=== PATIENT | male | born 1935 | race American Indian/Alaskan Native ===

== ENCOUNTER 2017-02-09 18:37 | Inpatient (IN) | payer MEDICARE ==
[2017-02-09 18:38] VITALS: BMI 24.3
[2017-02-09 19:30] LABS: RBC URINE 758 /hpf (0-3); URINE BACTERIA RARE (<OCC); URINE BILIRUBIN NEGATIVE (NEGATIVE); URINE BLOOD 3+ (NEGATIVE); URINE COLOR Red (YELLOW); URINE GLUCOSE (UA) NORMAL (Normal); URINE KETONE NEGATIVE (NEGATIVE); URINE LEUKOCYTE ESTERASE 2+ Leu/uL (Negative); URINE PROTEIN 2+ mg/dL (NEGATIVE); URINE UROBILINOGEN NORMAL mg/dL (0.2-1.0); WBC URINE 37 /hpf (0-5)
--- NOTE | 2017-02-09 20:05 | C.PDOC ---
History Of Present Illness Patient presents to the ER with a complaint of suprapubic cramping and blood tinged urine. Patient reports he had an indwelling hall placed 2 days ago. Denies fever, chills, nausea, or vomiting. Time Seen by Provider: 02/09/17 19:31 Chief Complaint (Nursing): Male Genitourinary History Per: Patient History/Exam Limitations: no limitations Onset/Duration Of Symptoms: Days Current Symptoms Are (Timing): Still Present Severity: Mild Pain Scale Rating Of: 4 Quality Of Discomfort: Cramping Associated Symptoms: Urinary Symptoms (Blood tinged urine). denies: Fever, Chills, Nausea, Vomiting Alleviating Factors: None Recent travel outside of the [place]: No Past Medical History Reviewed: Historical Data, Nursing Documentation, Vital Signs Vital Signs: Last Vital Signs Temp 97.5 F L 02/09/17 18:43 Pulse 85 02/09/17 18:43 Resp 16 02/09/17 18:43 BP 192/112 H 02/09/17 18:43 Pulse Ox 98 02/09/17 20:11 - Medical History PMH: Fractures (LEFT HEEL), Gall Bladder Disease, HTN, Pneumonia (CHILDHOOD) Surgical History: Cholecystectomy Family History: States: Unknown Family Hx - Social History Hx Alcohol Use: No Hx Substance Use: No Review Of Systems Constitutional: Negative for: Fever, Chills Gastrointestinal: Positive for: Abdominal Pain. Negative for: Nausea, Vomiting Genitourinary: Positive for: Other (Blood tinged urine) Physical Exam - Physical Exam Appears: Non-toxic, No Acute Distress Skin: Warm, Dry Head: Normacephalic Oral Mucosa: Moist Chest: Symmetrical, No Tenderness Cardiovascular: Rhythm Regular Respiratory: No Rales, No Rhonchi, No Wheezing Gastrointestinal/Abdominal: Soft, Tenderness (Suprapubic) Rectal: Other (Indwelling hall with leg bag that shows blood tinged urine with small blood clots) Neurological/Psych: Oriented x3 ED Course And Treatment O2 Sat by Pulse Oximetry: 98 (Room air) Pulse Ox Interpretation: Normal Progress Note: Urinalysis ordered. Catheter flushed with 50cc saline, appears patent. Disposition Discussed With : Chetan Ferguson Comment: accepted the pt on his service and took over the care at 9:00PM Counseled Patient/Family Regarding: Studies Performed - Disposition Disposition: HOSPITALIZED Disposition Time: 21:06 Condition: FAIR Forms: [facility] (Nepali) - POA Present On Arrival: None - Clinical Impression Clinical Impression: Hematuria, Hall catheter problem - Scribe Statement The provider has reviewed the documentation as recorded by the Scribe Anshul Plunkett All medical record entries made by the Scribe were at my direction and personally dictated by me. I have reviewed the chart and agree that the record accurately reflects my personal performance of the history, physical exam, medical decision making, and the department course for this patient. I have also personally directed, reviewed, and agree with the discharge instructions and disposition. Decision To Admit - Pt Status Changed To: Hospital Disposition Of: Observation - . Bed Request Type: Regular Admitting Physician: Chetan Ferguson Patient Diagnosis: Hematuria, Hall catheter problem
[2017-02-09 21:23] LABS: EOS # 0.1 K/uL (0.0-0.7); MONO # 0.6 K/uL (0.0-0.8); RED CELL DISTRIBUTION WIDTH 13.6 % (11.5-14.5)
[2017-02-09 21:31] LABS: BASO % 0.5 % (0.0-2.0); CHLORIDE 98 mmol/L (98-107); EOS % 2.2 % (0.0-4.0); HEMATOCRIT 43.5 % (35.0-51.0); LYMPH # 1.7 K/uL (1.0-4.3); LYMPH % 25.7 % (20.0-40.0); MEAN CELL VOLUME 84.2 fL (80.0-94.0); MEAN CORPUSCULAR HEMOGLOBIN 28.8 pg (27.0-31.0); MEAN CORPUSCULAR HGB CONC 34.2 g/dL (33.0-37.0); MEAN PLATELET VOLUME 8.2 fL (7.2-11.7); MONO % 8.8 % (0.0-10.0); NRBC % 0.1 % (0.0-2.0); POTASSIUM 4.4 mmol/L (3.6-5.2); SODIUM 135 mmol/L (132-148)
[2017-02-09 21:32] LABS: WHITE BLOOD COUNT 6.5 K/uL (4.8-10.8)
[2017-02-09 21:34] LABS: BLOOD UREA NITROGEN 12 mg/dL (9-20); CARBON DIOXIDE 29 mmol/L (22-30); GFR AFRICAN-AMERICAN > 60; GLUCOSE,RANDOM 124 mg/dL (75-110)
[2017-02-10] MEDS ORDERED: Loperamide Hydrochloride 1 mg/5 ml Cup PO ONE (00:46)
[2017-02-10] MEDS ORDERED: Pneumococcal 23-Valent Vaccine IM ONE (02:12)
[2017-02-10] MEDS: Metoprolol Succinate 25 mg XL Tab PO SCH (09:50)
[2017-02-10] MEDS: Pantoprazole 20 mg EC Tab PO SCH (09:50)
--- NOTE | 2017-02-10 12:57 | PCM.URO ---
Urology Progress Note - Subjective Abdominal Pain: Yes Hematuria: Yes - Objective Lab Studies: Reviewed (retention) Lab Results Last 24 Hours: Laboratory Results - last 24 hr 02/09/17 02/09/17 02/09/17 19:22 21:20 21:20 WBC 6.5 D RBC 5.17 Hgb 14.9 Hct 43.5 MCV 84.2 MCH 28.8 MCHC 34.2 RDW 13.6 Plt Count 237 MPV 8.2 Neut % (Auto) 62.8 Lymph % (Auto) 25.7 [place] % (Auto) 8.8 Eos % (Auto) 2.2 Baso % (Auto) 0.5 Neut # 4.1 Lymph # 1.7 [place] # 0.6 Eos # 0.1 Baso # 0.0 Sodium 135 Potassium 4.4 Chloride 98 Carbon Dioxide 29 Anion Gap 13 BUN 12 Creatinine 1.1 Est GFR ( Amer) > 60 Est GFR (Non-Af Amer) > 60 Random Glucose 124 H Calcium 9.0 Urine Color Red Urine Clarity Hazy Urine pH 6.0 Ur Specific [place] 1.014 Urine Protein 2+ H Urine Glucose (UA) Normal Urine Ketones Negative Urine Blood 3+ H Urine Nitrate Negative Urine Bilirubin Negative Urine Urobilinogen Normal Ur Leukocyte Esterase 2+ H Urine WBC (Auto) 37 H Urine RBC (Auto) 758 H Urine Bacteria Rare Intake & Output: Intake & Output 02/09/17 02/10/17 02/10/17 18:59 06:59 18:59 Output Total 500 Balance -500 Weight 170 lb Output: Urine 500 Urethral (Ole[place]) 500 Other: Voiding Method Indwelling Catheter Vital Signs: Vital Signs - 24 hr 02/09/17 02/09/17 02/09/17 18:43 21:11 22:28 Temperature 97.5 F L Pulse Rate 85 84 Respiratory 16 16 Rate Blood Pressure 192/112 H 141/80 O2 Sat by Pulse 98 98 99 Oximetry 02/10/17 02/10/17 00:00 01:28 Temperature 98.1 F Pulse Rate 74 Respiratory 20 18 Rate Blood Pressure 142/77 O2 Sat by Pulse 97 Oximetry
[2017-02-10] MEDS ORDERED: Magnesium Hydroxide Susp 30 ml UD PO ONE (13:30)
[2017-02-11 04:06] VITALS: RESP 20
[2017-02-11] MEDS ORDERED: Pneumococcal 23-Valent Vaccine IM ONE (10:00)
[2017-02-11] MEDS ORDERED: Influenza Vaccine 60 mcg/0.5 mL SYR (4YR UP) IM ONE (10:00)
[2017-02-11] MEDS: Metoprolol Succinate 25 mg XL Tab PO SCH (10:19)
[2017-02-11] MEDS: Pantoprazole 20 mg EC Tab PO SCH (10:23)
[2017-02-11] MEDS ORDERED: Magnesium Hydroxide Susp 30 ml UD PO ONE (10:47)
[2017-02-11] MEDS ORDERED: Oxycodone/Acetaminophen 5/325 mg Tab PO ONE (10:49)
--- NOTE | 2017-02-11 14:39 | PCM.URO ---
Urology Progress Note - Objective Lab Studies: Reviewed (trial of void) Intake & Output: Intake & Output 02/10/17 02/11/17 02/11/17 18:59 06:59 18:59 Intake Total 500 Output Total 1100 1200 3350 Balance -1100 -700 -3350 Intake: Oral 500 Output: Urine 1100 1200 3350 Urethral (Olea) 1100 1200 2975 Urine, Voided 375 Vital Signs: Vital Signs - 24 hr 02/11/17 02/11/17 00:00 07:25 Temperature 98.3 F 97.6 F Pulse Rate 67 65 Respiratory 20 20 Rate Blood Pressure 151/81 H 138/76 O2 Sat by Pulse 95 96 Oximetry
[2017-02-12] MEDS: Metoprolol Succinate 25 mg XL Tab PO SCH (09:35)
[2017-02-12] MEDS: Pantoprazole 20 mg EC Tab PO SCH (09:35)
[2017-02-13] MEDS: Metoprolol Succinate 25 mg XL Tab PO SCH (09:25)
[2017-02-13] MEDS: Pantoprazole 20 mg EC Tab PO SCH (09:30)
--- NOTE | 2017-02-13 21:06 | PCM.URO ---
Urology Progress Note - General General: absent: Tolerating Diet - Subjective Abdominal Pain: Yes (and pain of genitalia/urethra) Vomiting: No Voiding Well: No Dysuria: Yes Hematuria: No Good Stream: No (fair stream) Chest Pain: No Fever & Chills: No - Objective Intake & Output: Intake & Output 02/13/17 02/13/17 02/14/17 06:59 18:59 06:59 Intake Total 940 480 Output Total 1750 400 Balance -810 80 Intake: Intake, IV Amount 100 Right Hand 100 Oral 840 480 Output: Urine 1750 400 Urine, Voided 1750 400 Other: # Voids Urine, Voided 2 3 # Bowel Movements 1 1 Vital Signs: Vital Signs - 24 hr 02/13/17 02/13/17 02/13/17 00:00 07:50 15:00 Temperature 98 F 98.7 F 97.3 F L Pulse Rate 70 78 69 Respiratory 20 20 20 Rate Blood Pressure 143/76 128/75 141/96 H O2 Sat by Pulse 100 95 96 Oximetry - Physical Exam Abdominal Exam: Soft. absent: Non-Tender, Non-Distended (suprapubic tenderness) Back: No CVA Tenderness Genitalia: Without Inflammation Urine Color: Yellow - Plan Ambulation - Out of Bed: Yes Intake & Output: Yes Additional Information: Imp: dysuria. BPH - Date & Time of Note Date: 02/13/17 Time: 10:45
[2017-02-14] MEDS ORDERED: Iohexol 240 (50 ml) PO ONE (10:30)
[2017-02-14] MEDS: Metoprolol Succinate 25 mg XL Tab PO SCH (10:53)
[2017-02-14] MEDS: Pantoprazole 20 mg EC Tab PO SCH (10:54)
[2017-02-14 11:42] LABS: BASO % 0.6 % (0.0-2.0); EOS # 0.3 K/uL (0.0-0.7); EOS % 6.9 % (0.0-4.0); LYMPH # 1.1 K/uL (1.0-4.3); LYMPH % 28.2 % (20.0-40.0); MEAN CELL VOLUME 84.3 fL (80.0-94.0); MEAN CORPUSCULAR HEMOGLOBIN 28.3 pg (27.0-31.0); MEAN CORPUSCULAR HGB CONC 33.6 g/dL (33.0-37.0); MONO # 0.4 K/uL (0.0-0.8); MONO % 9.2 % (0.0-10.0); NRBC % 0.7 % (0.0-2.0); RED CELL DISTRIBUTION WIDTH 13.6 % (11.5-14.5); WHITE BLOOD COUNT 4.1 K/uL (4.8-10.8)
[2017-02-14 11:55] LABS: BLOOD UREA NITROGEN 15 mg/dL (9-20); CALCIUM 8.3 mg/dl (8.6-10.4); CARBON DIOXIDE 27 mmol/L (22-30); CHLORIDE 97 mmol/L (98-107); GFR AFRICAN-AMERICAN > 60; GLUCOSE,RANDOM 105 mg/dL (75-110); POTASSIUM 3.7 mmol/L (3.6-5.2); SODIUM 132 mmol/L (132-148)
--- NOTE | 2017-02-14 13:55 | CT ---
PROCEDURE: CT Abdomen and Pelvis with contrast HISTORY: lower abd/penis pain COMPARISON: None. TECHNIQUE: Helical CT of the abdomen and pelvis was performed following oral contrast administration. Contrast dose: None - intravenous contrast withheld due to history of iodinated contrast allergy. Radiation dose: Total exam DLP = 819.53 mGy-cm. This CT exam was performed using one or more of the following dose reduction techniques: Automated exposure control, adjustment of the mA and/or kV according to patient size, and/or use of iterative reconstruction technique. FINDINGS: LOWER THORAX: Trace oral contrast identified within the esophagus small hiatal hernia is identified. Limited linear atelectasis or fibrosis in the bilateral bases. LIVER: A 6 mm lucency seen at the right lobe liver inferiorly, too small to characterize. Remainder the unenhanced liver is unremarkable. GALLBLADDER AND BILE DUCTS: Prior cholecystectomy. Likely related prominence of the common bile duct is appreciated up to approximately 8 mm at the proximal to mid segment. No radiodense choledocholithiasis. PANCREAS: Unremarkable. No gross lesion or ductal dilatation. SPLEEN: Unremarkable. ADRENALS: Unremarkable. No mass. KIDNEYS AND URETERS: A punctate intrarenal calculus identified in the upper pole left kidney with a similar focus at the upper pole right kidney versus vascular calcification. No obstructive uropathy bilaterally. Nonspecific limited streaky perinephric changes are identified bilaterally. VASCULATURE: Unremarkable. No aortic aneurysm. BOWEL: Stomach is distended with retained food and oral contrast material with opacified small bowel loops appear diffusely unremarkable. Right colonic diverticulosis is appreciated, particularly at the proximal ascending colon and the cecum without diverticulitis pattern evident. Moderate fecal loading is seen throughout the colon. APPENDIX: Normal appendix. PERITONEUM: Unremarkable. No free fluid. No free air. LYMPH NODES: Unremarkable. No enlarged lymph nodes. BLADDER: Unremarkable. REPRODUCTIVE: Enlarged prostate gland is identified. BONES: No acute fracture. OTHER FINDINGS: None. IMPRESSION: 1. A distended but smooth and thin walled urinary bladder is identified in the pelvis. Punctate intrarenal calculi identified at the upper pole left kidney with a similar focus at the upper pole right kidney versus vascular calcification. No obstructive uropathy bilaterally. No pericystic reaction or fluid collection identified. 2. Right colonic diverticular changes without diverticulitis. Mildly prominent fecal loading seen throughout the more majority colon. 3. A tiny lucency seen at the right lobe liver too small to characterize. Lack of intravenous contrast limits evaluation. 4. Enlarged prostate gland.
--- NOTE | 2017-02-14 18:17 | CP.PCM.CON ---
<AndrewNehemiasKellee - Last Filed: 02/14/17 18:28> History of Present Illness - History of Present Illness History of Present Illness: Patient is an 81 year old male with PMH of leaky valve, HTN, HLD, and s/p ureteral stent placement presents with chest pain while urinating this morning. Patient reports no prior episode of chest pain or does it radiate. The chest pain lasted for less than a minute and gradually disappeared. Patient denies having the chest pain again since the first epsisode this morning. Patient states no remitting or exacerbation factors. Patient reports pain severity as 2- 3/10. Patient complains of suprapubic pain and dysuria since stent placement. Patient admits to hematuria and chills as well. Patient denies headache, fatigue , dizziness, SOB, palpitations, fever, N&V, diarrhea, constipation, LE pain, and LE edema. PMH: "leaky valve", HTN, HLD, and s/p ureteral stent placement Social Hx: Denies tobacco, alcohol, or illicit drug use. Allergies: shellfish Medications: * Flomax 0.4 mg x2 HS * Omeprazole 20 mg PO QD * Atorvastatin 20 mg PO QD * Toprol XL 25 mg PO QD * Cipro 500 mg Q12h * Norvasc 2.5 mg PO QD Surgical Hx: cholecystectomy Review of Systems - Review of Systems All systems: reviewed and no additional remarkable complaints except (as per HPI ) Past Patient History - Past Medical History & Family History Past Medical History?: Yes - Past Social History Smoking Status: Never Smoked - CARDIAC Hx Cardiac Disorders: Yes Hx Hypertension: Yes - PULMONARY Hx Respiratory Disorders: Yes Hx Pneumonia: Yes (CHILDHOOD) - NEUROLOGICAL Hx Neurological Disorder: Yes Hx Dizziness: Yes - HEENT Hx HEENT Problems: No - RENAL Hx Chronic Kidney Disease: No - ENDOCRINE/METABOLIC Hx Endocrine Disorders: No - HEMATOLOGICAL/ONCOLOGICAL Hx Blood Disorders: Yes Hx Shingles: Yes - INTEGUMENTARY Hx Dermatological Problems: No - MUSCULOSKELETAL/RHEUMATOLOGICAL Hx Falls: No - GASTROINTESTINAL Hx Gastrointestinal Disorders: No Hx Gall Bladder Disease: Yes - GENITOURINARY/GYNECOLOGICAL Hx Genitourinary Disorders: Yes Hx Prostate Problems: Yes - PSYCHIATRIC Hx Substance Use: No - SURGICAL HISTORY Hx Surgeries: No Hx Cholecystectomy: Yes - ANESTHESIA Hx Anesthesia: Yes Hx Anesthesia Reactions: No Hx Malignant Hyperthermia: No Has any member of the family had a problem w/ anesthesia?: No Meds Allergies/Adverse Reactions: Allergies Allergy/AdvReac Type Severity Reaction Status Date / Time shellfish derived AdvReac Severe NAUSEA Verified 02/09/17 18:40 - Medications Medications: Current Medications Amlodipine Besylate (Norvasc) 2.5 mg PO DAILY [facility] Last Admin: 02/14/17 10:54 Dose: 2.5 mg Ciprofloxacin (Cipro) 500 mg PO Q12 [facility] Last Admin: 02/14/17 10:53 Dose: 500 mg Doxycycline Hyclate (Doryx) 100 mg PO Q12H [facility] Last Admin: 02/14/17 17:42 Dose: 100 mg Gentamicin Sulfate 80 mg/ (Sodium Chloride) 102 mls @ 100 mls/hr IVPB Q24H [facility] Last Admin: 02/14/17 17:42 Dose: 100 mls/hr Ketorolac Tromethamine (Toradol) 15 mg IVP Q6 PRN PRN Reason: Pain, moderate (4-7) Metoprolol Succinate (Toprol Xl) 25 mg PO DAILY [facility] Last Admin: 02/14/17 10:53 Dose: 25 mg Oxybutynin Chloride (Ditropan Tab) 5 mg PO TID [facility] Last Admin: 02/14/17 17:42 Dose: 5 mg Pantoprazole Sodium (Protonix Ec Tab) 20 mg PO DAILY [facility] Last Admin: 02/14/17 10:54 Dose: 20 mg Phenazopyridine HCl (Pyridium) 200 mg PO TIDPC [facility] Last Admin: 02/14/17 17:42 Dose: 200 mg Rosuvastatin Calcium (Crestor) 10 mg PO HS [facility] Last Admin: 02/13/17 22:02 Dose: 10 mg Physical Exam - Constitutional Appears: Non-toxic, No Acute Distress, Younger Than Stated Age - Head Exam Head Exam: ATRAUMATIC, NORMAL INSPECTION, NORMOCEPHALIC - Eye Exam Eye Exam: EOMI, Normal appearance - ENT Exam ENT Exam: Mucous Membranes Moist - Respiratory Exam Respiratory Exam: Clear to Auscultation Bilateral, NORMAL BREATHING PATTERN. absent: Accessory Muscle Use, Rales, Rhonchi, Wheezes, Respiratory Distress - Cardiovascular Exam Cardiovascular Exam: RRR, +S1, +S2. absent: Bradycardia, Tachycardia, Diastolic murmur, Gallop, Rubs, Systolic Murmur - GI/Abdominal Exam GI & Abdominal Exam: Distended, Normal Bowel Sounds, Soft. absent: Guarding, Tenderness - Extremities Exam Extremities exam: Positive for: normal inspection. Negative for: calf tenderness, pedal edema - Neurological Exam Neurological exam: Alert, Oriented x3 - Psychiatric Exam Psychiatric exam: Normal Affect, Normal Mood - Skin Skin Exam: Dry, Intact, Normal Color, Warm Results - Vital Signs Recent Vital Signs: Last Vital Signs Temp 97.5 F L 02/14/17 15:00 Pulse 62 02/14/17 15:00 Resp 20 02/14/17 15:00 BP 138/77 02/14/17 15:00 Pulse Ox 96 02/14/17 15:00 - Labs Result Diagrams: 02/14/17 11:27 02/14/17 11:27 Labs: Laboratory Results - last 24 hr 02/14/17 02/14/17 11:27 11:27 WBC 4.1 L RBC 5.10 Hgb 14.4 Hct 43.0 MCV 84.3 MCH 28.3 MCHC 33.6 RDW 13.6 Plt Count 268 MPV 8.0 Neut % (Auto) 55.1 Lymph % (Auto) 28.2 [place] % (Auto) 9.2 Eos % (Auto) 6.9 H Baso % (Auto) 0.6 Neut # 2.2 Lymph # 1.1 [place] # 0.4 Eos # 0.3 Baso # 0.0 Sodium 132 Potassium 3.7 Chloride 97 L Carbon Dioxide 27 Anion Gap 11 BUN 15 Creatinine 1.1 Est GFR ( Amer) > 60 Est GFR (Non-Af Amer) > 60 Random Glucose 105 Calcium 8.3 L Assessment & Plan (1) Chest pain Assessment and Plan: * Dr. Dowd (cardio) consulted - recs appreciated * Dr. Duff/Dr. 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 Ferguson (urology) following * Continue home meds and others recs per Dr. Ferguson Status: Chronic (3) HTN (hypertension) Assessment and Plan: * continue home meds as stated above * Monitor Status: Acute (4) HLD (hyperlipidemia) Assessment and Plan: * Continue home meds as stated above * F/U lipid panel Status: Acute (5) Valvular disease Assessment and Plan: * F/U with PMD (Dr. Hughes) to clarify this medical history Status: Acute (6) Prophylactic measure Assessment and Plan: * contraindication to DVT prophylaxis: recent bleeding * continue GI prohylaxis Status: Acute <Amy Rodriguez V - Last Filed: 02/14/17 22:22> Meds - Medications Medications: Current Medications Amlodipine Besylate (Norvasc) 2.5 mg PO DAILY [facility] Last Admin: 02/14/17 10:54 Dose: 2.5 mg Ciprofloxacin (Cipro) 500 mg PO Q12 [facility] Last Admin: 02/14/17 21:59 Dose: 500 mg Doxycycline Hyclate (Doryx) 100 mg PO Q12H [facility] Last Admin: 02/14/17 17:42 Dose: 100 mg Gentamicin Sulfate 80 mg/ (Sodium Chloride) 102 mls @ 100 mls/hr IVPB Q24H [facility] Last Admin: 02/14/17 17:42 Dose: 100 mls/hr Ketorolac Tromethamine (Toradol) 15 mg IVP Q6 PRN PRN Reason: Pain, moderate (4-7) Last Admin: 02/14/17 18:16 Dose: 15 mg Metoprolol Succinate (Toprol Xl) 25 mg PO DAILY [facility] Last Admin: 02/14/17 10:53 Dose: 25 mg Oxybutynin Chloride (Ditropan Tab) 5 mg PO TID [facility] Last Admin: 02/14/17 17:42 Dose: 5 mg Pantoprazole Sodium (Protonix Ec Tab) 20 mg PO DAILY [facility] Last Admin: 02/14/17 10:54 Dose: 20 mg Phenazopyridine HCl (Pyridium) 200 mg PO TIDPC [facility] Last Admin: 02/14/17 17:42 Dose: 200 mg Ranolazine (Ranexa) 500 mg PO BID [facility] Rosuvastatin Calcium (Crestor) 10 mg PO HS [facility] Last Admin: 02/14/17 22:00 Dose: 10 mg Results - Vital Signs Recent Vital Signs: Last Vital Signs Temp 97.5 F L 02/14/17 15:00 Pulse 62 02/14/17 15:00 Resp 20 02/14/17 15:00 BP 138/77 02/14/17 15:00 Pulse Ox 96 02/14/17 15:00 - Labs Result Diagrams: 02/14/17 11:27 02/14/17 11:27 Labs: Laboratory Results - last 24 hr 02/14/17 02/14/17 02/14/17 11:27 11:27 19:56 WBC 4.1 L RBC 5.10 Hgb 14.4 Hct 43.0 MCV 84.3 MCH 28.3 MCHC 33.6 RDW 13.6 Plt Count 268 MPV 8.0 Neut % (Auto) 55.1 Lymph % (Auto) 28.2 [place] % (Auto) 9.2 Eos % (Auto) 6.9 H Baso % (Auto) 0.6 Neut # 2.2 Lymph # 1.1 [place] # 0.4 Eos # 0.3 Baso # 0.0 Sodium 132 Potassium 3.7 Chloride 97 L Carbon Dioxide 27 Anion Gap 11 BUN 15 Creatinine 1.1 Est GFR ( Amer) > 60 Est GFR (Non-Af Amer) > 60 Random Glucose 105 Calcium 8.3 L Total Creatine Kinase 117 CK-MB (Mass) 0.91 Troponin I, Quant < 0.0120 Attending/Attestation - Attestation I have personally seen and examined this patient.: Yes I have fully participated in the care of the patient.: Yes I have reviewed all pertinent clinical information: Yes Notes (Text): Patient seen, examined, and case discussed with day-time resident. Patient seen with patient's brother present at bedside this evening. Patient permits speaking about his medical information in front of his brother. Patient with known hx of hypertension, and leaky valve comes under the urology service following urologic procedure about one week ago. Hospitalist service consulted for medical management. patient had report chest pain, while using the bathroom in attempt to urinate this morning. While patient was getting up, patient had nonradiating chest pain which resolved. Patient denies further episodes of chest pain. Patient reports abdominal pain as well. Reviewed CT scan with the patient-->right colonic diverticular changes without diverticulitis. Mild prominent fecal loading seen throughout the majority of colon. Distended but smooth and thin walled urinary bladder is identified in the pevlis. Punctuate intrarenal calculi identified at the upper pole left kdieny w similar focus at upper pole right kidney versus vascular calcidcation. No obstructive uropathy bilaterally. No percystic reaction or fluid collection identified. Enlarged prostate. Patient is distended on exam, likely due to bladder-->had spoken with urologist earliery, planning on putting in [place] later today. Ordered for EKG and SANDRA, Troponin is negative. Unable to compare with prior EKG. Chest xray ordered--pending official report. Ordered for probnp, a1c, and lipid panel in the AM and ordered for echocardiogram. patient reports he is seen by Dr. Orourke/Dr. Pena cardiology group as outpatient. I believe Dr. Hughes, who is PMD, recommended to be seen by Dr. Dowd, horologist apprentice per conversation with urology. Patient showed his current medications that he takes outpatient. Patient is not on any blood thinner from his medication; will attempt to call PMD and/or pharmacy in the morning to clarify history. Assessment/Plan (1) Chest pain Assessment and Plan: * Dr. Dowd (cardio) consulted - recs appreciated * Dr. Duff/Dr. 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 Ferguson (urology) following * Continue home meds and others recs per Dr. Ferguson * Management per urology Status: Chronic (3) HTN (hypertension) Assessment and Plan: * Toprol XL 25 mg PO QDaily * Norvasc 2.5 mg PO QDaily Status: Chronic (4) HLD (hyperlipidemia) Assessment and Plan: * Continue home meds as stated above * F/U lipid panel in AM * Atorvastatin 20 mg PO Qdaily-->Switched to Crestor due to hospital availability Status: Acute (5) Valvular disease Assessment and Plan: * F/U with PMD (Dr. Hughes) to clarify this medical history * Pending echocardiogram Status: Acute (6) Prophylactic measure Assessment and Plan: * contraindication to DVT prophylaxis: recent bleeding * continue GI prohylaxis Status: Acute
[2017-02-14] MEDS: Ranolazine 500 mg Extended Release Tablets PO SCH (19:45)
[2017-02-15 06:59] LABS: ALKALINE PHOSPHATASE 80 U/L (38-126); ALT/SGPT 43 U/L (21-72); AST/SGOT 34 U/L (17-59); BILIRUBIN,TOTAL 0.6 mg/dL (0.2-1.3); BLOOD UREA NITROGEN 15 mg/dL (9-20); CALCIUM 8.4 mg/dl (8.6-10.4); CARBON DIOXIDE 26 mmol/L (22-30); CHLORIDE 101 mmol/L (98-107); CHOLESTEROL 104 mg/dL (0-199); GFR AFRICAN-AMERICAN > 60; GLUCOSE,RANDOM 82 mg/dL (75-110); MAGNESIUM 1.7 mg/dL (1.6-2.3); POTASSIUM 4.2 mmol/L (3.6-5.2); SODIUM 135 mmol/L (132-148); TOTAL PROTEIN 6.7 g/dL (6.3-8.3)
[2017-02-15 07:02] LABS: BASO % 0.7 % (0.0-2.0); EOS # 0.3 K/uL (0.0-0.7); EOS % 6.7 % (0.0-4.0); HEMATOCRIT 41.7 % (35.0-51.0); LYMPH # 1.5 K/uL (1.0-4.3); LYMPH % 33.1 % (20.0-40.0); MEAN CELL VOLUME 84.2 fL (80.0-94.0); MEAN CORPUSCULAR HEMOGLOBIN 28.6 pg (27.0-31.0); MEAN PLATELET VOLUME 7.9 fL (7.2-11.7); MONO # 0.5 K/uL (0.0-0.8); MONO % 10.8 % (0.0-10.0); NRBC % 0.1 % (0.0-2.0); RED CELL DISTRIBUTION WIDTH 13.8 % (11.5-14.5); WHITE BLOOD COUNT 4.5 K/uL (4.8-10.8)
--- NOTE | 2017-02-15 08:01 | RAD ---
HISTORY: chest pain COMPARISON: Chest radiographs 01/30/2017. FINDINGS: LUNGS: No definite infiltrate appreciate bilaterally with small nodular density faintly seen the left apex remaining difficult to differentiate between pulmonary density and possible medial left 1st rib density. Apical lordotic chest radiograph or chest CT can be utilized for follow-up. No infiltrate identified bilaterally. PLEURA: No significant pleural effusion identified, no pneumothorax apparent. CARDIOVASCULAR: Normal. OSSEOUS STRUCTURES: No significant abnormalities. VISUALIZED UPPER ABDOMEN: Surgical clips in the right upper quadrant abdomen as well as retained oral contrast within apparent upper abdomen large bowel segment. OTHER FINDINGS: None. IMPRESSION: No acute infiltrate or pleural effusion identified bilaterally. Nodular density at the left apex remains in question. Follow-up apical lordotic chest radiography or chest CT is advised for further evaluation.
--- NOTE | 2017-02-15 08:57 | PCM.URO ---
Urology Progress Note - Subjective Abdominal Pain: Yes - Objective Lab Studies: Reviewed (hall insertion for retention) Lab Results Last 24 Hours: Laboratory Results - last 24 hr 02/14/17 02/14/17 02/14/17 11:27 11:27 19:56 WBC 4.1 L RBC 5.10 Hgb 14.4 Hct 43.0 MCV 84.3 MCH 28.3 MCHC 33.6 RDW 13.6 Plt Count 268 MPV 8.0 Neut % (Auto) 55.1 Lymph % (Auto) 28.2 [place] % (Auto) 9.2 Eos % (Auto) 6.9 H Baso % (Auto) 0.6 Neut # 2.2 Lymph # 1.1 [place] # 0.4 Eos # 0.3 Baso # 0.0 Sodium 132 Potassium 3.7 Chloride 97 L Carbon Dioxide 27 Anion Gap 11 BUN 15 Creatinine 1.1 Est GFR ( Amer) > 60 Est GFR (Non-Af Amer) > 60 Random Glucose 105 Calcium 8.3 L Magnesium Total Bilirubin AST ALT Alkaline Phosphatase Total Creatine Kinase 117 CK-MB (Mass) 0.91 Troponin I, Quant < 0.0120 NT-Pro-B Natriuret Pep Total Protein Albumin Globulin Albumin/Globulin Ratio Triglycerides Cholesterol LDL Cholesterol Direct HDL Cholesterol Random Gentamicin 02/15/17 02/15/17 02/15/17 06:33 06:33 06:33 WBC 4.5 L RBC 4.95 Hgb 14.2 Hct 41.7 MCV 84.2 MCH 28.6 MCHC 34.0 RDW 13.8 Plt Count 278 MPV 7.9 Neut % (Auto) 48.7 L Lymph % (Auto) 33.1 [place] % (Auto) 10.8 H Eos % (Auto) 6.7 H Baso % (Auto) 0.7 Neut # 2.2 Lymph # 1.5 [place] # 0.5 Eos # 0.3 Baso # 0.0 Sodium 135 Potassium 4.2 Chloride 101 Carbon Dioxide 26 Anion Gap 12 BUN 15 Creatinine 1.1 Est GFR ( Amer) > 60 Est GFR (Non-Af Amer) > 60 Random Glucose 82 Calcium 8.4 L Magnesium 1.7 Total Bilirubin 0.6 AST 34 ALT 43 Alkaline Phosphatase 80 Total Creatine Kinase 96 CK-MB (Mass) 0.70 Troponin I, Quant < 0.0120 NT-Pro-B Natriuret Pep 116 Total Protein 6.7 Albumin 3.3 L Globulin 3.4 Albumin/Globulin Ratio 1.0 Triglycerides 103 Cholesterol 104 LDL Cholesterol Direct 50 HDL Cholesterol 35 Random Gentamicin 0.7 Intake & Output: Intake & Output 02/14/17 02/15/17 02/15/17 18:59 06:59 18:59 Intake Total 950 Output Total 500 1800 Balance -500 -850 Intake: Intake, IV Amount 100 Right Hand 100 Oral 850 Output: Urine 500 1800 Urethral (Hall) 1100 Urine, Voided 500 700 Other: # Voids Urine, Voided 650 # Bowel Movements 0 Vital Signs: Vital Signs - 24 hr 02/14/17 02/15/17 02/15/17 15:00 00:00 07:37 Temperature 97.5 F L 98 F 98.1 F Pulse Rate 62 67 64 Respiratory 20 20 20 Rate Blood Pressure 138/77 148/72 147/80 O2 Sat by Pulse 96 95 97 Oximetry
[2017-02-15] MEDS: Metoprolol Succinate 25 mg XL Tab PO SCH (11:09)
[2017-02-15] MEDS: Pantoprazole 20 mg EC Tab PO SCH (11:10)
[2017-02-15] MEDS: Ranolazine 500 mg Extended Release Tablets PO SCH ×2 (11:11→17:58)
[2017-02-15] MEDS: POLYETHYLENE GLYCOL 3350 17 GM/Dose PACKET PO SCH (15:00)
--- NOTE | 2017-02-15 16:20 | CP.PCM.PN ---
<Kellee Morales - Last Filed: 02/15/17 16:12> Subjective - Date & Time of Evaluation Date of Evaluation: 02/15/17 Time of Evaluation: 07:45 - Subjective Subjective: Medicine note for Dr. Rodriguez Patient seen and examined at bedside. Patient resting comfortably in bed with new complaints at this time. Patient is feeling well today and says he is having some abdominal distention and pain when palpated over the suprapubic area but is otherwise doing well. Patient denies any more chest pain since the first short episode yesterday morning. Patient denies fever, chills, chest pain , SOB, N&V, diarrhea, constipation, calf pain, and LE swelling. Objective - Vital Signs/Intake and Output Vital Signs (last 24 hours): Temp Pulse Resp BP Pulse Ox 98 F 61 20 130/69 96 02/15/17 15:00 02/15/17 15:00 02/15/17 15:00 02/15/17 15:00 02/15/17 15:00 Intake and Output: 02/15/17 02/15/17 06:59 18:59 Intake Total 950 500 Output Total 1800 600 Balance -850 -100 - Medications Medications: Current Medications Amlodipine Besylate (Norvasc) 2.5 mg PO DAILY [facility] Last Admin: 02/15/17 11:10 Dose: 2.5 mg Ciprofloxacin (Cipro) 500 mg PO Q12 [facility] Last Admin: 02/15/17 11:09 Dose: 500 mg Docusate Sodium (Colace) 100 mg PO TID [facility] Last Admin: 02/15/17 14:10 Dose: 100 mg Doxycycline Hyclate (Doryx) 100 mg PO Q12H [facility] Last Admin: 02/15/17 05:29 Dose: 100 mg Gentamicin Sulfate 80 mg/ (Sodium Chloride) 102 mls @ 100 mls/hr IVPB Q24H [facility] Last Admin: 02/14/17 17:42 Dose: 100 mls/hr Ketorolac Tromethamine (Toradol) 15 mg IVP Q6 PRN PRN Reason: Pain, moderate (4-7) Last Admin: 02/14/17 18:16 Dose: 15 mg Metoprolol Succinate (Toprol Xl) 25 mg PO DAILY [facility] Last Admin: 02/15/17 11:09 Dose: 25 mg Oxybutynin Chloride (Ditropan Tab) 5 mg PO TID [facility] Last Admin: 02/15/17 14:12 Dose: 5 mg Pantoprazole Sodium (Protonix Ec Tab) 20 mg PO DAILY [facility] Last Admin: 02/15/17 11:10 Dose: 20 mg Phenazopyridine HCl (Pyridium) 200 mg PO TIDPC [facility] Last Admin: 02/15/17 14:10 Dose: 200 mg Polyethylene Glycol (Miralax) 17 gm PO DAILY [facility] Ranolazine (Ranexa) 500 mg PO BID [facility] Last Admin: 02/15/17 11:11 Dose: 500 mg Rosuvastatin Calcium (Crestor) 10 mg PO HS [facility] Last Admin: 02/14/17 22:00 Dose: 10 mg - Labs Labs: 02/15/17 06:33 02/15/17 06:33 - Additional Findings Additional findings: - Constitutional Appears: Non-toxic, No Acute Distress, Younger Than Stated Age - Head Exam Head Exam: ATRAUMATIC, NORMAL INSPECTION, NORMOCEPHALIC - Eye Exam Eye Exam: EOMI, Normal appearance - ENT Exam ENT Exam: Mucous Membranes Moist - Respiratory Exam Respiratory Exam: Clear to Auscultation Bilateral, NORMAL BREATHING PATTERN. absent: Accessory Muscle Use, Rales, Rhonchi, Wheezes, Respiratory Distress - Cardiovascular Exam Cardiovascular Exam: RRR, +S1, +S2. absent: Bradycardia, Tachycardia, Diastolic murmur, Gallop, Rubs, Systolic Murmur - GI/Abdominal Exam GI & Abdominal Exam: Distended, Normal Bowel Sounds, Soft. absent: Guarding, Tenderness - Extremities Exam Extremities exam: Positive for: normal inspection. 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 Dowd (cardio) consulted - recs appreciated * Dr. Duff/Dr. Pena have both seen patient in the past * EKG: right BBB, otherwise normal EKG * CXR: No acute infiltrate or pleural effusion identified bilaterally. Nodular density at the left apex remains in question. Follow-up apical lordotic chest radiography or chest CT is advised for further evaluation. 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 Ferguson (urology) following * Continue home meds and others recs per Dr. Ferguson Status: Chronic (3) HTN (hypertension) Assessment and Plan: * continue home meds as stated above * Monitor Status: Acute (4) HLD (hyperlipidemia) Assessment and Plan: * Continue home meds as stated above * lipid panel: TRIG 103, CHOL 104, LDL 50, HDL 35 * counseled on diet to increase HDL Status: Acute (5) Valvular disease Assessment and Plan: * F/U with PMD (Dr. Hughes) to clarify this medical history Status: Acute (6) Prophylactic measure Assessment and Plan: * contraindication to DVT prophylaxis: recent bleeding * continue GI prohylaxis Status: Acute <Amy Rodriguez V - Last Filed: 02/17/17 09:36> Objective - Vital Signs/Intake and Output Vital Signs (last 24 hours): Temp Pulse Resp BP Pulse Ox 98.5 F 61 20 139/75 95 02/17/17 07:56 02/17/17 07:56 02/17/17 07:56 02/17/17 07:56 02/17/17 07:56 Intake and Output: 02/17/17 02/17/17 06:59 18:59 Intake Total 500 Output Total 3400 Balance -2900 - Medications Medications: Current Medications Amlodipine Besylate (Norvasc) 2.5 mg PO DAILY [facility] Last Admin: 02/17/17 09:14 Dose: 2.5 mg Ciprofloxacin (Cipro) 500 mg PO Q12 [facility] Last Admin: 02/17/17 09:14 Dose: 500 mg Docusate Sodium (Colace) 100 mg PO TID [facility] Last Admin: 02/17/17 09:14 Dose: 100 mg Doxycycline Hyclate (Doryx) 100 mg PO Q12H [facility] Last Admin: 02/17/17 05:15 Dose: 100 mg Gentamicin Sulfate 80 mg/ (Sodium Chloride) 102 mls @ 100 mls/hr IVPB Q24H [facility] Last Admin: 02/16/17 17:16 Dose: 100 mls/hr Ketorolac Tromethamine (Toradol) 15 mg IVP Q6 PRN PRN Reason: Pain, moderate (4-7) Last Admin: 02/14/17 18:16 Dose: 15 mg Metoprolol Succinate (Toprol Xl) 25 mg PO DAILY [facility] Last Admin: 02/17/17 09:14 Dose: 25 mg Oxybutynin Chloride (Ditropan Tab) 5 mg PO TID [facility] Last Admin: 02/17/17 09:24 Dose: 5 mg Pantoprazole Sodium (Protonix Ec Tab) 20 mg PO DAILY [facility] Last Admin: 02/17/17 09:14 Dose: 20 mg Phenazopyridine HCl (Pyridium) 200 mg PO TIDPC [facility] Last Admin: 02/17/17 09:14 Dose: 200 mg Polyethylene Glycol (Miralax) 17 gm PO DAILY [facility] Last Admin: 02/17/17 09:14 Dose: 17 gm Ranolazine (Ranexa) 500 mg PO BID [facility] Last Admin: 02/17/17 09:14 Dose: 500 mg Rosuvastatin Calcium (Crestor) 10 mg PO HS [facility] Last Admin: 02/16/17 21:55 Dose: 10 mg - Labs Labs: 02/17/17 07:42 02/17/17 07:42 Attending/Attestation - Attestation I have personally seen and examined this patient.: Yes I have fully participated in the care of the patient.: Yes I have reviewed all pertinent clinical information, including history, physical exam and plan: Yes Notes (Text): This is late computer entry for 02/15/17. Medicine on consult for medical management Patient seen, examined, and case discussed with day-time resident. Patient seen in the afternoon during rounds. Patient denies chest pain, denies palpitations, reports he had has bowel movement s X2, no diarrhea, and had Hall placed overnight by urology. Patient has completed echocardiogram awaiting report and cardiology recommendations. Assessment/Plan (1) Chest pain Assessment and Plan: * Dr. Dowd (cardio) consulted - recs appreciated * Dr. Duff/Dr. Pena have both seen patient in the past * EKG: right BBBB, no prior EKG to compare to * CXR: : No acute infiltrate or pleural effusion identified bilaterally. Nodular density at the left apex remains in question. Follow-up apical lordotic chest radiography or chest CT is advised for further evaluation. 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 Ferguson (urology) following * Continue home meds and others recs per Dr. Ferguson * Management per urology * s/p hall insertion 02/15 Status: Chronic (3) HTN (hypertension) Assessment and Plan: * Toprol XL 25 mg PO QDaily * Norvasc 2.5 mg PO QDaily Status: Chronic (4) HLD (hyperlipidemia) Assessment and Plan: * Continue home meds as stated above * Lipid panel: TRIG 103, CHOL 104, LDL 50, HDL 35-->will need OTC omega 3 Fa to bring up HDL * Atorvastatin 20 mg PO Qdaily-->Switched to Crestor due to hospital availability Status: Acute (5) Valvular disease Assessment and Plan: * F/U with PMD (Dr. Hughes) to clarify this medical history * Pending echocardiogram Status: Acute (6) Prophylactic measure Assessment and Plan: * contraindication to DVT prophylaxis: recent bleeding * continue GI prohylaxis Status: Acute
--- NOTE | 2017-02-15 23:06 | CP.PCM.CON ---
History of Present Illness - History of Present Illness History of Present Illness: Patient is an 81 year old male with PMH of leaky valve, HTN, HLD, and s/p ureteral stent placement presents with chest pain while urinating this morning. Patient reports no prior episode of chest pain or does it radiate. The chest pain lasted for less than a minute and gradually disappeared. Patient denies having the chest pain again since the first epsisode this morning. Patient states no remitting or exacerbation factors. Patient reports pain severity as 2- 3/10. Patient complains of suprapubic pain and dysuria since stent placement. Patient admits to hematuria and chills as well. Patient denies headache, fatigue , dizziness, SOB, palpitations, fever, N&V, diarrhea, constipation, LE pain, and LE edema Review of Systems - Cardiovascular Cardiovascular: Chest Pain. absent: Pedal Edema - Respiratory Respiratory: Dyspnea on Exertion - Gastrointestinal Gastrointestinal: absent: Melena, Nausea, Vomiting - Musculoskeletal Musculoskeletal: Arthralgias Past Patient History - Past Medical History & Family History Past Medical History?: Yes - Past Social History Smoking Status: Never Smoked - CARDIAC Hx Cardiac Disorders: Yes Hx Hypertension: Yes - PULMONARY Hx Respiratory Disorders: Yes Hx Pneumonia: Yes (CHILDHOOD) - NEUROLOGICAL Hx Neurological Disorder: Yes Hx Dizziness: Yes - HEENT Hx HEENT Problems: No - RENAL Hx Chronic Kidney Disease: No - ENDOCRINE/METABOLIC Hx Endocrine Disorders: No - HEMATOLOGICAL/ONCOLOGICAL Hx Blood Disorders: Yes Hx Shingles: Yes - INTEGUMENTARY Hx Dermatological Problems: No - MUSCULOSKELETAL/RHEUMATOLOGICAL Hx Falls: No - GASTROINTESTINAL Hx Gastrointestinal Disorders: No Hx Gall Bladder Disease: Yes - GENITOURINARY/GYNECOLOGICAL Hx Genitourinary Disorders: Yes Hx Prostate Problems: Yes - PSYCHIATRIC Hx Substance Use: No - SURGICAL HISTORY Hx Surgeries: No Hx Cholecystectomy: Yes - ANESTHESIA Hx Anesthesia: Yes Hx Anesthesia Reactions: No Hx Malignant Hyperthermia: No Has any member of the family had a problem w/ anesthesia?: No Meds Allergies/Adverse Reactions: Allergies Allergy/AdvReac Type Severity Reaction Status Date / Time shellfish derived AdvReac Severe NAUSEA Verified 02/09/17 18:40 - Medications Medications: Current Medications Amlodipine Besylate (Norvasc) 2.5 mg PO DAILY [facility] Last Admin: 02/15/17 11:10 Dose: 2.5 mg Ciprofloxacin (Cipro) 500 mg PO Q12 [facility] Last Admin: 02/15/17 21:38 Dose: 500 mg Docusate Sodium (Colace) 100 mg PO TID [facility] Last Admin: 02/15/17 17:58 Dose: 100 mg Doxycycline Hyclate (Doryx) 100 mg PO Q12H [facility] Last Admin: 02/15/17 17:58 Dose: 100 mg Gentamicin Sulfate 80 mg/ (Sodium Chloride) 102 mls @ 100 mls/hr IVPB Q24H [facility] Last Admin: 02/15/17 17:59 Dose: 100 mls/hr Ketorolac Tromethamine (Toradol) 15 mg IVP Q6 PRN PRN Reason: Pain, moderate (4-7) Last Admin: 02/14/17 18:16 Dose: 15 mg Metoprolol Succinate (Toprol Xl) 25 mg PO DAILY [facility] Last Admin: 02/15/17 11:09 Dose: 25 mg Oxybutynin Chloride (Ditropan Tab) 5 mg PO TID [facility] Last Admin: 02/15/17 17:58 Dose: 5 mg Pantoprazole Sodium (Protonix Ec Tab) 20 mg PO DAILY [facility] Last Admin: 02/15/17 11:10 Dose: 20 mg Phenazopyridine HCl (Pyridium) 200 mg PO TIDPC [facility] Last Admin: 02/15/17 18:01 Dose: 200 mg Polyethylene Glycol (Miralax) 17 gm PO DAILY [facility] Last Admin: 02/15/17 15:00 Dose: 17 gm Ranolazine (Ranexa) 500 mg PO BID [facility] Last Admin: 02/15/17 17:58 Dose: 500 mg Rosuvastatin Calcium (Crestor) 10 mg PO HS [facility] Last Admin: 02/15/17 21:39 Dose: 10 mg Physical Exam - Constitutional Appears: Non-toxic - Head Exam Head Exam: NORMAL INSPECTION - Eye Exam Eye Exam: absent: Scleral icterus - ENT Exam ENT Exam: Mucous Membranes Moist - Neck Exam Neck exam: Positive for: Full Rom - Respiratory Exam Respiratory Exam: Decreased Breath Sounds - Cardiovascular Exam Cardiovascular Exam: REGULAR RHYTHM - GI/Abdominal Exam GI & Abdominal Exam: Soft, Tenderness - Extremities Exam Extremities exam: Negative for: pedal edema Results - Vital Signs Recent Vital Signs: Last Vital Signs Temp 98 F 02/15/17 15:00 Pulse 61 02/15/17 15:00 Resp 20 02/15/17 15:00 BP 130/69 02/15/17 15:00 Pulse Ox 96 02/15/17 15:00 - Labs Result Diagrams: 02/15/17 06:33 02/15/17 06:33 Labs: Laboratory Results - last 24 hr 02/15/17 02/15/17 02/15/17 06:33 06:33 06:33 WBC RBC Hgb Hct MCV MCH MCHC RDW Plt Count MPV Neut % (Auto) Lymph % (Auto) [place] % (Auto) Eos % (Auto) Baso % (Auto) Neut # Lymph # [place] # Eos # Baso # Sodium 135 Potassium 4.2 Chloride 101 Carbon Dioxide 26 Anion Gap 12 BUN 15 Creatinine 1.1 Est GFR ( Amer) > 60 Est GFR (Non-Af Amer) > 60 Random Glucose 82 Hemoglobin A1c 6.3 Calcium 8.4 L Magnesium 1.7 Total Bilirubin 0.6 AST 34 ALT 43 Alkaline Phosphatase 80 Total Creatine Kinase 96 CK-MB (Mass) 0.70 Troponin I, Quant < 0.0120 NT-Pro-B Natriuret Pep 116 Total Protein 6.7 Albumin 3.3 L Globulin 3.4 Albumin/Globulin Ratio 1.0 Triglycerides 103 Cholesterol 104 LDL Cholesterol Direct 50 HDL Cholesterol 35 Random Gentamicin 0.7 02/15/17 06:33 WBC 4.5 L RBC 4.95 Hgb 14.2 Hct 41.7 MCV 84.2 MCH 28.6 MCHC 34.0 RDW 13.8 Plt Count 278 MPV 7.9 Neut % (Auto) 48.7 L Lymph % (Auto) 33.1 [place] % (Auto) 10.8 H Eos % (Auto) 6.7 H Baso % (Auto) 0.7 Neut # 2.2 Lymph # 1.5 [place] # 0.5 Eos # 0.3 Baso # 0.0 Sodium Potassium Chloride Carbon Dioxide Anion Gap BUN Creatinine Est GFR ( Amer) Est GFR (Non-Af Amer) Random Glucose Hemoglobin A1c Calcium Magnesium Total Bilirubin AST ALT Alkaline Phosphatase Total Creatine Kinase CK-MB (Mass) Troponin I, Quant NT-Pro-B Natriuret Pep Total Protein Albumin Globulin Albumin/Globulin Ratio Triglycerides Cholesterol LDL Cholesterol Direct HDL Cholesterol Random Gentamicin Assessment & Plan - Assessment and Plan (Free Text) Assessment: Chest pain - r/o CAD Hx of valvular heart disease BPH Lipid disorder Plan: Agree with management Meds reviewed - totally agree w/ present regimen. Lexiscan stress test when issues are completely addressed.
--- NOTE | 2017-02-16 05:58 | CP.PCM.PN ---
<Olivia Alamo - Last Filed: 02/16/17 05:55> Subjective - Date & Time of Evaluation Date of Evaluation: 02/16/17 Time of Evaluation: 05:55 - Subjective Subjective: Patient seen and examined at bedside. Patient resting comfortably in bed with new complaints at this time. Patient is feeling well today and says he is having some abdominal distention and pain when palpated over the suprapubic area but is otherwise doing well. Patient denies any chest pain fever, chills, SOB, N&V, diarrhea, constipation, calf pain, and LE swelling. Objective - Vital Signs/Intake and Output Vital Signs (last 24 hours): Temp Pulse Resp BP Pulse Ox 98.1 F 85 20 144/89 95 02/16/17 00:00 02/16/17 00:00 02/16/17 00:00 02/16/17 00:00 02/16/17 00:00 Intake and Output: 02/15/17 02/16/17 18:59 06:59 Intake Total 500 950 Output Total 600 3750 Balance -100 -2800 - Medications Medications: Current Medications Amlodipine Besylate (Norvasc) 2.5 mg PO DAILY [facility] Last Admin: 02/15/17 11:10 Dose: 2.5 mg Ciprofloxacin (Cipro) 500 mg PO Q12 [facility] Last Admin: 02/15/17 21:38 Dose: 500 mg Docusate Sodium (Colace) 100 mg PO TID [facility] Last Admin: 02/15/17 17:58 Dose: 100 mg Doxycycline Hyclate (Doryx) 100 mg PO Q12H [facility] Last Admin: 02/15/17 17:58 Dose: 100 mg Gentamicin Sulfate 80 mg/ (Sodium Chloride) 102 mls @ 100 mls/hr IVPB Q24H [facility] Last Admin: 02/15/17 17:59 Dose: 100 mls/hr Ketorolac Tromethamine (Toradol) 15 mg IVP Q6 PRN PRN Reason: Pain, moderate (4-7) Last Admin: 02/14/17 18:16 Dose: 15 mg Metoprolol Succinate (Toprol Xl) 25 mg PO DAILY [facility] Last Admin: 02/15/17 11:09 Dose: 25 mg Oxybutynin Chloride (Ditropan Tab) 5 mg PO TID [facility] Last Admin: 02/15/17 17:58 Dose: 5 mg Pantoprazole Sodium (Protonix Ec Tab) 20 mg PO DAILY [facility] Last Admin: 02/15/17 11:10 Dose: 20 mg Phenazopyridine HCl (Pyridium) 200 mg PO TIDPC [facility] Last Admin: 02/15/17 18:01 Dose: 200 mg Polyethylene Glycol (Miralax) 17 gm PO DAILY [facility] Last Admin: 02/15/17 15:00 Dose: 17 gm Ranolazine (Ranexa) 500 mg PO BID [facility] Last Admin: 02/15/17 17:58 Dose: 500 mg Rosuvastatin Calcium (Crestor) 10 mg PO HS [facility] Last Admin: 02/15/17 21:39 Dose: 10 mg - Labs Labs: 02/15/17 06:33 02/15/17 06:33 - Additional Findings Additional findings: - Constitutional Appears: Non-toxic, No Acute Distress, Younger Than Stated Age - Head Exam Head Exam: ATRAUMATIC, NORMAL INSPECTION, NORMOCEPHALIC - Eye Exam Eye Exam: EOMI, Normal appearance - ENT Exam ENT Exam: Mucous Membranes Moist - Respiratory Exam Respiratory Exam: Clear to Auscultation Bilateral, NORMAL BREATHING PATTERN. absent: Accessory Muscle Use, Rales, Rhonchi, Wheezes, Respiratory Distress - Cardiovascular Exam Cardiovascular Exam: RRR, +S1, +S2. absent: Bradycardia, Tachycardia, Diastolic murmur, Gallop, Rubs, Systolic Murmur - GI/Abdominal Exam GI & Abdominal Exam: Distended, Normal Bowel Sounds, Soft. absent: Guarding, Tenderness - Extremities Exam Extremities exam: Positive for: normal inspection. 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 Dwod (cardio) consulted - recs appreciated * Dr. Duff/Dr. Pena have both seen patient in the past * EKG: right BBB, otherwise normal EKG * CXR: No acute infiltrate or pleural effusion identified bilaterally. Nodular density at the left apex remains in question. Follow-up apical lordotic chest radiography or chest CT is advised for further evaluation. * SANDRA negative X3 * BNP 116 * Lipid panel: TRIG 103, CHOL 104, LDL 50, HDL 35 * HbA1C: 6.3 * F/U echocardiogram - Pending Read * Heart healthy diet * Continue home meds * Atorvastatin 20 mg PO QD * Toprol XL 25 mg PO QD * Norvasc 2.5 mg PO QD * F/U with patient pharmacy to inquire about other medications including possible blood thinners * Pharmacy # Status: Acute (2) BPH with obstruction/lower urinary tract symptoms Assessment and Plan: * Dr. Ferguson (urology) following * Continue home meds and others recs per Dr. Ferguson Status: Chronic (3) HTN (hypertension) Assessment and Plan: * continue home meds as stated above * Monitor Status: Acute (4) HLD (hyperlipidemia) Assessment and Plan: * Continue home meds as stated above * lipid panel: TRIG 103, CHOL 104, LDL 50, HDL 35 * counseled on diet to increase HDL Status: Acute (5) Valvular disease Assessment and Plan: * F/U with PMD (Dr. Hughes) to clarify this medical history Status: Acute (6) Prophylactic measure Assessment and Plan: * contraindication to DVT prophylaxis: recent bleeding * continue GI prohylaxis Status: Acute <Ana Guerrero - Last Filed: 02/16/17 16:33> Objective - Vital Signs/Intake and Output Vital Signs (last 24 hours): Temp Pulse Resp BP Pulse Ox 97.8 F 61 20 145/63 96 02/16/17 07:32 02/16/17 07:32 02/16/17 07:32 02/16/17 07:32 02/16/17 07:32 Intake and Output: 02/16/17 02/16/17 06:59 18:59 Intake Total 1350 480 Output Total 5350 1200 Balance -4000 -720 - Medications Medications: Current Medications Amlodipine Besylate (Norvasc) 2.5 mg PO DAILY [facility] Last Admin: 02/16/17 09:21 Dose: 2.5 mg Ciprofloxacin (Cipro) 500 mg PO Q12 [facility] Last Admin: 02/16/17 09:20 Dose: 500 mg Docusate Sodium (Colace) 100 mg PO TID [facility] Last Admin: 02/16/17 14:34 Dose: 100 mg Doxycycline Hyclate (Doryx) 100 mg PO Q12H [facility] Last Admin: 02/16/17 06:00 Dose: 100 mg Gentamicin Sulfate 80 mg/ (Sodium Chloride) 102 mls @ 100 mls/hr IVPB Q24H [facility] Last Admin: 02/15/17 17:59 Dose: 100 mls/hr Ketorolac Tromethamine (Toradol) 15 mg IVP Q6 PRN PRN Reason: Pain, moderate (4-7) Last Admin: 02/14/17 18:16 Dose: 15 mg Metoprolol Succinate (Toprol Xl) 25 mg PO DAILY [facility] Last Admin: 02/16/17 09:21 Dose: 25 mg Oxybutynin Chloride (Ditropan Tab) 5 mg PO TID [facility] Last Admin: 02/16/17 14:34 Dose: 5 mg Pantoprazole Sodium (Protonix Ec Tab) 20 mg PO DAILY [facility] Last Admin: 02/16/17 09:21 Dose: 20 mg Phenazopyridine HCl (Pyridium) 200 mg PO TIDPC [facility] Last Admin: 02/16/17 14:30 Dose: 200 mg Polyethylene Glycol (Miralax) 17 gm PO DAILY [facility] Last Admin: 02/16/17 09:20 Dose: 17 gm Ranolazine (Ranexa) 500 mg PO BID [facility] Last Admin: 02/16/17 09:25 Dose: 500 mg Rosuvastatin Calcium (Crestor) 10 mg PO HS [facility] Last Admin: 02/15/17 21:39 Dose: 10 mg - Labs Labs: 02/16/17 11:36 02/16/17 11:36 Attending/Attestation - Attestation I have personally seen and examined this patient.: Yes I have fully participated in the care of the patient.: Yes I have reviewed all pertinent clinical information, including history, physical exam and plan: Yes Notes (Text): Patient was seen and examined.No complain,sitting comfortable. d/w patient about pending Echo report and cardio recommendation seen by cardio recommending stress test after addressed we will follo cardio and urology I garee with the residents notes
[2017-02-16] MEDS: POLYETHYLENE GLYCOL 3350 17 GM/Dose PACKET PO SCH (09:20)
[2017-02-16] MEDS: Pantoprazole 20 mg EC Tab PO SCH (09:21)
[2017-02-16] MEDS: Metoprolol Succinate 25 mg XL Tab PO SCH (09:21)
[2017-02-16] MEDS: Ranolazine 500 mg Extended Release Tablets PO SCH ×2 (09:25→17:16)
[2017-02-16 11:39] LABS: BASO % 0.8 % (0.0-2.0); EOS # 0.3 K/uL (0.0-0.7); EOS % 6.1 % (0.0-4.0); HEMATOCRIT 42.3 % (35.0-51.0); LYMPH # 1.3 K/uL (1.0-4.3); LYMPH % 27.6 % (20.0-40.0); MEAN CELL VOLUME 84.4 fL (80.0-94.0); MEAN CORPUSCULAR HEMOGLOBIN 28.5 pg (27.0-31.0); MEAN CORPUSCULAR HGB CONC 33.8 g/dL (33.0-37.0); MEAN PLATELET VOLUME 7.4 fL (7.2-11.7); MONO # 0.6 K/uL (0.0-0.8); MONO % 11.6 % (0.0-10.0); RED CELL DISTRIBUTION WIDTH 13.5 % (11.5-14.5); WHITE BLOOD COUNT 4.7 K/uL (4.8-10.8)
[2017-02-16 11:56] LABS: ALB/GLOB RATIO 0.9 (1.0-2.1); ALKALINE PHOSPHATASE 78 U/L (38-126); ALT/SGPT 36 U/L (21-72); AST/SGOT 26 U/L (17-59); BILIRUBIN,TOTAL 0.6 mg/dL (0.2-1.3); BLOOD UREA NITROGEN 15 mg/dL (9-20); CALCIUM 8.5 mg/dl (8.6-10.4); CARBON DIOXIDE 29 mmol/L (22-30); CHLORIDE 98 mmol/L (98-107); GFR AFRICAN-AMERICAN > 60; GLUCOSE,RANDOM 93 mg/dL (75-110); MAGNESIUM 1.7 mg/dL (1.6-2.3); PHOSPHOROUS 3.3 mg/dL (2.5-4.5); POTASSIUM 4.2 mmol/L (3.6-5.2); SODIUM 134 mmol/L (132-148); TOTAL PROTEIN 7.5 g/dL (6.3-8.3)
--- NOTE | 2017-02-17 03:03 | CP.PCM.PN ---
<Olivia Alamo - Last Filed: 02/17/17 03:00> Subjective - Date & Time of Evaluation Date of Evaluation: 02/17/17 Time of Evaluation: 03:01 - Subjective Subjective: Patient seen and examined at bedside. Patient resting comfortably in bed with new complaints at this time. Patient denies any chest pain fever, chills, SOB, N &V, diarrhea, constipation, calf pain, and LE swelling. Objective - Vital Signs/Intake and Output Vital Signs (last 24 hours): Temp Pulse Resp BP Pulse Ox 98.4 F 68 20 146/78 96 02/17/17 00:00 02/17/17 00:00 02/17/17 00:00 02/17/17 00:00 02/17/17 00:00 Intake and Output: 02/16/17 02/17/17 18:59 06:59 Intake Total 480 500 Output Total 1200 1900 Balance -720 -1400 - Medications Medications: Current Medications Amlodipine Besylate (Norvasc) 2.5 mg PO DAILY [facility] Last Admin: 02/16/17 09:21 Dose: 2.5 mg Ciprofloxacin (Cipro) 500 mg PO Q12 [facility] Last Admin: 02/16/17 21:55 Dose: 500 mg Docusate Sodium (Colace) 100 mg PO TID [facility] Last Admin: 02/16/17 17:16 Dose: 100 mg Doxycycline Hyclate (Doryx) 100 mg PO Q12H [facility] Last Admin: 02/16/17 17:16 Dose: 100 mg Gentamicin Sulfate 80 mg/ (Sodium Chloride) 102 mls @ 100 mls/hr IVPB Q24H [facility] Last Admin: 02/16/17 17:16 Dose: 100 mls/hr Ketorolac Tromethamine (Toradol) 15 mg IVP Q6 PRN PRN Reason: Pain, moderate (4-7) Last Admin: 02/14/17 18:16 Dose: 15 mg Metoprolol Succinate (Toprol Xl) 25 mg PO DAILY [facility] Last Admin: 02/16/17 09:21 Dose: 25 mg Oxybutynin Chloride (Ditropan Tab) 5 mg PO TID [facility] Last Admin: 02/16/17 17:16 Dose: 5 mg Pantoprazole Sodium (Protonix Ec Tab) 20 mg PO DAILY [facility] Last Admin: 02/16/17 09:21 Dose: 20 mg Phenazopyridine HCl (Pyridium) 200 mg PO TIDPC [facility] Last Admin: 02/16/17 17:16 Dose: 200 mg Polyethylene Glycol (Miralax) 17 gm PO DAILY [facility] Last Admin: 02/16/17 09:20 Dose: 17 gm Ranolazine (Ranexa) 500 mg PO BID [facility] Last Admin: 02/16/17 17:16 Dose: 500 mg Rosuvastatin Calcium (Crestor) 10 mg PO HS [facility] Last Admin: 02/16/17 21:55 Dose: 10 mg - Labs Labs: 02/16/17 11:36 02/16/17 11:36 - Additional Findings Additional findings: - Constitutional Appears: Non-toxic, No Acute Distress, Younger Than Stated Age - Head Exam Head Exam: ATRAUMATIC, NORMAL INSPECTION, NORMOCEPHALIC - Eye Exam Eye Exam: EOMI, Normal appearance - ENT Exam ENT Exam: Mucous Membranes Moist - Respiratory Exam Respiratory Exam: Clear to Auscultation Bilateral, NORMAL BREATHING PATTERN. absent: Accessory Muscle Use, Rales, Rhonchi, Wheezes, Respiratory Distress - Cardiovascular Exam Cardiovascular Exam: RRR, +S1, +S2. absent: Bradycardia, Tachycardia, Diastolic murmur, Gallop, Rubs, Systolic Murmur - GI/Abdominal Exam GI & Abdominal Exam: Distended, Normal Bowel Sounds, Soft. absent: Guarding, Tenderness - Extremities Exam Extremities exam: Positive for: normal inspection. Negative for: calf tenderness, pedal edema - Neurological Exam Neurological exam: Alert, Oriented x3 - Psychiatric Exam Psychiatric exam: Normal Affect, Normal Mood - Skin Skin Exam: Dry, Intact, Normal Color, Warm Assessment and Plan - Assessment and Plan (Free Text) Assessment: (1) Chest pain Status: Stable (2) BPH with obstruction/lower urinary tract symptoms Status: Stable (3) HTN (hypertension) Status: Chronic (4) HLD (hyperlipidemia) Status: Chronic (5) Valvular disease Status: Acute (6) Prophylactic measure Status: Acute Plan: (1) Chest pain Assessment and Plan: * Dr. Dowd (cardio) consulted - recs appreciated * Dr. Duff/Dr. Pena have both seen patient in the past * EKG: right BBB, otherwise normal EKG * CXR: No acute infiltrate or pleural effusion identified bilaterally. Nodular density at the left apex remains in question. Follow-up apical lordotic chest radiography or chest CT is advised for further evaluation. * SANDRA negative X3 * BNP 116 * Lipid panel: TRIG 103, CHOL 104, LDL 50, HDL 35 * HbA1C: 6.3 * F/U echocardiogram - Pending Read * Heart healthy diet * Continue home meds * Atorvastatin 20 mg PO QD * Toprol XL 25 mg PO QD * Norvasc 2.5 mg PO QD * F/U with patient pharmacy to inquire about other medications including possible blood thinners * Pharmacy # Status: Acute (2) BPH with obstruction/lower urinary tract symptoms Assessment and Plan: * Dr. Ferguson (urology) following * Continue home meds and others recs per Dr. Ferguson Status: Chronic (3) HTN (hypertension) Assessment and Plan: * continue home meds as stated above * Monitor Status: Acute (4) HLD (hyperlipidemia) Assessment and Plan: * Continue home meds as stated above * lipid panel: TRIG 103, CHOL 104, LDL 50, HDL 35 * counseled on diet to increase HDL Status: Acute (5) Valvular disease Assessment and Plan: * F/U with PMD (Dr. Hughes) to clarify this medical history Status: Acute (6) Prophylactic measure Assessment and Plan: * contraindication to DVT prophylaxis: recent bleeding * continue GI prohylaxis Status: Acute <Amy Rodriguez V - Last Filed: 02/17/17 09:49> Objective - Vital Signs/Intake and Output Vital Signs (last 24 hours): Temp Pulse Resp BP Pulse Ox 98.5 F 61 20 139/75 95 02/17/17 07:56 02/17/17 07:56 02/17/17 07:56 02/17/17 07:56 02/17/17 07:56 Intake and Output: 02/17/17 02/17/17 06:59 18:59 Intake Total 500 Output Total 3400 Balance -2900 - Medications Medications: Current Medications Amlodipine Besylate (Norvasc) 2.5 mg PO DAILY [facility] Last Admin: 02/17/17 09:14 Dose: 2.5 mg Bisacodyl (Dulcolax) 5 mg PO ONCE ONE Stop: 02/17/17 09:38 Ciprofloxacin (Cipro) 500 mg PO Q12 [facility] Last Admin: 02/17/17 09:14 Dose: 500 mg Docusate Sodium (Colace) 100 mg PO TID [facility] Last Admin: 02/17/17 09:14 Dose: 100 mg Doxycycline Hyclate (Doryx) 100 mg PO Q12H [facility] Last Admin: 02/17/17 05:15 Dose: 100 mg Gentamicin Sulfate 80 mg/ (Sodium Chloride) 102 mls @ 100 mls/hr IVPB Q24H [facility] Last Admin: 02/16/17 17:16 Dose: 100 mls/hr Ketorolac Tromethamine (Toradol) 15 mg IVP Q6 PRN PRN Reason: Pain, moderate (4-7) Last Admin: 02/14/17 18:16 Dose: 15 mg Metoprolol Succinate (Toprol Xl) 25 mg PO DAILY [facility] Last Admin: 02/17/17 09:14 Dose: 25 mg Oxybutynin Chloride (Ditropan Tab) 5 mg PO TID [facility] [place] Last Admin: 02/17/17 09:24 Dose: 5 mg Pantoprazole Sodium (Protonix Ec Tab) 20 mg PO DAILY [facility] Last Admin: 02/17/17 09:14 Dose: 20 mg Phenazopyridine HCl (Pyridium) 200 mg PO TIDPC [facility] Last Admin: 02/17/17 09:14 Dose: 200 mg Polyethylene Glycol (Miralax) 17 gm PO DAILY [facility] Last Admin: 02/17/17 09:14 Dose: 17 gm Ranolazine (Ranexa) 500 mg PO BID [facility] Last Admin: 02/17/17 09:14 Dose: 500 mg Rosuvastatin Calcium (Crestor) 10 mg PO HS [facility] Last Admin: 02/16/17 21:55 Dose: 10 mg - Labs Labs: 02/17/17 07:42 02/17/17 07:42 Attending/Attestation - Attestation I have personally seen and examined this patient.: Yes I have fully participated in the care of the patient.: Yes I have reviewed all pertinent clinical information, including history, physical exam and plan: Yes Notes (Text): Medicine on consult for medical management Patient seen, examined, and case discussed with day-time resident. Patient denies chest pain, denies palpitations, reports he had has bowel movement yesterday X1, has not had a bowel movement this morning, no diarrhea, and had Hall. Patient has completed echocardiogram awaiting report. Will need to follow-up with urology to see if issues have resolved to permit for Lexiscan stress test. patient started on gentle IV hydration. Patient has not had a bowel movement today; has one BM yesterday is on stool softeners and Miralax. Ordered for one dose of Ducolax. Assessment/Plan (1) Chest pain Assessment and Plan: * Dr. Dowd (cardio) consulted - recs appreciated * Dr. Duff/Dr. Pena have both seen patient in the past * Recommended for Lexiscan when issues have resolved * Echocardiogram pending read * EKG: right BBBB, no prior EKG to compare to * CXR: : No acute infiltrate or pleural effusion identified bilaterally. Nodular density at the left apex remains in question. Follow-up apical lordotic chest radiography or chest CT is advised for further evaluation. * SANDRA X3: negative * BNP: 116 * Lipid panel: TRIG 103, CHOL 104, LDL 50, HDL 35-->will need OTC omega 3 Fa to bring up HDL * Hgca1c: 6.3--->will need a repeat in 3-4 months to prevent overt diabetes * F/U echocardiogram--Pending read * Heart healthy diet * Continue home meds * Atorvastatin 20 mg PO Qdaily-->Switched to Crestor due to hospital availability * Toprol XL 25 mg PO QDaily * Norvasc 2.5 mg PO QDaily * F/U with patient pharmacy to inquire about other medications including possible blood thinners * Pharmacy # Status: Acute (2) BPH with obstruction/lower urinary tract symptoms Assessment and Plan: * Dr. Ferguson (urology) following * Continue home meds and others recs per Dr. Ferguson * CT Abdomen/Pelvis (02/14/17): a distendned but smooth/denton walled urinary bladder is identified in pelvis. Punctate intrarenal calculi identified at the upper pole left kdiney with similar focus at the uppe rpole right kidney versus vascular calcification. No obstructive uropathy bilaterally. No pericystic reaction or fluid collection identified. right colonic diverticular changes without diverticulitis. Mildly prominent fecal loading seen throught the more majority of colon. A iny luceny seen at the right lobe liver too small to characterize. Lack of IV contrast. Enlarged prostate gland. * Management per urology * s/p hall insertion 02/15 Status: Chronic (3) HTN (hypertension) Assessment and Plan: * Toprol XL 25 mg PO QDaily * Norvasc 2.5 mg PO QDaily Status: Chronic (4) HLD (hyperlipidemia) Assessment and Plan: * Continue home meds as stated above * Lipid panel: TRIG 103, CHOL 104, LDL 50, HDL 35-->will need OTC omega 3 Fa to bring up HDL * Atorvastatin 20 mg PO Qdaily-->Switched to Crestor due to hospital availability Status: Acute (5) Valvular disease Assessment and Plan: * F/U with PMD (Dr. Hughes) to clarify this medical history * Pending echocardiogram Status: Acute (6) Constipation * On colace 100mg PO Tid * On miralax daily * f/u bowel movement * CT Abdomen/Pelvis (02/14/17): a distendned but smooth/denton walled urinary bladder is identified in pelvis. Punctate intrarenal calculi identified at the upper pole left kdiney with similar focus at the uppe rpole right kidney versus vascular calcification. No obstructive uropathy bilaterally. No pericystic reaction or fluid collection identified. right colonic diverticular changes without diverticulitis. Mildly prominent fecal loading seen throught the more majority of colon. A iny luceny seen at the right lobe liver too small to characterize. Lack of IV contrast. Enlarged prostate gland. Status: Acute (7) Prophylactic measure Assessment and Plan: * contraindication to DVT prophylaxis: recent bleeding * continue GI prohylaxis Status: Acute
--- NOTE | 2017-02-17 05:01 | PCM.URO ---
Urology Progress Note - Objective Lab Results Last 24 Hours: Laboratory Results - last 24 hr 02/16/17 02/16/17 11:36 11:36 WBC 4.7 L RBC 5.01 Hgb 14.3 Hct 42.3 MCV 84.4 MCH 28.5 MCHC 33.8 RDW 13.5 Plt Count 267 MPV 7.4 Neut % (Auto) 53.9 Lymph % (Auto) 27.6 [place] % (Auto) 11.6 H Eos % (Auto) 6.1 H Baso % (Auto) 0.8 Neut # 2.5 Lymph # 1.3 [place] # 0.6 Eos # 0.3 Baso # 0.0 Sodium 134 Potassium 4.2 Chloride 98 Carbon Dioxide 29 Anion Gap 12 BUN 15 Creatinine 1.2 Est GFR ( Amer) > 60 Est GFR (Non-Af Amer) 58 Random Glucose 93 Calcium 8.5 L Phosphorus 3.3 Magnesium 1.7 Total Bilirubin 0.6 AST 26 ALT 36 Alkaline Phosphatase 78 Total Protein 7.5 Albumin 3.6 Globulin 3.8 Albumin/Globulin Ratio 0.9 L Intake & Output: Intake & Output 02/16/17 02/16/17 02/17/17 06:59 18:59 06:59 Intake Total 1350 480 500 Output Total 5350 1200 1900 Balance -4000 -720 -1400 Intake: Intake, IV Amount 100 100 Right Hand 100 100 Oral 1250 480 400 Output: Urine 5350 1200 1900 Urethral ([place]le[place]) 1600 1200 1900 Urine, Voided 3750 Other: # Bowel Movements 0 0 Vital Signs: Vital Signs - 24 hr 02/16/17 02/16/17 02/17/17 07:32 16:44 00:00 Temperature 97.8 F 98.3 F 98.4 F Pulse Rate 61 75 68 Respiratory 20 20 20 Rate Blood Pressure 145/63 132/76 146/78 O2 Sat by Pulse 96 95 96 Oximetry
[2017-02-17 08:03] LABS: BASO % 0.8 % (0.0-2.0); EOS # 0.3 K/uL (0.0-0.7); HEMATOCRIT 42.1 % (35.0-51.0); LYMPH # 1.7 K/uL (1.0-4.3); LYMPH % 27.6 % (20.0-40.0); MEAN CELL VOLUME 84.4 fL (80.0-94.0); MEAN CORPUSCULAR HEMOGLOBIN 28.5 pg (27.0-31.0); MEAN CORPUSCULAR HGB CONC 33.8 g/dL (33.0-37.0); MEAN PLATELET VOLUME 7.6 fL (7.2-11.7); MONO # 0.7 K/uL (0.0-0.8); MONO % 10.8 % (0.0-10.0); RED CELL DISTRIBUTION WIDTH 13.4 % (11.5-14.5); WHITE BLOOD COUNT 6.2 K/uL (4.8-10.8)
[2017-02-17 08:25] LABS: ALB/GLOB RATIO 1.4 (1.0-2.1); ALKALINE PHOSPHATASE 81 U/L (38-126); ALT/SGPT 34 U/L (21-72); AST/SGOT 24 U/L (17-59); BILIRUBIN,TOTAL 0.8 mg/dL (0.2-1.3); BLOOD UREA NITROGEN 16 mg/dL (9-20); CALCIUM 8.3 mg/dl (8.6-10.4); CARBON DIOXIDE 28 mmol/L (22-30); CHLORIDE 99 mmol/L (98-107); GFR AFRICAN-AMERICAN > 60; GLUCOSE,RANDOM 84 mg/dL (75-110); MAGNESIUM 1.7 mg/dL (1.6-2.3); PHOSPHOROUS 3.5 mg/dL (2.5-4.5); POTASSIUM 3.9 mmol/L (3.6-5.2); SODIUM 134 mmol/L (132-148); TOTAL PROTEIN 5.9 g/dL (6.3-8.3)
[2017-02-17] MEDS: Pantoprazole 20 mg EC Tab PO SCH (09:14)
[2017-02-17] MEDS: Ranolazine 500 mg Extended Release Tablets PO SCH ×2 (09:14→17:06)
[2017-02-17] MEDS: POLYETHYLENE GLYCOL 3350 17 GM/Dose PACKET PO SCH (09:14)
[2017-02-17] MEDS: Metoprolol Succinate 25 mg XL Tab PO SCH (09:14)
[2017-02-17] MEDS: Sodium Chloride 0.9% 1,000 ML IV SCH (09:59)
[2017-02-17] MEDS ORDERED: Bisacodyl 5mg EC Tab PO ONE (10:00)
--- NOTE | 2017-02-17 13:33 | CARD ---
APPROVED REPORT EXAM: Two-dimensional and M-mode echocardiogram with Doppler and color Doppler. Other Information Quality : [employer] : INDICATION Chest Pain RISK FACTORS Hypertension Hyperlipidemia 2D DIMENSIONS IVSd1.3 (0.7-1.1cm)LVDd4.6 (3.9-5.9cm) PWd1.4 (0.7-1.1cm)LVDs2.8 (2.5-4.0cm) FS (%) 39.2 %LVEF (%)69.7 (>50%) M-Mode DIMENSIONS RVDd2.29 (2.1-3.2cm)Left Atrium (MM)3.21 (2.5-4.0cm) IVSd1.04 (0.7-1.1cm)Aortic Root2.66 (2.2-3.7cm) LVDd5.24 (4.0-5.6cm)Aortic Cusp Exc.1.91 (1.5-2.0cm) PWd1.08 (0.7-1.1cm)FS (%) 45 % LVDs2.88 (2.0-3.8cm)LVEF (%)76 (>50%) Mitral Valve MV E Woicgrss93.4cm/sMV A Eujhbads38.8cm/sE/A ratio0.7 TDI E/Lateral E'0.0E/Medial E'0.0 Tricuspid Valve TR Peak [id number]/sTR Peak Gr.[id number] LEFT VENTRICLE The left ventricle is normal size. There is borderline to mild concentric left ventricular hypertrophy. The left ventricular function is normal. The left ventricular ejection fraction is within the normal range. No regional wall motion abnormalities noted. Transmitral Doppler flow pattern is Grade I-abnormal relaxation pattern. No left ventricle thrombus noted on this study. There is no ventricular septal defect visualized. There is no left ventricular aneurysm. There is no mass noted in the left ventricle. RIGHT VENTRICLE The right ventricle is normal size. There is normal right ventricular wall thickness. The right ventricular systolic function is normal. ATRIA The left atrium size is normal. The right atrium size is normal. The interatrial septum is intact with no evidence for an atrial septal defect. AORTIC VALVE The aortic valve is mildly sclerotic. No aortic regurgitation is present. There is no aortic valvular stenosis. There is no aortic valvular vegetation. MITRAL VALVE The mitral valve is normal in structure and function. There is no evidence of mitral valve prolapse. There is no mitral valve stenosis. There is no mitral valve regurgitation noted. TRICUSPID VALVE The tricuspid valve is normal in structure and function. There is trace tricuspid regurgitation. There is no tricuspid valve prolapse or vegetation. There is no tricuspid valve stenosis. PULMONIC VALVE The pulmonary valve is normal in structure and function. There is mild pulmonic valvular regurgitation. There is no pulmonic valvular stenosis. GREAT VESSELS The aortic root is normal in size. The ascending aorta is normal in size. The pulmonary artery is normal. The IVC is normal in size and collapses >50% with inspiration. PERICARDIAL EFFUSION The pericardium appears normal. There is no pleural effusion. <Conclusion> There is borderline to mild concentric left ventricular hypertrophy. Transmitral Doppler flow pattern is Grade I-abnormal relaxation pattern. The aortic valve is mildly sclerotic. There is trace tricuspid regurgitation. There is mild pulmonic valvular regurgitation. The left ventricular function is normal.
--- NOTE | 2017-02-17 19:01 | PN ---
DATE: 02/12/2017 See the previously dictated history and physical, consult notes, and daily progress notes. The patient had a Olea catheter removed, and we were observing his urinary habits. He is still having complaints, but they are much better, he says, without the catheter. See the plans as well. PAST MEDICAL AND SURGICAL HISTORY: No changes. PHYSICAL EXAMINATION: The abdomen is belted, so it is difficult to evaluate for distention. DIAGNOSES: Urinary tract infection and voiding dysfunction. PLAN: We are going to continue to gauge him without a Olea catheter. Continue with Flomax, antibiotics, and then further plans will follow. I discussed the option. We said he cannot possibly go home, feeling like he barely is able, he is not walking well, he is not eating well, he has poor appetite, and he lives alone. So at this point, we are going to continue to observe the patient in the hospital. If necessary, we will need to consider getting a bladder scan or an ultrasound or CT scan whatever is needed. In the meantime, we will continue the current plan. Jt Ferguson MD
--- NOTE | 2017-02-17 19:08 | PN ---
DATE: 02/13/2017 UROLOGY DAILY PROGRESS NOTE See many other progress notes. SUBJECTIVE: The patient is resting comfortably. See the plans listed below. He is saying that he is still getting spasms, is not voiding well. He feels like he cannot empty is bladder well. . The physical exam remains difficult to evaluate for abdominal distention. The remainder of the exam of this patient is unremarkable physical exam. DIAGNOSES: Voiding dysfunction, decreased flow stream, obstructive and irritative complaints. At this point, I think the patient maybe having retention. We are going to plan for an ultrasound and for a CT scan. Most of the worries are about his bowel movements. Again the procedures went relatively uncomplicated, but the patient had failure to progress. PLAN: So at this point, his plan as follows: We are going to order a CT scan and then further plans will follow. May give an addendum to this note. We explained all this to the patient in detail. We did a CT scan. The patient is basically looks like he did have retention, there is no other abnormality. There was no rectal specific issues. So, the plan is to insert a Olea catheter and see how the patient does and the nurse is able to insert Olea catheter without difficulty with a long residual above 250 mL, and the patient is doing better. I had been in touch with the patient by communication by texting, and he tells me he is doing better. Jt Ferguson MD
--- NOTE | 2017-02-17 19:50 | PN ---
DATE: 02/17/2017 See the many previously dictated notes. . SUBJECTIVE: Multiple consults are seeing the patient at this point. And also his cardiac workup going on. From urology standpoint, he is now much happy with the Olea catheter in place. And we are going to continue to monitor the patient with the Olea catheter. PAST MEDICAL AND SURGICAL HISTORY: Otherwise no changes. Cardiac workup at this time is getting some kind of scan from his cardiovascular workup. So, from urology standpoint, urinary retention. We are going to maintain the patient with the Olea catheter. Again, we are not going to give him a voiding trial. I discussed with the patient the options of going home, which he feels as if he just does not feel comfortable yet. I will get him social insurance analyst arrange for a visiting nurse. The patient is going to get it tomorrow. From a urology standpoint, no discharge at this point as the patient really feels comfortable. We are going to get social insurance analyst seeing the patient to see if we can arrange for a visiting nurse. Any further plans will follow. Jt Ferguson MD
[2017-02-18] MEDS: Sodium Chloride 0.9% 1,000 ML IV SCH (00:33)
--- NOTE | 2017-02-18 07:32 | PN ---
DATE: UROLOGY PROGRESS NOTE See the previously dictated history and physical and other consult notes. SUBJECTIVE: Patient is currently resting comfortably. He is having again spasms in his bladder. He has had a bowel movement at this point. See the plans listed below. We are going to give him a voiding trial. PAST MEDICAL AND SURGICAL HISTORY: No other changes. PHYSICAL EXAMINATION: ABDOMEN: Relatively soft. DIAGNOSES: Urinary retention and voiding dysfunction. Labs noted. PLAN: As follows: Getting the patient a voiding trial to see how he does. Explained the patient that we would may be want him in his Olea catheter, but he has really asked if we could take it out, so we will make further plans. Jt Ferguson MD
--- NOTE | 2017-02-18 07:32 | HP ---
UROLOGY ADMISSION HISTORY AND PHYSICAL REASON FOR ADMISSION: Urinary retention. HISTORY OF PRESENT ILLNESS: Mr. Millan is a very pleasant gentleman who has voiding dysfunction, irritative and obstructive urinary complaints, decreased flow stream, nocturia, frequency every hour. He has no gross hematuria. Until recently when he developed gross hematuria, he also has microscopic hematuria. PSA is noted. He is an 81-year-old gentleman. We discussed options with the patient. On 02/08/2017, he underwent an microwave thermal therapy for the prostate. That was an uncomplicated procedure. Postop, the patient with Olea catheter. He was home with Olea catheter until today when he reported that he was having a lot of problems with pain and discomfort. We asked him to come over to the ER and upon presentation to the ER, the patient was very uncomfortable. In fact, he wanted the catheter out. We planned this well, although we would not recommend this yet. The patient denies any fever. He is just very uncomfortable and having a lot of spasms. In fact, bladder spasms and cramping . PAST MEDICAL AND SURGICAL HISTORY: As listed on the chart . MEDICATIONS: See chart. ALLERGIES: NONE. REVIEW OF SYSTEMS: As above. 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 Nonsmoker. PHYSICAL EXAMINATION: GENERAL: A well-nourished male, in no apparent distress. VITAL SIGNS: Within normal limits. ABDOMEN: Overall soft. Olea catheter in place. Blood noted in his urine. See plan as listed below. LABORATORY DATA: See chart. DIAGNOSES: Urinary retention, voiding dysfunction, irritative and obstructive . Now, he is developing bladder spasms biopsy. He reports that he has had a bowel movement today. The patient is a very pleasant gentleman, he is 81 years old. He has significant voiding dysfunction. We did a microwave thermotherapy. PLAN: As follows: 1. Admission to the hospital. 2. Obtain routine set of labs. 3. Antibiotics. 4. We will consider increasing Flomax. Jt Ferguson MD
[2017-02-18] MEDS ORDERED: Aminophylline 25 mg/ml Inj ONE (07:47)
[2017-02-18] MEDS: POLYETHYLENE GLYCOL 3350 17 GM/Dose PACKET PO SCH (10:36)
[2017-02-18] MEDS: Pantoprazole 20 mg EC Tab PO SCH (10:37)
[2017-02-18] MEDS: Metoprolol Succinate 25 mg XL Tab PO SCH (10:38)
[2017-02-18] MEDS: Ranolazine 500 mg Extended Release Tablets PO SCH ×2 (10:38→17:40)
--- NOTE | 2017-02-18 13:30 | CP.PCM.PN ---
Subjective - Date & Time of Evaluation Date of Evaluation: 02/18/17 Time of Evaluation: 08:30 - Subjective Subjective: Patient was seen and examined at bedside. Patient was resting comfortably in bed and reports that he is doing well and has no complaints. Patient denies chest pain, palpitations, SOB, dizziness, fever, chills, flank pain, suprapubic pressure. Patient was taken for a lexiscan test today, but patient refused as he wants to follow up with his director of respiratory therapy outpatient. Objective - Vital Signs/Intake and Output Vital Signs (last 24 hours): Temp Pulse Resp BP Pulse Ox 98.3 F 63 20 127/72 95 02/18/17 09:30 02/18/17 09:30 02/18/17 09:30 02/18/17 09:30 02/18/17 09:30 Intake and Output: 02/18/17 02/18/17 06:59 18:59 Intake Total 1050 Output Total 2000 Balance -950 - Medications Medications: Current Medications Amlodipine Besylate (Norvasc) 2.5 mg PO DAILY COUNTS INCLUDE 234 BEDS AT THE [facility] Last Admin: 02/18/17 10:38 Dose: 2.5 mg Ciprofloxacin (Cipro) 500 mg PO Q12 COUNTS INCLUDE 234 BEDS AT THE [facility] Last Admin: 02/18/17 10:38 Dose: 500 mg Docusate Sodium (Colace) 100 mg PO TID COUNTS INCLUDE 234 BEDS AT THE [facility] Last Admin: 02/18/17 10:38 Dose: 100 mg Doxycycline Hyclate (Doryx) 100 mg PO Q12H COUNTS INCLUDE 234 BEDS AT THE [facility] Last Admin: 02/18/17 06:00 Dose: 100 mg Sodium Chloride (Sodium Chloride 0.9%) 1,000 mls @ 75 mls/hr IV .[id number] COUNTS INCLUDE 234 BEDS AT THE [facility] Last Admin: 02/18/17 00:33 Dose: Not Given Metoprolol Succinate (Toprol Xl) 25 mg PO DAILY COUNTS INCLUDE 234 BEDS AT THE [facility] Last Admin: 02/18/17 10:38 Dose: 25 mg Oxybutynin Chloride (Ditropan Tab) 5 mg PO TID COUNTS INCLUDE 234 BEDS AT THE [facility] Last Admin: 02/18/17 10:37 Dose: 5 mg Pantoprazole Sodium (Protonix Ec Tab) 20 mg PO DAILY COUNTS INCLUDE 234 BEDS AT THE [facility] Last Admin: 02/18/17 10:37 Dose: 20 mg Phenazopyridine HCl (Pyridium) 200 mg PO TIDPC COUNTS INCLUDE 234 BEDS AT THE [facility] Last Admin: 02/18/17 10:37 Dose: 200 mg Polyethylene Glycol (Miralax) 17 gm PO DAILY COUNTS INCLUDE 234 BEDS AT THE [facility] Last Admin: 02/18/17 10:36 Dose: 17 gm Ranolazine (Ranexa) 500 mg PO BID COUNTS INCLUDE 234 BEDS AT THE [facility] Last Admin: 02/18/17 10:38 Dose: 500 mg Rosuvastatin Calcium (Crestor) 10 mg PO HS COUNTS INCLUDE 234 BEDS AT THE [facility] Last Admin: 02/17/17 21:06 Dose: 10 mg - Labs Labs: 02/17/17 07:42 02/17/17 07:42 - Constitutional Appears: Well, No Acute Distress - Head Exam Head Exam: ATRAUMATIC, NORMAL INSPECTION - Eye Exam Eye Exam: EOMI, Normal appearance - ENT Exam ENT Exam: Mucous Membranes Moist - Respiratory Exam Respiratory Exam: Clear to Ausculation Bilateral, NORMAL BREATHING PATTERN - Cardiovascular Exam Cardiovascular Exam: REGULAR RHYTHM, +S1, +S2. absent: Gallop, Murmur - GI/Abdominal Exam GI & Abdominal Exam: Soft, Normal Bowel Sounds. absent: Distended, Guarding (f) , Rigid - Extremities Exam Extremities Exam: Normal Inspection. absent: Calf Tenderness, Pedal Edema - Back Exam Back Exam: absent: CVA tenderness (L), CVA tenderness (R) - Neurological Exam Neurological Exam: Alert, Awake, Oriented x3 - Psychiatric Exam Psychiatric exam: Normal Affect, Normal Mood - Skin Skin Exam: Normal Color Assessment and Plan (1) Chest pain Assessment & Plan: R/O [place] Dr. Dowd (cardiology) consulted * Management as per recommendation * Dr. Duff/Dr. Pena have both seen patient in the past * Will f/u outpatient for cardiac stress test Imaging: * EKG: right BBB, otherwise normal EKG * CXR (02/14/17): No acute infiltrate or pleural effusion identified bilaterally. Nodular density at the left apex remains in question. Follow-up apical lordotic chest radiography or chest CT is advised for further evaluation. 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 Ferguson * Management as per recommendation * Olea catheter in place Medications: Oxybutynin 5mg PO TID pyridium 200mg PO TIDPC Cipro 500mg PO Q12H Doxycycline 100mg PO Q12H Status: Chronic (3) Constipation Assessment & Plan: Medications: * Colace 100mg PO TID * Miralax 17gm PO daily Status: Acute (4) Glucose intolerance (impaired glucose tolerance) Assessment & Plan: Hgb A1c: 6.3 Management: * Counselled on diet control and exercise Status: Acute (5) HTN (hypertension) Assessment & Plan: Stable with medication Home medication: * Norvasc 2.5mg PO daily * Toprol 25mg PO daily Status: Acute (6) HLD (hyperlipidemia) Assessment & Plan: Medication: * Crestor 10mg PO HS Status: Acute (7) Prophylactic measure Assessment & Plan: GI prophylaxis: Protonix 20mg PO daily DVT prophylaxis: contraindicated at this time due to recent bleeding Heart healthy diet Status: Acute
--- NOTE | 2017-02-19 07:56 | PCM.URO ---
Urology Progress Note - General General: Tolerating Diet. absent: No Complaints (c/o pain of lower abd and genitalia - less today) - Subjective Abdominal Pain: No Voiding Well: No Hematuria: No Dsypnea: No Chest Pain: No Fever & Chills: No - Objective Intake & Output: Intake & Output 02/18/17 02/19/17 02/19/17 18:59 06:59 18:59 Intake Total 240 300 Output Total 600 Balance -360 300 Intake: Oral 240 300 Output: Urine 600 Urethral (Olea) 600 Other: # Voids Urine, Voided 2 # Bowel Movements 1 Vital Signs: Vital Signs - 24 hr 02/18/17 02/18/17 02/19/17 09:30 16:09 00:00 Temperature 98.3 F 97.7 F 98.1 F Pulse Rate 63 71 68 Respiratory 20 20 20 Rate Blood Pressure 127/72 150/74 150/83 O2 Sat by Pulse 95 98 95 Oximetry 02/19/17 07:49 Temperature 98.2 F Pulse Rate 61 Respiratory 20 Rate Blood Pressure 129/70 O2 Sat by Pulse 96 Oximetry - Physical Exam Abdominal Exam: Soft, Non-Tender, Non-Distended Genitalia: Without Inflammation Urine Color: Clear, Yellow - Male Phallus: Normal Scrotum: Normal - Plan Additional Information: imp: improved overall. P: trial of voiding. Discussed w pt. Discussed w nursing staff - Date & Time of Note Date: 02/18/17 Time: 11:00
--- NOTE | 2017-02-19 07:57 | PCM.URO ---
Urology Progress Note - General General: No Complaints - Subjective Abdominal Pain: Yes (mild) Nausea: No Vomiting: No Voiding Well: Yes Hematuria: No Dsypnea: No Chest Pain: No Fever & Chills: No - Objective Intake & Output: Intake & Output 02/18/17 02/19/17 02/19/17 18:59 06:59 18:59 Intake Total 240 300 Output Total 600 Balance -360 300 Intake: Oral 240 300 Output: Urine 600 Urethral (Olea) 600 Other: # Voids Urine, Voided 2 # Bowel Movements 1 Vital Signs: Vital Signs - 24 hr 02/18/17 02/18/17 02/19/17 09:30 16:09 00:00 Temperature 98.3 F 97.7 F 98.1 F Pulse Rate 63 71 68 Respiratory 20 20 20 Rate Blood Pressure 127/72 150/74 150/83 O2 Sat by Pulse 95 98 95 Oximetry 02/19/17 07:49 Temperature 98.2 F Pulse Rate 61 Respiratory 20 Rate Blood Pressure 129/70 O2 Sat by Pulse 96 Oximetry - Physical Exam Abdominal Exam: Soft, Non-Tender, Non-Distended Back: No CVA Tenderness Genitalia: Without Inflammation Urine Color: Clear, Yellow Extremities: Normal: Bilateral - Plan Additional Information: Imp: Doing well. Rec/plan: Home today. outpt f/u - Date & Time of Note Date: 02/19/17 Time: 07:57
[2017-02-19] MEDS: POLYETHYLENE GLYCOL 3350 17 GM/Dose PACKET PO SCH (11:04)
[2017-02-19] MEDS: Metoprolol Succinate 25 mg XL Tab PO SCH (11:05)
[2017-02-19] MEDS: Pantoprazole 20 mg EC Tab PO SCH (11:06)
[2017-02-19] MEDS: Ranolazine 500 mg Extended Release Tablets PO SCH (11:06)
--- NOTE | 2017-02-19 15:29 | CP.PCM.PN ---
Subjective - Date & Time of Evaluation Date of Evaluation: 02/19/17 Time of Evaluation: 07:05 - Subjective Subjective: Medicine Note (PGY-1)---> Dr. Hoff's service Patient was seen and examined at bedside. Patient reports that he is doing well and has no complaints. Patient denies chest pain, palpitations, SOB, dizziness, fever, chills, flank pain, suprapubic pressure. Patient is anticipating discharge today as per primary. Objective - Vital Signs/Intake and Output Vital Signs (last 24 hours): Temp Pulse Resp BP Pulse Ox 98.2 F 61 20 129/70 96 02/19/17 07:49 02/19/17 12:01 02/19/17 07:49 02/19/17 12:01 02/19/17 12:01 Intake and Output: 02/19/17 02/19/17 06:59 18:59 Intake Total 300 240 Output Total 1800 Balance -1500 240 - Medications Medications: Current Medications Amlodipine Besylate (Norvasc) 2.5 mg PO DAILY [facility] Last Admin: 02/19/17 11:05 Dose: 2.5 mg Ciprofloxacin (Cipro) 500 mg PO Q12 [facility] Last Admin: 02/19/17 11:04 Dose: 500 mg Docusate Sodium (Colace) 100 mg PO TID [facility] Last Admin: 02/19/17 13:53 Dose: 100 mg Sodium Chloride (Sodium Chloride 0.9%) 1,000 mls @ 75 mls/hr IV .[id number] [facility] Last Admin: 02/18/17 00:33 Dose: Not Given Metoprolol Succinate (Toprol Xl) 25 mg PO DAILY [facility] Last Admin: 02/19/17 11:05 Dose: 25 mg Oxybutynin Chloride (Ditropan Tab) 5 mg PO TID [facility] Last Admin: 02/19/17 13:53 Dose: 5 mg Pantoprazole Sodium (Protonix Ec Tab) 20 mg PO DAILY [facility] Last Admin: 02/19/17 11:06 Dose: 20 mg Phenazopyridine HCl (Pyridium) 200 mg PO TIDPC [facility] Last Admin: 02/19/17 13:53 Dose: 200 mg Polyethylene Glycol (Miralax) 17 gm PO DAILY [facility] Last Admin: 02/19/17 11:04 Dose: 17 gm Ranolazine (Ranexa) 500 mg PO BID [facility] Last Admin: 02/19/17 11:06 Dose: 500 mg Rosuvastatin Calcium (Crestor) 10 mg PO HS [facility] Last Admin: 02/18/17 21:37 Dose: 10 mg - Labs Labs: 02/17/17 07:42 02/17/17 07:42 - Constitutional Appears: Well, No Acute Distress - Head Exam Head Exam: ATRAUMATIC, NORMAL INSPECTION - Eye Exam Eye Exam: EOMI, Normal appearance - ENT Exam ENT Exam: Mucous Membranes Moist - Respiratory Exam Respiratory Exam: Clear to Ausculation Bilateral, NORMAL BREATHING PATTERN - Cardiovascular Exam Cardiovascular Exam: REGULAR RHYTHM, +S1, +S2, Murmur - GI/Abdominal Exam GI & Abdominal Exam: Soft, Normal Bowel Sounds - Extremities Exam Extremities Exam: Full ROM, Normal Inspection. absent: Calf Tenderness, Pedal Edema - Back Exam Back Exam: absent: CVA tenderness (L), CVA tenderness (R) - Neurological Exam Neurological Exam: Alert, Awake, Oriented x3 - Psychiatric Exam Psychiatric exam: Normal Affect - Skin Skin Exam: Normal Color Assessment and Plan (1) Chest pain Assessment & Plan: Resolved R/O [place] Dr. Dowd (cardiology) consulted * Management as per recommendation * Dr. Duff/Dr. Pena have both seen patient in the past * Will f/u outpatient for cardiac stress test Imaging: * EKG: right BBB, otherwise normal EKG * CXR (02/14/17): No acute infiltrate or pleural effusion identified bilaterally. Nodular density at the left apex remains in question. Follow-up apical lordotic chest radiography or chest CT is advised for further evaluation. 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 Ferguson * Management as per recommendation * Olea catheter discontinued * Recommendation for continual outpatient follow up Medications: Oxybutynin 5mg PO TID pyridium 200mg PO TIDPC Cipro 500mg PO Q12H Doxycycline 100mg PO Q12H Status: Chronic (3) Constipation Assessment & Plan: Resolving Medications: * Colace 100mg PO TID * Miralax 17gm PO daily Status: Acute (4) Glucose intolerance (impaired glucose tolerance) Assessment & Plan: Hgb A1c: 6.3 Management: * Counselled on diet control and exercise Status: Acute (5) HTN (hypertension) Assessment & Plan: Stable with medication Home medication: * Norvasc 2.5mg PO daily * Toprol 25mg PO daily Status: Acute (6) HLD (hyperlipidemia) Assessment & Plan: Medication: * Crestor 10mg PO HS Status: Acute (7) Prophylactic measure Assessment & Plan: GI prophylaxis: Protonix 20mg PO daily DVT prophylaxis: contraindicated at this time due to recent bleeding Heart healthy diet Anticipating discharge today as per primary team Thank you for the consultation Status: Acute
[2017-02-19 16:54] VITALS: BP 144/83; PULSE 64; TEMP 97.8; O2SAT 97
== END 2017-02-19 17:00 | disposition home or self-care (01) | DRG 726 ==
LOC: C.ER 18:37 → C.9E 21:05 → C.3T 22:12 → OBSVTOIN 02-12 21:33 → UNDODISIN 02-15 13:03 → C.3T 02-16 00:47
PROVIDERS: ADMIT Urology; ATTEND Urology
DX: N40.1 Benign prostatic hyperplasia with lower urinary tract symptoms (principal); N13.8 Other obstructive and reflux uropathy; N39.0 Urinary tract infection, site not specified; R07.9 Chest pain, unspecified; I08.2 Rheumatic disorders of both aortic and tricuspid valves; K59.00 Constipation, unspecified; R73.02 Impaired glucose tolerance (oral); I10 Essential (primary) hypertension; E78.5 Hyperlipidemia, unspecified

== ENCOUNTER 2017-03-14 17:42 | Emergency (ER) | payer MEDICARE ==
[2017-03-14 17:43] VITALS: BMI 24.3
[2017-03-14] MEDS ORDERED: Hydrocodone/Acetaminophen 5 mg /300 mg Tab PO STA (18:13)
--- NOTE | 2017-03-14 18:14 | C.PDOC ---
Chief Complaint (Nursing): Back Pain Past Medical History Vital Signs: Last Vital Signs Temp 98.4 F 03/14/17 17:51 Pulse 79 03/14/17 17:51 Resp 20 03/14/17 17:51 BP 148/75 03/14/17 17:54 Pulse Ox 98 03/14/17 17:51 - Medical History PMH: Fractures (LEFT HEEL), Gall Bladder Disease, HTN, Pneumonia (CHILDHOOD) Denies: Chronic Kidney Disease Surgical History: Cholecystectomy Family History: States: Unknown Family Hx - Social History Hx Alcohol Use: No Hx Substance Use: No ED Course And Treatment O2 Sat by Pulse Oximetry: 98 Disposition - Disposition
--- NOTE | 2017-03-14 18:17 | C.PDOC ---
History Of Present Illness 81 y/o male with history of back injury presents to ED with complaints of left sided back pain for 2 days. Patient states he was at doctors office and was sitting when he got up suddenly developed pain. Patient reports he recently had a TURP and states he has mild pain at the end of urination that was worse before surgery. Patient also complaints of weakness and denies fever, chills, hematuria, abdominal pain or any other complaints at this time. Chief Complaint (Nursing): Back Pain History Per: Patient History/Exam Limitations: no limitations Onset/Duration Of Symptoms: Days Current Symptoms Are (Timing): Still Present Quality Of Discomfort: "Pain" Past Medical History Reviewed: Historical Data, Nursing Documentation, Vital Signs Vital Signs: Last Vital Signs Temp 97.2 F L 03/14/17 19:25 Pulse 65 03/14/17 19:25 Resp 18 03/14/17 19:25 BP 134/89 03/14/17 19:25 Pulse Ox 96 03/14/17 19:25 - Medical History PMH: Fractures (LEFT HEEL), Gall Bladder Disease, HTN, Pneumonia (CHILDHOOD) Surgical History: Cholecystectomy Family History: States: No Known Family Hx - Social History Hx Alcohol Use: No Hx Substance Use: No Review Of Systems Constitutional: Negative for: Fever, Chills Respiratory: Negative for: Cough, Shortness of Breath Gastrointestinal: Negative for: Nausea, Vomiting Genitourinary: Negative for: Hematuria Musculoskeletal: Positive for: Back Pain Skin: Negative for: Rash Neurological: Positive for: Weakness. Negative for: Numbness Physical Exam - Physical Exam Appears: Non-toxic, No Acute Distress, Other (Mild discomfort) Skin: Warm, Dry, No Rash Head: Atraumatic, Normacephalic Eye(s): bilateral: Normal Inspection, PERRL, EOMI Oral Mucosa: Moist Neck: Supple Cardiovascular: Rhythm Regular Respiratory: Normal Breath Sounds, No Rales, No Rhonchi, No Wheezing Gastrointestinal/Abdominal: Soft, No Tenderness, No Guarding, No Rebound Back: No CVA Tenderness, Other (L3 point tenderness) Extremity: Normal ROM, Capillary Refill (<2 seconds) Neurological/Psych: Oriented x3 ED Course And Treatment O2 Sat by Pulse Oximetry: 98 (RA) Pulse Ox Interpretation: Normal - Other Rad lumbar spine- neg X-Ray: Interpreted by Me Interpretation: lumbar spine films- neg for fx Medical Decision Making Medical Decision Making: Upon reevaluation,pt is pain free.Xrays are neg.We will discharge on analgesics and muscle relaxants Disposition - Disposition Referrals: [facility] [Outside] Disposition: HOME/ ROUTINE Disposition Time: 19:11 Condition: GOOD Prescriptions: Acetaminophen/Hydrocodone Bi [Vicodin 300 mg-5 mg] 1 tab PO QID PRN #12 tab PRN Reason: Pain, Mild (1-3) Diazepam [Valium] 2 mg PO TID PRN #12 tablet PRN Reason: spasms Forms: [employer] ([place] Islander) - Clinical Impression Clinical Impression: Low back strain - Scribe Statement The provider has reviewed the documentation as recorded by the Scribmerary Brennan All medical record entries made by the Scribe were at my direction and personally dictated by me. I have reviewed the chart and agree that the record accurately reflects my personal performance of the history, physical exam, medical decision making, and the department course for this patient. I have also personally directed, reviewed, and agree with the discharge instructions and disposition.
[2017-03-14] MEDS ORDERED: Hydrocodone/Acetaminophen 5 mg /300 mg Tab PO ONE (18:21)
[2017-03-14 18:39] LABS: RBC URINE 1 /hpf (0-3); URINE BILIRUBIN NEGATIVE (NEGATIVE); URINE BLOOD NEGATIVE (NEGATIVE); URINE COLOR Yellow (YELLOW); URINE GLUCOSE (UA) NORMAL (Normal); URINE KETONE NEGATIVE (NEGATIVE); URINE LEUKOCYTE ESTERASE TRACE Leu/uL (Negative); URINE PROTEIN NEGATIVE (NEGATIVE); URINE UROBILINOGEN NORMAL mg/dL (0.2-1.0); WBC URINE 2 /hpf (0-5)
[2017-03-14 19:26] VITALS: BP 134/89; PULSE 65; RESP 18; TEMP 97.2
[2017-03-14 19:30] VITALS: O2SAT 98
--- NOTE | 2017-03-15 11:02 | RAD ---
PROCEDURE: Radiographs of the Lumbar Spine. HISTORY: Back pain COMPARISON: No prior. FINDINGS: BONES: There is normal alignment of the lumbar vertebral bodies. There is normal lumbar lordosis. Vertebral height is normal. Bone mineralization is normal. There is no acute fracture or spondylolysis. DISC SPACES: There is multilevel degenerative disc disease with anterior osteophytes, reduced disc heights and multilevel facet arthropathy, worse at L4-5. OTHER FINDINGS: There are no pathologic soft tissue calcifications. 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 Multilevel degenerative disc disease, worse at L4-5.
== END 2017-03-14 19:31 | disposition home or self-care (01) ==
LOC: C.ER 17:42
DX: S39.012A Strain of muscle, fascia and tendon of lower back, initial encounter (principal); X58.XXXA Exposure to other specified factors, initial encounter; I10 Essential (primary) hypertension

== ENCOUNTER 2018-02-06 08:59 | Day surgery (SDC) | payer MEDICARE ==
[2018-01-24 13:15] VITALS: BMI 25.1
[2018-02-06] MEDS ORDERED: Propofol 10 mg/ml Inj (20 ML) ONE (10:34)
[2018-02-06] MEDS ORDERED: cefTRIAXone 1 gm 1 GM/100 ML BAG IVPB ONE (10:38)
[2018-02-06] MEDS ORDERED: Lactated Ringer's 1,000 ML IV SCH (11:00)
[2018-02-06 11:58] VITALS: RESP 18; TEMP 97.7; O2SAT 99
[2018-02-06 14:01] VITALS: BP 124/71; PULSE 63
--- NOTE | 2018-03-06 10:48 | OP ---
PROCEDURE DATE: 02/06/2018 PREOPERATIVE DIAGNOSES: Voiding dysfunction, decreased force of stream, nocturia, voiding dysfunction, irritative and obstructive complaints. POSTOPERATIVE DIAGNOSES: Voiding dysfunction, decreased force of stream, nocturia, voiding dysfunction, irritative and obstructive complaints. PROCEDURE PERFORMED: Cystoscopy. SURGEON: Jt Ferguson MD ESTIMATED BLOOD LOSS: Less than 2 mL. FINDINGS: 1. Normal anterior urethra. No strictures. 2. The verumontanum is visually occlusive about 3 cm with a fairly occlusive prostate. 3. Just mIldly trabeculated bladder. 4. No bladder lesions are seen. INDICATIONS: See history and physical for further details. A very pleasant gentleman who is here for the above procedure. DESCRIPTION OF PROCEDURE: After obtaining informed consent, the patient was placed on the table. Routine monitors were placed. Time-out was called to confirm patient and positioning. We introduced the cystoscope via the urethra. Anterior urethra is normal. No strictures. Verumontanum was visually occlusive. He has a fairly large prostate. We had previously tried a microwave thermal therapy. It is definitely not the anatomy, but it is not wide open at all. Bladder was mildly trabeculated. We do not see any other abnormalities. The patient tolerated the bladder exam. Cystoscope removed. Rectal exam showed 30 g prostate that was smooth. Overall the patient ____ complications. We are going to try medical therapy, but my recommendation could improve this patient's symptoms. He has both irritative and obstructive complaints, it is more obstructive in nature. I think he would benefit from a GreenLight Laser. I will discuss various options with the patient. Jt Ferguson MD
--- NOTE | 2018-03-06 18:55 | HP ---
REASON FOR ADMISSION: Voiding dysfunction, decreased force of stream, nocturia. HISTORY OF PRESENT ILLNESS: Mr. Millan is a very pleasant gentleman whom we know quite well. He previously had multiple treatments, see previous notes. He is here now for further evaluation. PAST MEDICAL AND SURGICAL HISTORY: Listed on the chart, otherwise unremarkable. 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 MEDICATIONS: See the chart. ALLERGIES: All that is noted. REVIEW OF SYSTEMS: No weight loss, chest pain, or shortness of breath. No constitutional complaints. PHYSICAL EXAMINATION: GENERAL: A well-nourished male, in no apparent distress. VITAL SIGNS: Within normal limit and included in the chart. LUNGS: Clear. HEART: Normal S1 and S2. ABDOMEN: Soft, nontender. No flank mass appreciated. 20 to 30 g prostate that was smooth. LABORATORY DATA: See chart. DIAGNOSES: Voiding dysfunction, decreased force of stream, nocturia, irritative and obstructive complaints, more obstructive in nature. PLAN: As follows: Today, we are going to plan for cystoscopy and then make further recommendations. We had discussed the benefits of cystoscopy in the office. He preferred to do it here. The plan is as follows. 1. Antibiotic prophylaxis. 2. Cystoscopy. 3. Further plans will follow. Jt Ferguson MD
== END 2018-02-06 15:10 | disposition home or self-care (01) ==
LOC: C.SDS 08:59
PROVIDERS: ATTEND Urology
DX: N40.1 Benign prostatic hyperplasia with lower urinary tract symptoms (principal); N36.8 Other specified disorders of urethra; R31.29 Other microscopic hematuria; N32.89 Other specified disorders of bladder; R39.12 Poor urinary stream; R35.1 Nocturia
CPT/HCPCS: 52000; J0696; J2704; J3010

== ENCOUNTER 2018-02-23 09:34 | Inpatient (IN) | payer MEDICARE ==
[2018-02-23 09:35] VITALS: BMI 25.1
--- NOTE | 2018-02-23 09:56 | C.PDOC ---
History Of Present Illness 82 y/o male presents to ED with complaints of MUSTAFA and chest pain x4 days, associated with mild epigastric chest pressure that resolves with rest. Patient states it "gets very winded" during mild and moderate exertion but can be resol carole with rest. Patient is currently "breathing normally" with residual chest pressure. Denies leg swelling, pain, fever, cough, or history of smoking and CHF. Patient does not have O2 at home. Currently feels better with O2 in the ER. NEW ONSET MUSTAFA, CP X 4 DAYS. PS "GET VERY WINDED" DURING MILD/MODERATE EXERTION, RESOLVES W REST. ASSOC MILD EPIG CHEST PRESSURE RESOLVES W REST. CURRENTLY "BREATHING NORMALLY", STILL W RESIDUAL CHEST PRESSURE. NO LEG SWELL, PAIN. NO FEVER, COUGH. DENIES HO CHF, DIURETIC USE. DENIES HO SMOKING. NO HOME O2 USE, CURRENTLY FEELS BETTER W ER O2 EXAM MILD DIST NONTOXIC HEENT NEG LUNGS L BASILAR RALE/RHONCHI SPEAKING FULL SENTENCES NO RETRACTION WHEEZE CV RRR NO EDEMA, SWELLING REMAINDE RNEG Time Seen by Provider: 02/23/18 09:54 History Per: Patient History/Exam Limitations: no limitations Onset/Duration Of Symptoms: Days Current Symptoms Are (Timing): Still Present Past Medical History Reviewed: Historical Data, Nursing Documentation, Vital Signs - Medical History PMH: Fractures (LEFT HEEL), Gall Bladder Disease, HTN, Pneumonia (CHILDHOOD) Denies: Chronic Kidney Disease Surgical History: Cholecystectomy Family History: States: No Known Family Hx - Social History Hx Alcohol Use: No Hx Substance Use: No Review Of Systems Except As Marked, All Systems Reviewed And Found Negative. Constitutional: Negative for: Fever Cardiovascular: Positive for: Chest Pain, Other (Dyspnea on exertion) Respiratory: Negative for: Cough Musculoskeletal: Negative for: Leg Pain, Other (leg swelling) Physical Exam - Physical Exam Appears: Non-toxic, In Acute Distress (Mild) Skin: Warm, Dry Head: Atraumatic, Normacephalic Eye(s): bilateral: Normal Inspection, PERRL, EOMI Ear(s): Bilateral: Normal Nose: Normal Oral Mucosa: Moist Throat: Normal, No Erythema, No Exudate Neck: Supple Chest: Symmetrical Cardiovascular: Rhythm Regular, No Murmur Respiratory: Rales (basilar), Rhonchi, No Wheezing, Other (Speaking full sentences) Gastrointestinal/Abdominal: Soft, No Tenderness Extremity: No Pedal Edema, No Swelling Neurological/Psych: Oriented x3, Normal Speech, Normal Motor, Normal Sensation Gait: Steady ED Course And Treatment - Laboratory Results Result Diagrams: 02/23/18 10:13 02/23/18 10:13 ECG: Interpreted By Me, Viewed By Me ECG Rhythm: Sinus Tachycardia, R BBB Rate From EC O2 Sat by Pulse Oximetry: 91 (RA) Pulse Ox Interpretation: Abnormal - Radiology CXR: Interpreted by Me, Viewed By Me CXR Interpretation: Yes: Other (mild vascular congestion compared to prior) Progress - Re-Evaluation Re-evaluation Note: 02/23/18 12:01 NARD VSS [facility] PRIOR D/W DR Laura CUNNINGHAM WILL ADMIT - Data Reviewed Data Reviewed: Lab, Diagnostic imaging, EKG, Old records - Critical Care Citical Care: Excluding Proc Time Critical Care Time: 60 minutes Medical Decision Making Medical Decision Making: Plan: --EKG --Bloodwork --Chest X-Ray CXR showed mild vascular congestion compared to prior CXR. Disposition Counseled Patient/Family Regarding: Studies Performed, Diagnosis - Disposition Disposition: HOSPITALIZED Disposition Time: 12:01 Condition: SERIOUS - POA Present On Arrival: None - Clinical Impression Clinical Impression: New onset of congestive heart failure, Hypoxia - Scribe Statement The provider has reviewed the documentation as recorded by the Abhay Rodriguez Provider Attestation: All medical record entries made by the Susanibmerary were at my direction and personally dictated by me. I have reviewed the chart and agree that the record accurately reflects my personal performance of the history, physical exam, medical decision making, and the department course for this patient. I have also personally directed, reviewed, and agree with the discharge instructions and disposition.
[2018-02-23 10:33] LABS: BASO % 0.5 % (0.0-2.0); CALCIUM 9.1 mg/dl (8.6-10.4); EOS # 0.2 K/uL (0.0-0.7); EOS % 2.4 % (0.0-4.0); HEMOGLOBIN 15.6 g/dL (12.0-18.0); LYMPH # 1.6 K/uL (1.0-4.3); LYMPH % 23.9 % (20.0-40.0); MEAN CELL VOLUME 85.4 fL (80.0-94.0); MEAN CORPUSCULAR HEMOGLOBIN 28.8 pg (27.0-31.0); MEAN CORPUSCULAR HGB CONC 33.7 g/dL (33.0-37.0); MEAN PLATELET VOLUME 8.2 fL (7.2-11.7); MONO # 0.7 K/uL (0.0-0.8); MONO % 10.2 % (0.0-10.0); NEUT # 4.2 K/uL (1.8-7.0); NRBC % 0.1 % (0.0-2.0); RBC 5.41 Mil/uL (4.40-5.90); RED CELL DISTRIBUTION WIDTH 13.5 % (11.5-14.5); WHITE BLOOD COUNT 6.7 K/uL (4.8-10.8)
[2018-02-23 10:36] LABS: ALB/GLOB RATIO 1.1 (1.0-2.1)
[2018-02-23 10:45] LABS: TROPONIN I 0.092 ng/mL (0.00-0.120)
--- NOTE | 2018-02-23 12:46 | RAD ---
Date of service: 02/23/2018 HISTORY: SOB COMPARISON: 02/14/2017 TECHNIQUE: Chest PA and lateral FINDINGS: LUNGS: No active pulmonary disease. PLEURA: Mild nonspecific elevation of the right hemidiaphragm, unchanged. Minimal bilateral apical pleural thickening, likely postinflammatory and unchanged. CARDIOVASCULAR: No aortic atherosclerotic calcification present. Normal cardiac size. No pulmonary vascular congestion. OSSEOUS STRUCTURES: No significant abnormalities. VISUALIZED UPPER ABDOMEN: Normal. OTHER FINDINGS: None. IMPRESSION: No acute infiltrate.
[2018-02-23] MEDS ORDERED: Albuterol-Ipratrop 3 mg / 0.5 (3 ml) UD ONE (20:38)
[2018-02-23] MEDS: Albuterol-Ipratrop 3 mg / 0.5 (3 ml) UD INH SCH (20:55)
[2018-02-23] MEDS ORDERED: Enoxaparin 30 mg Syringe SC SCH (22:00)
[2018-02-24] MEDS: Albuterol-Ipratrop 3 mg / 0.5 (3 ml) UD INH SCH ×4 (02:00→19:59)
[2018-02-24 07:02] LABS: CALCIUM 8.9 mg/dl (8.6-10.4)
--- NOTE | 2018-02-24 08:12 | CP.PCM.CON ---
<Lynda Petit - Last Filed: 02/24/18 12:34> History of Present Illness - History of Present Illness History of Present Illness: Cardiology Consult Note This is an 82 year old male with a past medical history of hypertension and hyperlipidemia, who was referred to our service by Dr. Hughes, who presented to the ED with progressive shortness of breath and chest pressure. Patient reported he started to experience a worsening progress of shortness of breath for the past 3 months. He used to be able to walk 3-4 miles every other day without difficult; ambulate up 2 flights of stairs without stopping, and was able to lie flat. He reported starting this past weekend he was unable to walk from his living room to the bathroom without immense shortness of breath and chest pressure. He could not walk up 1 flight of stairs without stopping, and he now has to sleep with 2-3 pillows to not feel as if he is choking. He admitted to bilateral intermittent calf pain for the past few weeks. He reports not ambulating as much the past 2-3 days due to this shortness of breath. Denied any recent travel or long car rides. Denied any current chest pain, shortness of breath, palpitations, dizziness, nausea, abdominal pain, lower extremity swelling or pain. PMHx: As noted above PSHx: Denied All: shellfish (nausea) (has never had IV contrast before) SHx: Denied tobacco, alcohol or illicit drug use FHx: Mother had a stroke at the age of 60, recovered well. Denied any heart disease or sudden deaths in immediate family Review of Systems - Constitutional Constitutional: Fatigue. absent: Chills, Fever, Weight Loss - EENT Eyes: absent: Blurred Vision, Change in Vision Ears: absent: Ear Pain, Tinnitus Nose/Mouth/Throat: absent: Nasal Discharge, Bleeding Gums, Dry Mouth, Dysphagia - Cardiovascular Cardiovascular: Dyspnea on Exertion, Orthopnea, Pedal Edema. absent: Chest Pain, Chest Pain at Rest, Chest Pain with Activity, Diaphoresis, Edema, Leg E tomi, Palpitations, Rapid Heart Rate, Syncope - Respiratory Respiratory: absent: Cough, Wheezing - Gastrointestinal Gastrointestinal: absent: Abdominal Pain, Diarrhea, Nausea, Vomiting - Genitourinary Genitourinary: absent: Dysuria, Hematuria - Musculoskeletal Musculoskeletal: absent: Back Pain, Myalgias, Numbness, Stiffness - Integumentary Integumentary: absent: Dry Skin, Lesions, Pruritus - Neurological Neurological: absent: Abnormal Gait, Dizziness, Numbness, Syncope, Weakness - Psychiatric Psychiatric: absent: Anxiety, Depression - Endocrine Endocrine: absent: Polydipsia, Polyphagia, Polyuria - Hematologic/Lymphatic Hematologic: absent: Easy Bleeding, Easy Bruising Past Patient History - Past Medical History & Family History Past Medical History?: Yes - Past Social History Smoking Status: Never Smoked - CARDIAC Hx Hypertension: Yes - PULMONARY Hx Pneumonia: Yes (CHILDHOOD) - NEUROLOGICAL Hx Neurological Disorder: Yes Hx Dizziness: Yes - HEENT Hx HEENT Problems: No - RENAL Hx Chronic Kidney Disease: No - ENDOCRINE/METABOLIC Hx Endocrine Disorders: No - HEMATOLOGICAL/ONCOLOGICAL Hx Blood Disorders: Yes Hx Shingles: Yes - INTEGUMENTARY Hx Dermatological Problems: No - MUSCULOSKELETAL/RHEUMATOLOGICAL Hx Fractures: Yes (LEFT HEEL) - GASTROINTESTINAL Hx Gall Bladder Disease: Yes - GENITOURINARY/GYNECOLOGICAL Hx Genitourinary Disorders: Yes Hx Hematuria: Yes Hx Prostate Problems: Yes - PSYCHIATRIC Hx Substance Use: No - SURGICAL HISTORY Hx Cholecystectomy: Yes - ANESTHESIA Hx Anesthesia: Yes Hx Anesthesia Reactions: No Hx Malignant Hyperthermia: No Meds Allergies/Adverse Reactions: Allergies Allergy/AdvReac Type Severity Reaction Status Date / Time shellfish derived AdvReac Severe NAUSEA Verified 03/14/17 17:53 - Medications Medications: Current Medications Albuterol/Ipratropium (Duoneb 3 Mg/0.5 Mg (3 Ml) Ud) 3 ml INH RQ6 [facility] Last Admin: 02/24/18 02:00 Dose: Not Given Clopidogrel Bisulfate (Plavix) 75 mg PO DAILY [facility] Furosemide (Lasix) 40 mg PO Q12 [facility] Last Admin: 02/23/18 21:47 Dose: 40 mg Heparin Sodium (Porcine) (Heparin) 5,000 units SC Q8 [facility] Last Admin: 02/24/18 05:59 Dose: 5,000 units Lisinopril (Zestril) 5 mg PO DAILY [facility] Results - Vital Signs Recent Vital Signs: Last Vital Signs Temp 97.9 F 02/24/18 07:35 Pulse 104 H 02/24/18 07:35 Resp 17 02/24/18 07:35 BP 134/90 02/24/18 07:35 Pulse Ox 97 02/24/18 07:35 - Labs Result Diagrams: 02/23/18 10:13 02/24/18 06:35 Labs: Laboratory Results - last 24 hr 02/23/18 02/23/18 02/23/18 10:13 10:13 14:41 WBC 6.7 RBC 5.41 Hgb 15.6 Hct 46.2 MCV 85.4 MCH 28.8 MCHC 33.7 RDW 13.5 Plt Count 317 MPV 8.2 Neut % (Auto) 63.0 Lymph % (Auto) 23.9 [place] % (Auto) 10.2 H Eos % (Auto) 2.4 Baso % (Auto) 0.5 Neut # (Auto) 4.2 Lymph # (Auto) 1.6 [place] # (Auto) 0.7 Eos # (Auto) 0.2 Baso # (Auto) 0.0 D-Dimer, Quantitative 1274 H Sodium 140 Potassium 5.0 Chloride 102 Carbon Dioxide 27 Anion Gap 16 BUN 19 Creatinine 1.5 Est GFR ( Amer) 54 Est GFR (Non-Af Amer) 45 Random Glucose 127 H Calcium 9.1 Total Bilirubin 0.9 AST 31 ALT 14 L D Alkaline Phosphatase 103 Troponin I 0.0920 NT-Pro-B Natriuret Pep 8780 H Total Protein 7.7 Albumin 4.0 Globulin 3.7 Albumin/Globulin Ratio 1.1 02/23/18 02/24/18 02/24/18 19:59 01:58 06:35 WBC RBC Hgb Hct MCV MCH MCHC RDW Plt Count MPV Neut % (Auto) Lymph % (Auto) [place] % (Auto) Eos % (Auto) Baso % (Auto) Neut # (Auto) Lymph # (Auto) [place] # (Auto) Eos # (Auto) Baso # (Auto) D-Dimer, Quantitative Sodium 142 Potassium 4.2 Chloride 104 Carbon Dioxide 27 Anion Gap 16 BUN 20 Creatinine 1.6 H Est GFR ( Amer) 50 Est GFR (Non-Af Amer) 42 Random Glucose 121 H Calcium 8.9 Total Bilirubin AST ALT Alkaline Phosphatase Troponin I 0.0740 0.0730 NT-Pro-B Natriuret Pep Total Protein Albumin Globulin Albumin/Globulin Ratio Assessment & Plan - Assessment and Plan (Free Text) Plan: Dyspnea Hypoxia on Admission Pulmonary Embolism Imaging: - EKG: sinus tachy at 117 BPM, RBBB noted - Chest CT w/o contrast: unremarkable - V/Q Scan (performed in like of renal function): High probability ventilation perfusion scan for pulmonary embolism. - Venous dopplers ordered of bilateral lower extremities: ordered, pending results - Prior ECHO 01/2017 - normal LVEF - ECHO: ordered, pending results; to determine if any underlying heart failure Management: - Well's Score of 6 - Hypercoagulability workup ordered - Heparin drip started, will transition to Eliquis Chest Pain - ACS ruled out Imaging: - EKG: sinus tachy at 117 BPM, RBBB noted Management: - SANDRA x 3 negative - Continue with ASA 81 PO daily Hypertension - Continue with ASA, Lisinopril - Encourage heart healthy, low salt diet Case discussed with Dr. Clemens, Lynda Petit DO, PGY2 <Osei Clemens - Last Filed: 02/24/18 23:50> Meds - Medications Medications: Current Medications Albuterol/Ipratropium (Duoneb 3 Mg/0.5 Mg (3 Ml) Ud) 3 ml INH RQ6 [facility] Last Admin: 02/24/18 19:59 Dose: Not Given Aspirin (Aspirin Chewable) 81 mg PO DAILY [facility] Last Admin: 02/24/18 10:31 Dose: 81 mg Furosemide (Lasix) 40 mg IVP DAILY [facility] Last Admin: 02/24/18 10:31 Dose: 40 mg Sodium Chloride (Sodium Chloride 0.9%) 1,000 mls @ 75 mls/hr IV .[id number] ONE Stop: 02/25/18 05:25 Last Admin: 02/24/18 16:25 Dose: 75 mls/hr Heparin Sodium/Sodium Chloride (Heparin 56367 Units/250ml 1/2 Normal Saline) 25,000 units in 250 mls @ 11.097 mls/hr IV .[id number] PRN; Protocol PRN Reason: ADJUST RATE PER PROTOCOL Last Admin: 02/24/18 19:14 Dose: 15 units/kg/hr, 11.097 mls/hr Lisinopril (Zestril) 5 mg PO DAILY [facility] Last Admin: 02/24/18 10:30 Dose: 5 mg Results - Vital Signs Recent Vital Signs: Last Vital Signs Temp 97.5 F L 02/24/18 16:00 Pulse 120 H 02/24/18 19:00 Resp 20 02/24/18 16:00 BP 101/69 02/24/18 16:00 Pulse Ox 95 02/24/18 16:00 - Labs Result Diagrams: 02/23/18 10:13 02/24/18 06:35 Labs: Laboratory Results - last 24 hr 02/24/18 02/24/18 02/24/18 01:58 06:35 14:06 APTT Sodium 142 Potassium 4.2 Chloride 104 Carbon Dioxide 27 Anion Gap 16 BUN 20 Creatinine 1.6 H Est GFR ( Amer) 50 Est GFR (Non-Af Amer) 42 Random Glucose 121 H Hemoglobin A1c Calcium 8.9 Troponin I 0.0730 Triglycerides 131 D Cholesterol 233 H LDL Cholesterol Direct 161 H HDL Cholesterol 35 Free T4 TSH 3rd Generation 0.50 02/24/18 02/24/18 02/24/18 14:06 14:06 17:27 APTT 156 H* Sodium Potassium Chloride Carbon Dioxide Anion Gap BUN Creatinine Est GFR ( Amer) Est GFR (Non-Af Amer) Random Glucose Hemoglobin A1c 6.0 Calcium Troponin I Triglycerides Cholesterol LDL Cholesterol Direct HDL Cholesterol Free T4 1.63 TSH 3rd Generation Assessment & Plan - Assessment and Plan (Free Text) Plan: Patient seen and evaluated personally by mn Plan of care d/w the pesticide use medical coordinator and as documented
--- NOTE | 2018-02-24 08:21 | CP.PCM.HP ---
History of Present Illness - History of Present Illness History of Present Illness: CC: short of breath 82 y/o male with BPH, HTN and Hyperlipidemia (Stop statin c/o muscle ache). Patient since 02/20 noted coco shortness of breath with effort. Also has dry cough and mild chest pain, sharp that goes to left shoulder. Pain is reproduce by movement. His shortness of breath is severe that he was unable to eat dinner. Present on Admission - Present on Admission Any Indicators Present on Admission: Yes History of DVT/PE: No History of Uncontrolled Diabetes: No Urinary Catheter: No Decubitus Ulcer Present: No Review of Systems - Review of Systems Systems not reviewed;Unavailable: Acuity of Condition - Constitutional Constitutional: Anorexia, Lethargy, Malaise, Weakness. absent: Excessive Sweating, Fever, Night Sweats, Sleep Apnea - EENT Eyes: absent: Change in Vision, Photophobia, Spots in Vision, Loss of Vision Ears: absent: Ear Discharge, Ear Pain, Tinnitus, Disequilibrium Nose/Mouth/Throat: absent: Nasal Congestion, Post Nasal Drip, Hoarsness, Mouth Pain - Cardiovascular Cardiovascular: Chest Pain, Claudication, Dyspnea. absent: Chest Pain at Rest, Diaphoresis, Leg Edema, Leg Ulcers, Orthopnea, Pedal Edema, Syncope - Respiratory Respiratory: Cough, Dyspnea on Exertion. absent: Chest Congestion, Excessive Mucous Production, Change in Mucous Color - Gastrointestinal Gastrointestinal: Abdominal Pain. absent: Dyspepsia, Dysphagia, Excessive Flatus - Genitourinary Genitourinary: absent: Dysuria, Nocturia, Urinary Frequency - Musculoskeletal Musculoskeletal: Abnormal Gait, Muscle Weakness. absent: Back Pain, Joint Swelling, Muscle Cramps, Myalgias, Numbness - Integumentary Integumentary: Dry Skin. absent: Acne, Hirsutism, Rash, Sores, Striae - Neurological Neurological: absent: Disequilibrium, Dizziness, Focal Weakness, Paresthesias, Restless Legs Past Patient History - Infectious Disease Hx of Infectious Diseases: None - Past Medical History & Family History Past Medical History?: Yes - Past Social History Smoking Status: Never Smoked - CARDIAC Hx Hypertension: Yes - PULMONARY Hx Pneumonia: Yes (CHILDHOOD) - NEUROLOGICAL Hx Neurological Disorder: Yes Hx Dizziness: Yes - HEENT Hx HEENT Problems: No - RENAL Hx Chronic Kidney Disease: No - ENDOCRINE/METABOLIC Hx Endocrine Disorders: No - HEMATOLOGICAL/ONCOLOGICAL Hx Blood Disorders: Yes Hx Shingles: Yes - INTEGUMENTARY Hx Dermatological Problems: No - MUSCULOSKELETAL/RHEUMATOLOGICAL Hx Fractures: Yes (LEFT HEEL) - GASTROINTESTINAL Hx Gall Bladder Disease: Yes - GENITOURINARY/GYNECOLOGICAL Hx Genitourinary Disorders: Yes Hx Hematuria: Yes Hx Prostate Problems: Yes - PSYCHIATRIC Hx Substance Use: No - SURGICAL HISTORY Hx Cholecystectomy: Yes - ANESTHESIA Hx Anesthesia: Yes Hx Anesthesia Reactions: No Hx Malignant Hyperthermia: No Meds Allergies/Adverse Reactions: Allergies Allergy/AdvReac Type Severity Reaction Status Date / Time shellfish derived AdvReac Severe NAUSEA Verified 03/14/17 17:53 Physical Exam - Constitutional Appears: No Acute Distress - Eye Exam Eye Exam: Normal appearance - ENT Exam ENT Exam: Mucous Membranes Dry - Neck Exam Neck exam: Positive for: Full Rom. Negative for: Meningismus, Thyromegaly - Respiratory Exam Respiratory Exam: Decreased Breath Sounds. absent: Rales, Rhonchi, Wheezes - Cardiovascular Exam Cardiovascular Exam: REGULAR RHYTHM, +S1, +S2, Systolic Murmur. absent: Gallop, JVD - GI/Abdominal Exam GI & Abdominal Exam: Soft. absent: Rigid, Tenderness - Extremities Exam Extremities exam: Positive for: full ROM, normal capillary refill, pedal pulses present. Negative for: calf tenderness, joint swelling, pedal edema Results - Vital Signs Recent Vital Signs: Last Vital Signs Temp 97.9 F 02/24/18 07:35 Pulse 104 H 02/24/18 07:35 Resp 17 02/24/18 07:35 BP 134/90 02/24/18 07:35 Pulse Ox 97 02/24/18 07:35 - Labs Result Diagrams: 02/23/18 10:13 02/24/18 06:35 Labs: Laboratory Results - last 24 hr 02/23/18 02/23/18 02/23/18 10:13 10:13 14:41 WBC 6.7 RBC 5.41 Hgb 15.6 Hct 46.2 MCV 85.4 MCH 28.8 MCHC 33.7 RDW 13.5 Plt Count 317 MPV 8.2 Neut % (Auto) 63.0 Lymph % (Auto) 23.9 [place] % (Auto) 10.2 H Eos % (Auto) 2.4 Baso % (Auto) 0.5 Neut # (Auto) 4.2 Lymph # (Auto) 1.6 [place] # (Auto) 0.7 Eos # (Auto) 0.2 Baso # (Auto) 0.0 D-Dimer, Quantitative 1274 H Sodium 140 Potassium 5.0 Chloride 102 Carbon Dioxide 27 Anion Gap 16 BUN 19 Creatinine 1.5 Est GFR ( Amer) 54 Est GFR (Non-Af Amer) 45 Random Glucose 127 H Calcium 9.1 Total Bilirubin 0.9 AST 31 ALT 14 L D Alkaline Phosphatase 103 Troponin I 0.0920 NT-Pro-B Natriuret Pep 8780 H Total Protein 7.7 Albumin 4.0 Globulin 3.7 Albumin/Globulin Ratio 1.1 02/23/18 02/24/18 02/24/18 19:59 01:58 06:35 WBC RBC Hgb Hct MCV MCH MCHC RDW Plt Count MPV Neut % (Auto) Lymph % (Auto) [place] % (Auto) Eos % (Auto) Baso % (Auto) Neut # (Auto) Lymph # (Auto) [place] # (Auto) Eos # (Auto) Baso # (Auto) D-Dimer, Quantitative Sodium 142 Potassium 4.2 Chloride 104 Carbon Dioxide 27 Anion Gap 16 BUN 20 Creatinine 1.6 H Est GFR ( Amer) 50 Est GFR (Non-Af Amer) 42 Random Glucose 121 H Calcium 8.9 Total Bilirubin AST ALT Alkaline Phosphatase Troponin I 0.0740 0.0730 NT-Pro-B Natriuret Pep Total Protein Albumin Globulin Albumin/Globulin Ratio - EKG Data EKG Interpreted by: Myself EKG shows normal: ST-T waves (Complete RBBB, biphasic T waves) Assessment & Plan - Assessment and Plan (Free Text) Assessment: CHF; Atyp chest pain HTN, BPH Cont meds/ supportive care Recheck prev Cardiac cath; Will do CT r/o PE
[2018-02-24] MEDS ORDERED: Heparin25000 units/250ml 1/2NS 25,000 UNITS/250 ML BAG IV PRN ×2 (08:36→09:45)
--- NOTE | 2018-02-24 11:06 | CT ---
Date of service: 02/24/2018 PROCEDURE: CT Chest without contrast HISTORY: short of breth; in bed since 02/20 - r/o PE COMPARISON: Comparison is made with the previous lung scan dated 02/24/2018 TECHNIQUE: Contiguous axial images were obtained through the chest without intravenous contrast enhancement. Sagittal and coronal reconstructions were performed. Radiation dose: Total exam DLP = 397.67 mGy-cm. This CT exam was performed using one or more of the following dose reduction techniques: Automated exposure control, adjustment of the mA and/or kV according to patient size, and/or use of iterative reconstruction technique. FINDINGS: LUNGS: There is no evidence of consolidation or infiltrate in the lungs. Small reticular opacities at the lung bases noted. There is mild central and lower lobe bronchiectasis noted. MEDIASTINUM: Unremarkable thoracic aorta. No aneurysm. The heart is mildly enlarged. Main pulmonary artery unremarkable. No vascular congestion. No lymphadenopathy. No aortic atherosclerotic calcification. PLEURA: No pleural fluid. No pneumothorax. BONES: No fracture. No destructive lesion. UPPER ABDOMEN: There 2 millimeter nonobstructing calculus noted at the upper pole of the left kidney. Patient status post cholecystectomy. There is low-attenuation lesion at the inferior aspect of the right liver lobe measures 0.9 centimeter not fully characterized in this exam. There is a small hiatus hernia. OTHER FINDINGS: None. IMPRESSION: No evidence of consolidation or infiltrate in the lungs. Mild bronchiectasis. Mild cardiomegaly. Small hiatus hernia. Cannot rule out PE in this study without IV contrast administration.
--- NOTE | 2018-02-24 12:21 | NM ---
Date of service: 02/24/2018 COMPARISON: February 23, 2018. Two-view chest February 24, 2018 CT thorax TECHNIQUE: 7.0 mCi technetium 99-m Xe-133 Gas. 3.4 mCI technetium 99-m MAA administered intravenously. FINDINGS: VENTILATION COMPONENT: Normal. PERFUSION COMPONENT: Large perfusion defects in the right upper lobe and left upper lobe IMPRESSION: High probability ventilation perfusion scan for pulmonary embolism. Communication of critical results: Study completed 09:50. Verbal presents provided at 12:15. Read back provided by nurse involved in the care and management this patient (Anju)
--- NOTE | 2018-02-24 16:03 | CP.PCM.CON ---
History of Present Illness - History of Present Illness History of Present Illness: Patient is a 82 y/o male with PMHx of BPH, HTN, and hyperlipidemia who presented to the ED on 02/23/18 with complaint of SOB with effort since 02/20. Patient also reports dry cough and chest pain that radiates to left shoulder that is reproduced with movement. He states that SOB has been severe enough that he has been unable to eat dinner. Denies headache, n/v/d, and blurry vision. Chest CT w/o contrast was ordered to Cr of 1.6. CT showed mild bronchiestasis and cardiomegaly and a small hiatus hernia was also noted. PE was not ruled out with Chest CT and V/Q scan was performed today. Echo was ordered and showed dilated Right ventricle, hypokinetic right ventricle and right sided hypertension. -D-Dimer: 1274 PMHx: BPH, HTN, and hyperlipidemia, dizziness PSHx: Cholecystectomy Meds: Duoneb, Aspirin 81 mg, Lasix 40 mg, Zestril 5 mg, Crestor 5 mg, Heparin subQ FHx: denies Allergies: Shellfish Social: denies tobacco, alcohol, and drug use; -V/Q Scan (02/24/18) - High probability for pulmonary embolism. Large perfusion deficits in right upper lobe and left upper lobe. Review of Systems - Review of Systems All systems: reviewed and no additional remarkable complaints except (SHORTNESS OF BREATH) Past Patient History - Infectious Disease Hx of Infectious Diseases: None - Past Medical History & Family History Past Medical History?: Yes - Past Social History Smoking Status: Never Smoked - CARDIAC Hx Hypertension: Yes - PULMONARY Hx Pneumonia: Yes (CHILDHOOD) - NEUROLOGICAL Hx Neurological Disorder: Yes Hx Dizziness: Yes - HEENT Hx HEENT Problems: No - RENAL Hx Chronic Kidney Disease: No - ENDOCRINE/METABOLIC Hx Endocrine Disorders: No - HEMATOLOGICAL/ONCOLOGICAL Hx Blood Disorders: Yes Hx Shingles: Yes - INTEGUMENTARY Hx Dermatological Problems: No - MUSCULOSKELETAL/RHEUMATOLOGICAL Hx Fractures: Yes (LEFT HEEL) - GASTROINTESTINAL Hx Gall Bladder Disease: Yes - GENITOURINARY/GYNECOLOGICAL Hx Genitourinary Disorders: Yes Hx Hematuria: Yes Hx Prostate Problems: Yes - PSYCHIATRIC Hx Substance Use: No - SURGICAL HISTORY Hx Cholecystectomy: Yes - ANESTHESIA Hx Anesthesia: Yes Hx Anesthesia Reactions: No Hx Malignant Hyperthermia: No Meds Allergies/Adverse Reactions: Allergies Allergy/AdvReac Type Severity Reaction Status Date / Time shellfish derived AdvReac Severe NAUSEA Verified 03/14/17 17:53 - Medications Medications: Current Medications Albuterol/Ipratropium (Duoneb 3 Mg/0.5 Mg (3 Ml) Ud) 3 ml INH RQ6 [facility] Last Admin: 02/24/18 08:48 Dose: Not Given Aspirin (Aspirin Chewable) 81 mg PO DAILY [facility] Last Admin: 02/24/18 10:31 Dose: 81 mg Furosemide (Lasix) 40 mg IVP DAILY [facility] Last Admin: 02/24/18 10:31 Dose: 40 mg Heparin Sodium/Sodium Chloride (Heparin 02040 Units/250ml 1/2 Normal Saline) 25,000 units in 250 mls @ 13.317 mls/hr IV .[id number] PRN; Protocol PRN Reason: ADJUST RATE PER PROTOCOL Last Admin: 02/24/18 10:43 Dose: 18 units/kg/hr, 13.317 mls/hr Lisinopril (Zestril) 5 mg PO DAILY [facility] Last Admin: 02/24/18 10:30 Dose: 5 mg Physical Exam - Head Exam Head Exam: ATRAUMATIC, NORMOCEPHALIC - ENT Exam ENT Exam: Mucous Membranes Moist - Neck Exam Neck exam: Positive for: Normal Inspection - Respiratory Exam Respiratory Exam: Clear to Auscultation Bilateral - Cardiovascular Exam Cardiovascular Exam: REGULAR RHYTHM Results - Vital Signs Recent Vital Signs: Last Vital Signs Temp 97.4 F L 02/24/18 08:05 Pulse 111 H 02/24/18 14:43 Resp 22 02/24/18 12:42 BP 122/80 02/24/18 10:31 Pulse Ox 97 02/24/18 12:42 - Labs Result Diagrams: 02/25/18 07:22 02/25/18 07:22 Labs: Laboratory Results - last 24 hr 02/23/18 02/24/18 02/24/18 19:59 01:58 06:35 Sodium 142 Potassium 4.2 Chloride 104 Carbon Dioxide 27 Anion Gap 16 BUN 20 Creatinine 1.6 H Est GFR ( Amer) 50 Est GFR (Non-Af Amer) 42 Random Glucose 121 H Hemoglobin A1c Calcium 8.9 Troponin I 0.0740 0.0730 Triglycerides Cholesterol LDL Cholesterol Direct HDL Cholesterol Free T4 TSH 3rd Generation 02/24/18 02/24/18 02/24/18 14:06 14:06 14:06 Sodium Potassium Chloride Carbon Dioxide Anion Gap BUN Creatinine Est GFR ( Amer) Est GFR (Non-Af Amer) Random Glucose Hemoglobin A1c 6.0 Calcium Troponin I Triglycerides 131 D Cholesterol 233 H LDL Cholesterol Direct 161 H HDL Cholesterol 35 Free T4 1.63 TSH 3rd Generation 0.50 Assessment & Plan (1) Pulmonary embolism Status: Acute Comment: high probability VQ scan. Echo consistent with right-sided strain and agitation. unable to obtain CT angio because of renal insufficiency. IR evaluation for catheter directed thrombolysis. Continue heparin drip. Neurolo gy evaluation
[2018-02-24] MEDS ORDERED: Sodium Chloride 0.9% 1,000 ML IV ONE (16:06)
[2018-02-24] MEDS: Heparin25000 units/250ml 1/2NS 25,000 UNITS/250 ML BAG IV PRN (19:14)
[2018-02-25] MEDS: Albuterol-Ipratrop 3 mg / 0.5 (3 ml) UD INH SCH ×4 (01:49→20:47)
[2018-02-25 07:27] LABS: BASO # 0.1 K/uL (0.0-0.2); BASO % 0.9 % (0.0-2.0); EOS # 0.2 K/uL (0.0-0.7); EOS % 3.4 % (0.0-4.0); HEMOGLOBIN 15.4 g/dL (12.0-18.0); LYMPH # 1.7 K/uL (1.0-4.3); LYMPH % 24.2 % (20.0-40.0); MEAN CELL VOLUME 84.5 fL (80.0-94.0); MEAN CORPUSCULAR HGB CONC 34.3 g/dL (33.0-37.0); MONO # 0.7 K/uL (0.0-0.8); NEUT # 4.4 K/uL (1.8-7.0); NEUT % 61.5 % (50.0-75.0); NRBC % 0.1 % (0.0-2.0); RBC 5.32 Mil/uL (4.40-5.90); RED CELL DISTRIBUTION WIDTH 13.8 % (11.5-14.5); WHITE BLOOD COUNT 7.1 K/uL (4.8-10.8)
[2018-02-25 07:51] LABS: ALBUMIN 3.5 g/dL (3.5-5.0); CALCIUM 8.6 mg/dl (8.6-10.4)
--- NOTE | 2018-02-25 09:19 | CP.PCM.PN ---
Subjective - Date & Time of Evaluation Date of Evaluation: 02/25/18 Time of Evaluation: 08:20 - Subjective Subjective: Pt breathing is much better; no CP, no cough, no mucus, no palpitation, no diarrhea (+) unable to sleep well c/o beeping Objective - Vital Signs/Intake and Output Vital Signs (last 24 hours): Temp Pulse Resp BP Pulse Ox 97.6 F 101 H 20 109/79 96 02/25/18 08:13 02/25/18 08:13 02/25/18 08:13 02/25/18 08:13 02/25/18 08:13 Intake and Output: 02/25/18 02/25/18 06:59 18:59 Intake Total 154.7 Output Total 400 Balance -245.3 - Medications Medications: Current Medications Albuterol/Ipratropium (Duoneb 3 Mg/0.5 Mg (3 Ml) Ud) 3 ml INH RQ6 [facility] Last Admin: 02/25/18 01:49 Dose: Not Given Aspirin (Aspirin Chewable) 81 mg PO DAILY [facility] Last Admin: 02/25/18 09:10 Dose: 81 mg Heparin Sodium/Sodium Chloride (Heparin 31551 Units/250ml 1/2 Normal Saline) 25,000 units in 250 mls @ 11.097 mls/hr IV .[id number] PRN; Protocol PRN Reason: ADJUST RATE PER PROTOCOL Last Titration: 02/25/18 02:45 Dose: 12 units/kg/hr, 8.878 mls/hr Lisinopril (Zestril) 5 mg PO DAILY [facility] Last Admin: 02/25/18 09:10 Dose: 5 mg - Labs Labs: 02/25/18 07:22 02/25/18 07:22 APTT 120 SECONDS (21-34) H* D 02/25/18 00:54 - Constitutional Appears: Non-toxic - Eye Exam Eye Exam: Normal appearance - ENT Exam ENT Exam: Mucous Membranes Dry - Neck Exam Neck Exam: Full ROM. absent: Lymphadenopathy, Thyromegaly - Respiratory Exam Respiratory Exam: Decreased Breath Sounds. absent: Rales, Rhonchi, Wheezes - Cardiovascular Exam Cardiovascular Exam: REGULAR RHYTHM, +S1, +S2. absent: Gallop, JVD - GI/Abdominal Exam GI & Abdominal Exam: Soft. absent: Tenderness, Rebound - Extremities Exam Extremities Exam: Full ROM, Normal Capillary Refill. absent: Calf Tenderness, Joint Swelling, Pedal Edema Assessment and Plan - Assessment and Plan (Free Text) Assessment: Hypoxia likely PE; HTN, Hyperlipidemia Cont anticoagulation Stop Lasix/ Encourage to ambulate around his bed
[2018-02-25] MEDS: Heparin25000 units/250ml 1/2NS 25,000 UNITS/250 ML BAG IV PRN (13:43)
--- NOTE | 2018-02-25 16:17 | CP.PCM.PN ---
Subjective - Date & Time of Evaluation Date of Evaluation: 02/25/18 Time of Evaluation: 12:35 - Subjective Subjective: Patient seen and examined at bedside, lying down comfortably. Afebrile and in no acute distress. shortness of breath On minimal exertion, denies cough, chest pain or fever. Patient reports unable to sleep well due to beeping noise in the room. Patient on heparin drip to treat likely PE. Objective - Vital Signs/Intake and Output Vital Signs (last 24 hours): Temp Pulse Resp BP Pulse Ox 97.6 F 107 H 20 109/79 96 02/25/18 08:13 02/25/18 13:09 02/25/18 08:13 02/25/18 08:13 02/25/18 08:13 Intake and Output: 02/25/18 02/25/18 06:59 18:59 Intake Total 154.7 95.3 Output Total 400 Balance -245.3 95.3 - Medications Medications: Current Medications Albuterol/Ipratropium (Duoneb 3 Mg/0.5 Mg (3 Ml) Ud) 3 ml INH RQ6 [facility] Last Admin: 02/25/18 07:40 Dose: Not Given Aspirin (Aspirin Chewable) 81 mg PO DAILY [facility] Last Admin: 02/25/18 09:10 Dose: 81 mg Heparin Sodium/Sodium Chloride (Heparin 04488 Units/250ml 1/2 Normal Saline) 25,000 units in 250 mls @ 11.097 mls/hr IV .[id number] PRN; Protocol PRN Reason: ADJUST RATE PER PROTOCOL Last Admin: 02/25/18 13:43 Dose: 12 units/kg/hr, 8.878 mls/hr Lisinopril (Zestril) 5 mg PO DAILY [facility] Last Admin: 02/25/18 09:10 Dose: 5 mg - Labs Labs: 02/25/18 07:22 02/25/18 07:22 APTT 94 SECONDS (21-34) H D 02/25/18 11:28 - Head Exam Head Exam: ATRAUMATIC, NORMOCEPHALIC - ENT Exam ENT Exam: Mucous Membranes Moist - Neck Exam Neck Exam: Normal Inspection - Respiratory Exam Respiratory Exam: Clear to Ausculation Bilateral - Cardiovascular Exam Cardiovascular Exam: REGULAR RHYTHM - GI/Abdominal Exam GI & Abdominal Exam: Soft, Normal Bowel Sounds - Extremities Exam Extremities Exam: Normal Inspection - Neurological Exam Neurological Exam: Alert, Oriented x3 Assessment and Plan (1) Pulmonary embolism Assessment & Plan: continue IV heparin creatinine remains 1.6 after iv fluid and unable to get CT scan of the chest wit h contrast Patient hemodynamically stable and not candidate for IV thrombolytic Venous Doppler lower extremities Status: Acute
--- NOTE | 2018-02-25 17:12 | CARD ---
APPROVED REPORT Date of service: 02/24/2018 EKG Measurement Heart [id number] SD [id number] [id number] <Conclusion> Sinus tachycardia Left axis deviation Right bundle branch block Abnormal ECG
--- NOTE | 2018-02-25 17:26 | CP.PCM.PN ---
Subjective - Date & Time of Evaluation Date of Evaluation: 02/25/18 Time of Evaluation: 16:20 - Subjective Subjective: Patient on Heparin IV for PE Breathing better c/w yesterday PE management as per Pulmonary Objective - Vital Signs/Intake and Output Vital Signs (last 24 hours): Temp Pulse Resp BP Pulse Ox 97.7 F 105 H 20 119/70 95 02/25/18 15:00 02/25/18 15:00 02/25/18 15:00 02/25/18 15:00 02/25/18 15:00 Intake and Output: 02/25/18 02/25/18 06:59 18:59 Intake Total 154.7 95.3 Output Total 400 Balance -245.3 95.3 - Medications Medications: Current Medications Albuterol/Ipratropium (Duoneb 3 Mg/0.5 Mg (3 Ml) Ud) 3 ml INH RQ6 [facility] Last Admin: 02/25/18 07:40 Dose: Not Given Aspirin (Aspirin Chewable) 81 mg PO DAILY [facility] Last Admin: 02/25/18 09:10 Dose: 81 mg Heparin Sodium/Sodium Chloride (Heparin 39569 Units/250ml 1/2 Normal Saline) 25,000 units in 250 mls @ 11.097 mls/hr IV .[id number] PRN; Protocol PRN Reason: ADJUST RATE PER PROTOCOL Last Admin: 02/25/18 13:43 Dose: 12 units/kg/hr, 8.878 mls/hr Lisinopril (Zestril) 5 mg PO DAILY [facility] Last Admin: 02/25/18 09:10 Dose: 5 mg - Labs Labs: 02/25/18 07:22 02/25/18 07:22 APTT 59 SECONDS (21-34) H D 02/25/18 17:11
--- NOTE | 2018-02-25 18:51 | CARD ---
APPROVED REPORT Date of service: 02/24/2018 EXAM: Two-dimensional and M-mode echocardiogram with Doppler and color Doppler. Other Information Quality : GoodRhythm : INDICATION heart failure RISK FACTORS Hypertension Hyperlipidemia 2D DIMENSIONS IVSd1.2 (0.7-1.1cm)LVDd3.7 (3.9-5.9cm) PWd1.1 (0.7-1.1cm)LA Uvtilu20 (18-58mL) LVDs2.9 (2.5-4.0cm)FS (%) 22.4 % LVEF (%)45.9 (>50%)LVEF (Morrison's)43.92 % M-Mode DIMENSIONS Left Atrium (MM)3.37 (2.5-4.0cm)IVSd1.02 (0.7-1.1cm) Aortic Root3.39 (2.2-3.7cm)LVDd4.09 (4.0-5.6cm) Aortic Cusp Exc.2.00 (1.5-2.0cm)PWd0.96 (0.7-1.1cm) FS (%) 21 %LVDs3.24 (2.0-3.8cm) LVEF (%)43 (>50%) Mitral Valve MV E Ooiyceks34.6cm/sE/A ratio0.0 TDI Lateral E' Peak V5.13cm/sMedial E' Peak V3.51cm/sE/Lateral E'14.7 E/Medial E'21.5 Tricuspid Valve TR Peak Pwwmcvqx641xd/sTR Peak Gr.55ndQoFELT97cgQd LEFT VENTRICLE The left ventricle is normal size. There is normal left ventricular wall thickness. Left ventricle systolic function is mildly impaired. The Ejection Fraction is 45-50%. There is a flattened septum consistent with right ventricle volume and pressure overload. The left ventricular diastolic function is normal. RIGHT VENTRICLE The right ventricle is normal size. There is normal right ventricular wall thickness. Systolic function is mildly reduced. ATRIA The left atrium size is normal. The right atrium is mildly dilated. The interatrial septum bows toward left atrium consistent with elevated right atrial pressure. AORTIC VALVE The aortic valve is moderately thickened but opens well. No aortic regurgitation is present. There is no aortic valvular stenosis. Cannot exclude aortic valvular vegetation. MITRAL VALVE The mitral valve is normal in structure. There is no evidence of mitral valve prolapse. There is no mitral valve stenosis. Mitral regurgitation is mild. TRICUSPID VALVE The tricuspid valve is normal in structure. There is mild tricuspid regurgitation. Right ventricular systolic pressure is estimated at greater than 60 mmHg. There is severe pulmonary hypertension. PULMONIC VALVE The pulmonic valve is not well visualized. There is mild pulmonic valvular regurgitation. GREAT VESSELS The aortic root is normal in size. PERICARDIAL EFFUSION There is no significant pericardial effusion. <Conclusion> Left ventricle systolic function is mildly impaired. The Ejection Fraction is 45-50%. No aortic regurgitation is present. Cannot exclude aortic valvular vegetation. Mitral regurgitation is mild. There is mild tricuspid regurgitation. There is severe pulmonary hypertension. There is mild pulmonic valvular regurgitation.
[2018-02-26] MEDS: Albuterol-Ipratrop 3 mg / 0.5 (3 ml) UD INH SCH ×4 (01:26→19:42)
--- NOTE | 2018-02-26 07:28 | CP.PCM.PN ---
Subjective - Date & Time of Evaluation Date of Evaluation: 03/04/18 Time of Evaluation: 07:15 - Subjective Subjective: DONE Objective - Vital Signs/Intake and Output Vital Signs (last 24 hours): Temp Pulse Resp BP Pulse Ox 98.3 F 97 H 20 145/89 98 02/26/18 00:00 02/26/18 00:00 02/26/18 00:00 02/26/18 00:00 02/26/18 00:00 - Medications Medications: Current Medications Albuterol/Ipratropium (Duoneb 3 Mg/0.5 Mg (3 Ml) Ud) 3 ml INH RQ6 [facility] Last Admin: 02/26/18 01:26 Dose: Not Given Aspirin (Aspirin Chewable) 81 mg PO DAILY [facility] Last Admin: 02/25/18 09:10 Dose: 81 mg Heparin Sodium/Sodium Chloride (Heparin 21173 Units/250ml 1/2 Normal Saline) 25,000 units in 250 mls @ 11.097 mls/hr IV .[id number] PRN; Protocol PRN Reason: ADJUST RATE PER PROTOCOL Last Admin: 02/25/18 13:43 Dose: 12 units/kg/hr, 8.878 mls/hr Lisinopril (Zestril) 5 mg PO DAILY [facility] Last Admin: 02/25/18 09:10 Dose: 5 mg Lorazepam (Ativan) 1 mg IVP ONCE ONE Stop: 02/26/18 07:28 - Labs Labs: 02/25/18 07:22 02/25/18 07:22 APTT 59 SECONDS (21-34) H D 02/25/18 17:11
--- NOTE | 2018-02-26 07:34 | CP.PCM.CON ---
History of Present Illness - History of Present Illness History of Present Illness: CONSULT DICTATED LEFT HEMIPARESIS STROKE WORK UP PER ORDER ANTI PLATELETS PSG AN OP R/O CENTRAL SLEEP APNEA Past Patient History - Infectious Disease Hx of Infectious Diseases: None - Past Medical History & Family History Past Medical History?: Yes - Past Social History Smoking Status: Never Smoked - CARDIAC Hx Hypertension: Yes - PULMONARY Hx Pneumonia: Yes (CHILDHOOD) - NEUROLOGICAL Hx Neurological Disorder: Yes Hx Dizziness: Yes - HEENT Hx HEENT Problems: No - RENAL Hx Chronic Kidney Disease: No - ENDOCRINE/METABOLIC Hx Endocrine Disorders: No - HEMATOLOGICAL/ONCOLOGICAL Hx Blood Disorders: Yes Hx Shingles: Yes - INTEGUMENTARY Hx Dermatological Problems: No - MUSCULOSKELETAL/RHEUMATOLOGICAL Hx Fractures: Yes (LEFT HEEL) - GASTROINTESTINAL Hx Gall Bladder Disease: Yes - GENITOURINARY/GYNECOLOGICAL Hx Genitourinary Disorders: Yes Hx Hematuria: Yes Hx Prostate Problems: Yes - PSYCHIATRIC Hx Substance Use: No - SURGICAL HISTORY Hx Cholecystectomy: Yes - ANESTHESIA Hx Anesthesia: Yes Hx Anesthesia Reactions: No Hx Malignant Hyperthermia: No Meds Allergies/Adverse Reactions: Allergies Allergy/AdvReac Type Severity Reaction Status Date / Time shellfish derived AdvReac Severe NAUSEA Verified 03/14/17 17:53 - Medications Medications: Current Medications Albuterol/Ipratropium (Duoneb 3 Mg/0.5 Mg (3 Ml) Ud) 3 ml INH RQ6 [facility] Last Admin: 02/26/18 01:26 Dose: Not Given Aspirin (Aspirin Chewable) 81 mg PO DAILY [facility] Last Admin: 02/25/18 09:10 Dose: 81 mg Heparin Sodium/Sodium Chloride (Heparin 07450 Units/250ml 1/2 Normal Saline) 25,000 units in 250 mls @ 11.097 mls/hr IV .[id number] PRN; Protocol PRN Reason: ADJUST RATE PER PROTOCOL Last Admin: 02/25/18 13:43 Dose: 12 units/kg/hr, 8.878 mls/hr Lisinopril (Zestril) 5 mg PO DAILY [facility] Last Admin: 02/25/18 09:10 Dose: 5 mg Lorazepam (Ativan) 1 mg IVP ONCE ONE Stop: 02/26/18 07:28 Results - Vital Signs Recent Vital Signs: Last Vital Signs Temp 98.3 F 02/26/18 00:00 Pulse 97 H 02/26/18 00:00 Resp 20 02/26/18 00:00 BP 145/89 02/26/18 00:00 Pulse Ox 98 02/26/18 00:00 - Labs Result Diagrams: 02/25/18 07:22 02/25/18 07:22 Labs: Laboratory Results - last 24 hr 02/25/18 02/25/18 02/25/18 07:22 07:22 11:28 WBC 7.1 RBC 5.32 Hgb 15.4 Hct 44.9 MCV 84.5 MCH 29.0 MCHC 34.3 RDW 13.8 Plt Count 283 MPV 8.0 Neut % (Auto) 61.5 Lymph % (Auto) 24.2 [place] % (Auto) 10.0 Eos % (Auto) 3.4 Baso % (Auto) 0.9 Neut # (Auto) 4.4 Lymph # (Auto) 1.7 [place] # (Auto) 0.7 Eos # (Auto) 0.2 Baso # (Auto) 0.1 APTT 94 H D Sodium 139 Potassium 3.7 Chloride 103 Carbon Dioxide 26 Anion Gap 14 BUN 24 H Creatinine 1.6 H Est GFR ( Amer) 50 Est GFR (Non-Af Amer) 42 Random Glucose 116 H Calcium 8.6 Phosphorus 4.2 Magnesium 1.9 Total Bilirubin 0.7 AST 25 ALT 19 L D Alkaline Phosphatase 114 Total Protein 6.9 Albumin 3.5 Globulin 3.4 Albumin/Globulin Ratio 1.0 02/25/18 17:11 WBC RBC Hgb Hct MCV MCH MCHC RDW Plt Count MPV Neut % (Auto) Lymph % (Auto) [place] % (Auto) Eos % (Auto) Baso % (Auto) Neut # (Auto) Lymph # (Auto) [place] # (Auto) Eos # (Auto) Baso # (Auto) APTT 59 H D Sodium Potassium Chloride Carbon Dioxide Anion Gap BUN Creatinine Est GFR ( Amer) Est GFR (Non-Af Amer) Random Glucose Calcium Phosphorus Magnesium Total Bilirubin AST ALT Alkaline Phosphatase Total Protein Albumin Globulin Albumin/Globulin Ratio
[2018-02-26 08:25] LABS: PROLACTIN 14.8 ng/mL (3.7-17.9)
[2018-02-26 08:26] LABS: FREE T4 1.79 ng/dL (0.78-2.19)
--- NOTE | 2018-02-26 08:48 | CP.PCM.PN ---
Subjective - Date & Time of Evaluation Date of Evaluation: 02/26/18 Time of Evaluation: 08:46 - Subjective Subjective: Pt denies any slurred speech nor one sided weakness; Very SOB w/ just sitting out of bed. No CP, (+) dry cough but very minimal, no abd pain, no n/v Objective - Vital Signs/Intake and Output Vital Signs (last 24 hours): Temp Pulse Resp BP Pulse Ox 97.6 F 90 20 128/83 96 02/26/18 08:00 02/26/18 08:00 02/26/18 08:00 02/26/18 08:00 02/26/18 08:00 - Medications Medications: Current Medications Albuterol/Ipratropium (Duoneb 3 Mg/0.5 Mg (3 Ml) Ud) 3 ml INH RQ6 [facility] Last Admin: 02/26/18 01:26 Dose: Not Given Aspirin (Aspirin Chewable) 81 mg PO DAILY [facility] Last Admin: 02/25/18 09:10 Dose: 81 mg Heparin Sodium/Sodium Chloride (Heparin 76562 Units/250ml 1/2 Normal Saline) 25,000 units in 250 mls @ 11.097 mls/hr IV .[id number] PRN; Protocol PRN Reason: ADJUST RATE PER PROTOCOL Last Admin: 02/25/18 13:43 Dose: 12 units/kg/hr, 8.878 mls/hr Lisinopril (Zestril) 5 mg PO DAILY [facility] Last Admin: 02/25/18 09:10 Dose: 5 mg - Labs Labs: 02/25/18 07:22 02/25/18 07:22 APTT 59 SECONDS (21-34) H D 02/25/18 17:11 - Constitutional Appears: No Acute Distress - Eye Exam Eye Exam: Normal appearance - ENT Exam ENT Exam: Mucous Membranes Moist - Neck Exam Neck Exam: Full ROM. absent: Lymphadenopathy, Thyromegaly - Respiratory Exam Respiratory Exam: Clear to Ausculation Bilateral. absent: Rales, Rhonchi, Wheezes - Cardiovascular Exam Cardiovascular Exam: REGULAR RHYTHM, +S1, +S2. absent: Gallop, JVD, Murmur - GI/Abdominal Exam GI & Abdominal Exam: Soft. absent: Tenderness, Rebound - Extremities Exam Extremities Exam: Full ROM, Normal Capillary Refill. absent: Calf Tenderness, Joint Swelling, Pedal Edema Assessment and Plan - Assessment and Plan (Free Text) Assessment: Pulm Embolism; HTN, Hyperlipidemia ?? CVA Continue anticoagulation Change back to [facility]
--- NOTE | 2018-02-26 11:43 | VASCLAB ---
Date of service: 02/25/2018 PROCEDURE: Lower Extremity Venous Duplex Exam. HISTORY: concern for dvt; please eval PRIORS: None. TECHNIQUE: Bilateral common femoral, femoral, popliteal and posterior tibial, peroneal and great saphenous veins were evaluated. Flow was assessed with color Doppler, compressibility, assessment of phasic flow and augmentation response. Report prepared by Anshul Lira, ABBY, RVT FINDINGS: RIGHT: 1. Common Femoral Vein: 1.1. Compressibility - Partial: Thrombus - Acute : Flow - Reduced : Augmentation -Reduced: Reflux - None. 2. Femoral Vein: 2.1. Compressibility - Partial: Thrombus - Acute : Flow - Reduced : Augmentation -Reduced: Reflux - None. 3. Popliteal Vein: 3.1. Compressibility - Fully compressible: Thrombus - None : Flow - Phasic: Augmentation -Normal: Reflux - None. 4. Posterior Tibial Vein: 4.1. Compressibility - Fully compressible: Thrombus - None: Flow - Phasic: Augmentation -Normal: Reflux - None. 5. Peroneal Vein: 5.1. Compressibility - Fully compressible: Thrombus - None: Flow - Phasic: Augmentation -Normal: Reflux - None. 6. Great Saphenous Vein: 6.1. Compressibility - Fully compressible: Thrombus - None: Flow - Phasic: Augmentation - Normal: Reflux - None. LEFT: 1. Common Femoral Vein: 1.1. Compressibility - Fully compressible: Thrombus - None: Flow - Phasic: Augmentation -Normal: Reflux - None. 2. Femoral Vein: 2.1. Compressibility - Fully compressible: Thrombus - None: Flow - Phasic: Augmentation -Normal: Reflux - None. 3. Popliteal Vein: 3.1. Compressibility - Partial: Thrombus - Acute : Flow - Reduced : Augmentation -Reduced: Reflux - None. 4. Posterior Tibial Vein: 4.1. Compressibility - Fully compressible: Thrombus - None: Flow - Phasic: Augmentation -Normal: Reflux - None. 5. Peroneal Vein: 5.1. Compressibility - Fully compressible: Thrombus - None: Flow - Phasic: Augmentation -Normal: Reflux - None. 6. Great Saphenous Vein: 6.1. Compressibility - Fully compressible: Thrombus - None: Flow - Phasic: Augmentation - Normal: Reflux - None. OTHER FINDINGS: RN Kulwinder notified about the findings. Impression Right: Acute thrombosis of the right common femoral and femoral veins with severe reduction of the venous return. Left: Acute thrombosis of the left popliteal vein with severe reduction of the venous return.
--- NOTE | 2018-02-26 15:04 | CP.PCM.PN ---
Subjective - Date & Time of Evaluation Date of Evaluation: 02/26/18 Time of Evaluation: 10:20 - Subjective Subjective: Patient seen and examined at bedside, lying down comfortably. Afebrile and in no acute distress. dyspnea on exertion Patient on heparin drip to treat likely PE. Venous doppler scan of bilateral lower extremities (02/24/18): Right - Acute thrombosis of the right common femoral and femoral veins with severe reduction of the venous return. Left - Acute thrombosis of the left popliteal vein with severe reduction of the venous return. Carotid Doppler Study done today on 02/26/18 patient seen by neurology and Ordered CT Scan w/o contrast of head Will order malignancy workup for patient Objective - Vital Signs/Intake and Output Vital Signs (last 24 hours): Temp Pulse Resp BP Pulse Ox 97.6 F 98 H 20 134/87 96 02/26/18 08:00 02/26/18 12:00 02/26/18 08:00 02/26/18 09:12 02/26/18 08:00 - Medications Medications: Current Medications Albuterol/Ipratropium (Duoneb 3 Mg/0.5 Mg (3 Ml) Ud) 3 ml INH RQ6 [facility] Last Admin: 02/26/18 13:34 Dose: Not Given Amlodipine Besylate (Norvasc) 5 mg PO DAILY [facility] Last Admin: 02/26/18 09:13 Dose: 5 mg Aspirin (Aspirin Chewable) 81 mg PO DAILY [facility] Last Admin: 02/26/18 09:13 Dose: 81 mg Heparin Sodium/Sodium Chloride (Heparin 32265 Units/250ml 1/2 Normal Saline) 25,000 units in 250 mls @ 8.878 mls/hr IV .Q24H PRN; Protocol PRN Reason: ADJUST RATE PER PROTOCOL Lorazepam (Ativan) 1 mg IVP ONCE PRN PRN Reason: Agitation Last Admin: 02/26/18 13:42 Dose: 1 mg - Labs Labs: 02/25/18 07:22 02/25/18 07:22 APTT 59 SECONDS (21-34) H D 02/25/18 17:11 Assessment and Plan (1) Pulmonary embolism Status: Acute
[2018-02-26] MEDS: Heparin25000 units/250ml 1/2NS 25,000 UNITS/250 ML BAG IV PRN (15:07)
[2018-02-26] MEDS ORDERED: Heparin25000 units/250ml 1/2NS 25,000 UNITS/250 ML BAG IV PRN (15:15)
--- NOTE | 2018-02-26 16:11 | CP.PCM.PN ---
<Lynda Petit - Last Filed: 02/26/18 16:08> Subjective - Date & Time of Evaluation Date of Evaluation: 02/26/18 Time of Evaluation: 16:08 - Subjective Subjective: Cardiology Follow Up Patient seen and examined at bedside. Patient denied any chest pain, palpitations but did admit to some shortness of breath. Objective - Vital Signs/Intake and Output Vital Signs (last 24 hours): Temp Pulse Resp BP Pulse Ox 97.6 F 98 H 20 134/87 96 02/26/18 08:00 02/26/18 12:00 02/26/18 08:00 02/26/18 09:12 02/26/18 08:00 Intake and Output: 02/26/18 02/26/18 06:59 18:59 Intake Total 247 Balance 247 - Medications Medications: Current Medications Albuterol/Ipratropium (Duoneb 3 Mg/0.5 Mg (3 Ml) Ud) 3 ml INH RQ6 [facility] Last Admin: 02/26/18 13:34 Dose: Not Given Amlodipine Besylate (Norvasc) 5 mg PO DAILY [facility] Last Admin: 02/26/18 09:13 Dose: 5 mg Aspirin (Aspirin Chewable) 81 mg PO DAILY [facility] Last Admin: 02/26/18 09:13 Dose: 81 mg Heparin Sodium/Sodium Chloride (Heparin 68650 Units/250ml 1/2 Normal Saline) 25,000 units in 250 mls @ 8.878 mls/hr IV .Q24H PRN; Protocol PRN Reason: ADJUST RATE PER PROTOCOL Lorazepam (Ativan) 1 mg IVP ONCE PRN PRN Reason: Agitation Last Admin: 02/26/18 13:42 Dose: 1 mg - Labs Labs: 02/25/18 07:22 02/25/18 07:22 APTT 59 SECONDS (21-34) H D 02/25/18 17:11 - Constitutional Appears: No Acute Distress - Head Exam Head Exam: NORMAL INSPECTION, NORMOCEPHALIC - Eye Exam Eye Exam: EOMI, PERRL Pupil Exam: NORMAL ACCOMODATION - ENT Exam ENT Exam: Mucous Membranes Moist - Respiratory Exam Respiratory Exam: NORMAL BREATHING PATTERN. absent: Decreased Breath Sounds, Rales, Rhonchi, Wheezes - Cardiovascular Exam Cardiovascular Exam: +S1, +S2 - GI/Abdominal Exam GI & Abdominal Exam: Soft, Normal Bowel Sounds. absent: Tenderness, Mass - Extremities Exam Extremities Exam: Normal Inspection. absent: Pedal Edema, Tenderness - Neurological Exam Neurological Exam: Alert, Awake, Oriented x3 - Psychiatric Exam Psychiatric exam: Normal Affect, Normal Mood - Skin Skin Exam: Dry, Intact, Normal Color, Warm Assessment and Plan - Assessment and Plan (Free Text) Plan: Dyspnea, Hypoxia on admission Pulmonary Embolism Bilateral DVTs Imaging: - EKG: sinus tachy at 117 BPM, RBBB noted - Chest CT w/o contrast: unremarkable - V/Q Scan (performed in light of renal function): High probability ventilation perfusion scan for pulmonary embolism. - Venous dopplers ordered of bilateral lower extremities: Right - Acute thrombosis of the right common femoral and femoral veins with severe reduction of the venous return. Left - Acute thrombosis of the left popliteal vein with severe reduction of the venous return. - Prior ECHO 01/2017 - normal LVEF - ECHO: LVEF 45-50% systolic dysfunction, severe pulm HTN Management: - Well's Score of 6 - Heparin drip started, PE management as per pulmonary - Hypercoagulability workup ordered - Recommend heme/onc eval for possible malignancy? Chest Pain - ACS ruled out Imaging: - EKG: sinus tachy at 117 BPM, RBBB noted Management: - SANDRA x 3 negative - Continue with ASA 81 PO daily Hypertension - Continue with ASA, Norvasc - Encourage heart healthy, low salt diet Case discussed with Lynda Roy DO, PGY2 <Osei Clemens - Last Filed: 02/26/18 20:18> Objective - Vital Signs/Intake and Output Vital Signs (last 24 hours): Temp Pulse Resp BP Pulse Ox 97.4 F L 100 H 20 132/87 96 02/26/18 16:20 02/26/18 16:20 02/26/18 16:20 02/26/18 16:20 02/26/18 16:20 Intake and Output: 02/26/18 02/27/18 18:59 06:59 Intake Total 247 Balance 247 - Medications Medications: Current Medications Albuterol/Ipratropium (Duoneb 3 Mg/0.5 Mg (3 Ml) Ud) 3 ml INH RQ6 [facility] Last Admin: 02/26/18 13:34 Dose: Not Given Amlodipine Besylate (Norvasc) 5 mg PO DAILY [facility] Last Admin: 02/26/18 09:13 Dose: 5 mg Aspirin (Aspirin Chewable) 81 mg PO DAILY [facility] Last Admin: 02/26/18 09:13 Dose: 81 mg Heparin Sodium/Sodium Chloride (Heparin 03526 Units/250ml 1/2 Normal Saline) 25,000 units in 250 mls @ 8.878 mls/hr IV .Q24H PRN; Protocol PRN Reason: ADJUST RATE PER PROTOCOL Last Admin: 02/26/18 17:40 Dose: 12 units/kg/hr, 8.878 mls/hr Lorazepam (Ativan) 1 mg IVP ONCE PRN PRN Reason: Agitation Last Admin: 02/26/18 13:42 Dose: 1 mg - Labs Labs: 02/26/18 16:52 02/25/18 07:22 APTT 53 SECONDS (21-34) H D 02/26/18 16:52 Assessment and Plan - Assessment and Plan (Free Text) Plan: Patient seen and evaluated personally by me Plan of care d/w the resident and as documented
--- NOTE | 2018-02-26 16:21 | CT ---
Date of service: 02/26/2018 PROCEDURE: CT HEAD WITHOUT CONTRAST. HISTORY: CVA COMPARISON: None available. TECHNIQUE: Axial computed tomography images were obtained through the head/brain without intravenous contrast. Radiation dose: Total exam DLP = 1242.77 mGy-cm. This CT exam was performed using one or more of the following dose reduction techniques: Automated exposure control, adjustment of the mA and/or kV according to patient size, and/or use of iterative reconstruction technique. FINDINGS: HEMORRHAGE: No intracranial hemorrhage. BRAIN: Good corticomedullary differentiation is seen. Reiterated diffuse cerebral atrophy and chronic microangiopathy. No suspicious extra-axial fluid collection is identified and the midline brain anatomy appears grossly nonfocal as imaged. No mass effect identified. VENTRICLES: Unremarkable. No hydrocephalus. CALVARIUM: Unremarkable. PARANASAL SINUSES: Maxillary sinus polyps or cysts again suggested, minimal at the right maxillary sinus. MASTOID AIR CELLS: Unremarkable as visualized. No inflammatory changes. OTHER FINDINGS: None. IMPRESSION: No definitive acute intracranial findings. Follow-up CT or MRI is recommended if brain infarction is clinically suspected. Stable age related neuro degenerative changes are appreciated which appear age-appropriate.
[2018-02-26 17:00] LABS: HEMOGLOBIN 14.3 g/dL (12.0-18.0); MEAN CELL VOLUME 85.3 fL (80.0-94.0); MEAN CORPUSCULAR HGB CONC 32.8 g/dL (33.0-37.0); MEAN PLATELET VOLUME 7.8 fL (7.2-11.7); RBC 5.11 Mil/uL (4.40-5.90); RED CELL DISTRIBUTION WIDTH 13.4 % (11.5-14.5); WHITE BLOOD COUNT 5.3 K/uL (4.8-10.8)
--- NOTE | 2018-02-26 17:58 | CARD ---
APPROVED REPORT Date of service: 02/23/2018 EKG Measurement Heart [id number] <Conclusion> Sinus tachycardia Left axis deviation Right bundle branch block Abnormal ECG
--- NOTE | 2018-02-26 19:02 | CON ---
DATE: 02/26/2018 ATTENDING PHYSICIAN: Nathanael Hughes MD. LOCATION: The patient's room number 563 bed B. REASON FOR CONSULTATION: Previous stroke. CHIEF COMPLAINT: The patient was brought into [facility] with history of shortness of breath. From neurological point of view I was called in to evaluate him for his history of stroke process in the past. 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 This has been worse that decided him to come to the hospital for further evaluation. He is also complaining of chest pain radiating to his left shoulder. The pain is restricting his movement. He had no similar episodes in the past. PAST MEDICAL HISTORY: Hypertension, dyslipidemia, heart failure, benign prostate hypertrophy. PAST SURGICAL HISTORY: History of cholecystectomy in the past. PERSONAL HISTORY: Denies smoking or alcohol use. MEDICATIONS: Aspirin, Lasix, Zestril, Crestor, heparin subcu and DuoNeb. ALLERGIES: SHELLFISH. SOCIAL HISTORY: Denies smoking or alcohol use. REVIEW OF SYSTEMS: A 12-point system being reviewed. From neuro, stroke process. PHYSICAL EXAMINATION: VITAL SIGNS: Blood pressure 145/89, mean artery pressure 107, respiratory rate 18, temperature 98.3, pulse rate is 87, regular. NECK: Supple. No carotid bruits. HEART: Sounds regular. CHEST: Fair air entry. EXTREMITIES: No edema in legs. Left leg seems to be slightly externally rotated to compare with the right side. NEUROLOGIC: Mental status examination: he is awake, alert and or to person, place and time. Speech is clear. Naming, repetition, fluency, comprehension all within normal. Cranial nerve examination, Visual field intact. Pupils reactive to light. Extraocular movements are normal. No nystagmus. No facial sensory deficit. There is a facial asymmetry manifesting with flattening of the left nasolabial fold.. Hearing is normal. Tongue is midline. Good gag. Motor examination on outstretched hand with eyes closed, no drift noted. Power is symmetric on either side. Deep tendon reflexes biceps, brachialis, triceps 1+, left knee 1+, right knee absent, both ankles are absent. Plantars are upgoing on his left side, right side was downgoing. Sensory examination grossly intact. Coordination: Mild [id number] dysmetria noted on his left side to compare with the right side. Gait is deferred at this time. CONCLUSION: As per neurological examination, Mr. Tate Millan presenting with mild left hemiparesis consistent with right subcortical dysfunction. Considering his risk factors of heart failure could be related to the small vessel disease. There is factors of his age, sex, heart failure, the patient should have a polysomnogram to rule out central sleep apnea. That could be done as outpatient. WORKUP: WBC 7.1, hemoglobin 15.4, hematocrit. 44.9, platelet 283, PTT 59. Sodium 139, potassium 3.7, chloride 103, bicarbonate 26, BUN 24, creatinine 1.6, random glucose 116. RECOMMENDATIONS: 1. MRI of the brain to rule out stroke process. 2. Carotid Doppler to assess the stenosis. 3. EEG to rule out any paroxysmal activities or focal slowing. 4. Blood workup as per the order. 5. Agree with antiplatelets with low dose of statin is lipids are normal and angiotensin receptor blockers. The patient queries have been well discussed and the patient also scheduled to have a polysomnogram which can be done as outpatient to rule out central sleep apnea. Augustus Hardwick MD
[2018-02-27] MEDS: Albuterol-Ipratrop 3 mg / 0.5 (3 ml) UD INH SCH ×4 (01:00→19:54)
[2018-02-27 09:26] LABS: HEMOGLOBIN 14.4 g/dL (12.0-18.0); MEAN CELL VOLUME 83.9 fL (80.0-94.0); MEAN CORPUSCULAR HEMOGLOBIN 28.8 pg (27.0-31.0); MEAN CORPUSCULAR HGB CONC 34.3 g/dL (33.0-37.0); MEAN PLATELET VOLUME 8.1 fL (7.2-11.7); RBC 4.99 Mil/uL (4.40-5.90); RED CELL DISTRIBUTION WIDTH 13.5 % (11.5-14.5); WHITE BLOOD COUNT 5.5 K/uL (4.8-10.8)
--- NOTE | 2018-02-27 12:40 | VASCLAB ---
Date of service: 02/26/2018 PROCEDURE: Carotid Duplex Exam. HISTORY: Left hemiparesis. COMPARISON: None available. TECHNIQUE: Grayscale and duplex Doppler evaluation of the cervical carotid and vertebral arteries were performed. The common carotid, carotid bifurcations and cervical Internal Carotid Artery (ICA) and proximal External Carotid Artery (ECA) were evaluated. The vertebral arteries were evaluated for gross patency and flow direction. Report prepared by Anshul Lira, BS, RVT FINDINGS: RIGHT CAROTID ARTERIES: 1. Common Carotid Artery: No significant focal plaque formation of the right common carotid artery. Maximum Peak Systolic velocity: 59 cm/sec: End-diastolic velocity 16 cm/sec. 2. Carotid Bifurcation: plaque formation. Maximum Peak Systolic velocity: 58 cm/sec: End-diastolic velocity 16 cm/sec. 3. Internal Carotid Artery: Plaque description: 3.1. Proximal Segment: Peak systolic velocity 49 cm/sec: End-diastolic velocity 17 cm/sec - % stenosis 0-15% 3.2. Middle Segment: Peak systolic velocity 81 cm/sec: End-diastolic velocity 26 cm/sec - % stenosis 0-15% 3.3. Distal Segment: Peak systolic velocity 105 cm/sec: End-diastolic velocity 26 cm/sec - % stenosis 0-15% 4. External Carotid Artery: No significant focal plaque formation. Peak systolic velocity 107 cm/sec 5. ICA/CCA Ratio: 1.8 LEFT CAROTID ARTERIES: 1. Common Carotid Artery: No significant focal plaque formation of the left common carotid artery. Maximum Peak Systolic velocity: 62 cm/sec: End-diastolic velocity 12 cm/sec. 2. Carotid Bifurcation: plaque formation. Maximum Peak Systolic velocity: 47 cm/sec: End-diastolic velocity 11 cm/sec. 3. Internal Carotid Artery: Plaque description: 3.1. Proximal Segment: Peak systolic velocity 45 cm/sec: End-diastolic velocity 15 cm/sec - % stenosis 0-15% 3.2. Middle Segment: Peak systolic velocity 90 cm/sec: End-diastolic velocity 27 cm/sec - % stenosis 0-15% 3.3. Distal Segment: Peak systolic velocity 76 cm/sec: End-diastolic velocity 21 cm/sec - % stenosis 0-15% 4. External Carotid Artery: No significant focal plaque formation. Peak systolic velocity 139 cm/sec 5. ICA/CCA Ratio: 1.4 VERTEBRAL ARTERIES: 1. Right Vertebral Artery: The right vertebral artery flow direction is antegrade. 2. Left Vertebral Artery: The left vertebral artery flow direction is antegrade. OTHER FINDINGS: 1. Right Brachial Blood pressure: 130 mmHg. 2. Left Brachial Blood pressure: 126 mmHg. 3. No atherosclerotic calcification present IMPRESSION: RIGHT: Duplex scan does not suggest hemodynamically significant stenosis of the right extracranial carotid arteries. LEFT: Duplex scan does not suggest hemodynamically significant stenosis of the left extracranial carotid arteries.
--- NOTE | 2018-02-27 12:53 | PN ---
DATE: 02/27/2018 TIME OF EVALUATION: 07:05 a.m. SUBJECTIVE: The patient is comfortable, lying down. He is getting heparin for his pulmonary embolism. No focal weakness. No new weakness. No new dizziness, speech impairment. Examination which is unchanged to compare my previous examination. The patient's condition being reviewed, extensively discussed with the retail sales assistant. As per my recommendation, CT of the head was done, which does not show any acute pathology. RECOMMENDATIONS: Continue the present management for his pulmonary embolism. When medically stable, the patient should have MRI of the brain to assess his stroke process. Continue the present management as recommended. Augustus Hardwick MD
--- NOTE | 2018-02-27 17:51 | CP.PCM.PN ---
Subjective - Date & Time of Evaluation Date of Evaluation: 02/27/18 Time of Evaluation: 10:45 - Subjective Subjective: atient seen and examined at bedside, sitting down comfortably. Patient reports SOB when getting up to use the bathroom. Reports no SOB when sitting in chair but mild discomfort. Denies cough, chest pain, fever. Patient on heparin drip to treat likely PE. Venous doppler scan of bilateral lower extremities (02/24/18): Right - Acute thrombosis of the right common femoral and femoral veins with severe reduction of the venous return. Left - Acute thrombosis of the left popliteal vein with severe reduction of the venous return. Carotid Doppler Study (02/26/18): Waiting for official read CT Scan w/o contrast of head (02/26/18): No definitive acute intracranial findings. F/u CT or MRI is recommended if brain infarction is clinically suspected. Stable age related neuro degenerative changes are appreciated which are age appropriate. Ordered malignancy workup for patient. will follow up on resuts Consider switching to Eliquis for anticoagulation if okay per rate and cost analyst Dr. Clemens Objective - Vital Signs/Intake and Output Vital Signs (last 24 hours): Temp Pulse Resp BP Pulse Ox 97.9 F 98 H 20 130/82 93 L 02/27/18 07:57 02/27/18 16:00 02/27/18 07:57 02/27/18 07:57 02/27/18 07:57 - Medications Medications: Current Medications Albuterol/Ipratropium (Duoneb 3 Mg/0.5 Mg (3 Ml) Ud) 3 ml INH RQ6 [facility] Last Admin: 02/27/18 13:25 Dose: Not Given Amlodipine Besylate (Norvasc) 5 mg PO DAILY [facility] Last Admin: 02/27/18 10:00 Dose: 5 mg Aspirin (Aspirin Chewable) 81 mg PO DAILY [facility] Last Admin: 02/27/18 09:58 Dose: 81 mg Heparin Sodium/Sodium Chloride (Heparin 14390 Units/250ml 1/2 Normal Saline) 25,000 units in 250 mls @ 8.878 mls/hr IV .Q24H PRN; Protocol PRN Reason: ADJUST RATE PER PROTOCOL Last Admin: 02/26/18 17:40 Dose: 12 units/kg/hr, 8.878 mls/hr Lorazepam (Ativan) 1 mg IVP ONCE PRN PRN Reason: Agitation Last Admin: 02/26/18 13:42 Dose: 1 mg - Labs Labs: 02/27/18 08:58 02/25/18 07:22 APTT 68 SECONDS (21-34) H D 02/27/18 08:58 Assessment and Plan (1) Pulmonary embolism Status: Acute
--- NOTE | 2018-02-27 19:00 | CP.PCM.PN ---
Subjective - Date & Time of Evaluation Date of Evaluation: 02/27/18 Time of Evaluation: 18:57 - Subjective Subjective: S: Feels better. No SOB. No chestpain. No fever. Objective - Vital Signs/Intake and Output Vital Signs (last 24 hours): Temp Pulse Resp BP Pulse Ox 97.9 F 98 H 20 130/82 93 L 02/27/18 07:57 02/27/18 16:00 02/27/18 07:57 02/27/18 07:57 02/27/18 07:57 - Medications Medications: Current Medications Albuterol/Ipratropium (Duoneb 3 Mg/0.5 Mg (3 Ml) Ud) 3 ml INH RQ6 [facility] Last Admin: 02/27/18 13:25 Dose: Not Given Amlodipine Besylate (Norvasc) 5 mg PO DAILY [facility] Last Admin: 02/27/18 10:00 Dose: 5 mg Aspirin (Aspirin Chewable) 81 mg PO DAILY [facility] Last Admin: 02/27/18 09:58 Dose: 81 mg Heparin Sodium/Sodium Chloride (Heparin 36145 Units/250ml 1/2 Normal Saline) 25,000 units in 250 mls @ 8.878 mls/hr IV .Q24H PRN; Protocol PRN Reason: ADJUST RATE PER PROTOCOL Last Admin: 02/26/18 17:40 Dose: 12 units/kg/hr, 8.878 mls/hr Lorazepam (Ativan) 1 mg IVP ONCE PRN PRN Reason: Agitation Last Admin: 02/26/18 13:42 Dose: 1 mg - Labs Labs: 02/27/18 08:58 02/25/18 07:22 APTT 68 SECONDS (21-34) H D 02/27/18 08:58 - Constitutional Appears: No Acute Distress - Head Exam Head Exam: NORMAL INSPECTION - ENT Exam ENT Exam: Normal Exam - Neck Exam Neck Exam: Normal Inspection - Respiratory Exam Respiratory Exam: NORMAL BREATHING PATTERN - Cardiovascular Exam Cardiovascular Exam: REGULAR RHYTHM - GI/Abdominal Exam GI & Abdominal Exam: Soft - Rectal Exam Rectal Exam: Deferred - Extremities Exam Extremities Exam: Tenderness - Neurological Exam Neurological Exam: Awake Assessment and Plan (1) Hypoxia Status: Acute (2) PVD (peripheral vascular disease) Status: Acute - Assessment and Plan (Free Text) Assessment: A/p: medications reviewed. D/c heparin. Start on Eliquis
--- NOTE | 2018-02-27 22:38 | CP.PCM.PN ---
Subjective - Date & Time of Evaluation Date of Evaluation: 02/27/18 Time of Evaluation: 20:25 - Subjective Subjective: Patient seen and examined at bedside. Patient denied any chest pain, palpitations but did admit to some shortness of breath. Objective - Medications Medications: Current Medications Albuterol/Ipratropium (Duoneb 3 Mg/0.5 Mg (3 Ml) Ud) 3 ml INH RQ6 [facility] Last Admin: 02/26/18 13:34 Dose: Not Given Amlodipine Besylate (Norvasc) 5 mg PO DAILY [facility] Last Admin: 02/26/18 09:13 Dose: 5 mg Aspirin (Aspirin Chewable) 81 mg PO DAILY [facility] Last Admin: 02/26/18 09:13 Dose: 81 mg Heparin Sodium/Sodium Chloride (Heparin 08857 Units/250ml 1/2 Normal Saline) 25,000 units in 250 mls @ 8.878 mls/hr IV .Q24H PRN; Protocol PRN Reason: ADJUST RATE PER PROTOCOL Lorazepam (Ativan) 1 mg IVP ONCE PRN PRN Reason: Agitation Last Admin: 02/26/18 13:42 Dose: 1 mg - Labs Labs: 02/25/18 07:22 02/25/18 07:22 APTT 59 SECONDS (21-34) H D 02/25/18 17:11 - Constitutional Appears: No Acute Distress - Head Exam Head Exam: NORMAL INSPECTION, NORMOCEPHALIC - Eye Exam Eye Exam: EOMI, PERRL Pupil Exam: NORMAL ACCOMODATION - ENT Exam ENT Exam: Mucous Membranes Moist - Respiratory Exam Respiratory Exam: NORMAL BREATHING PATTERN. absent: Decreased Breath Sounds, Rales, Rhonchi, Wheezes - Cardiovascular Exam Cardiovascular Exam: +S1, +S2 - GI/Abdominal Exam GI & Abdominal Exam: Soft, Normal Bowel Sounds. absent: Tenderness, Mass - Extremities Exam Extremities Exam: Normal Inspection. absent: Pedal Edema, Tenderness - Neurological Exam Neurological Exam: Alert, Awake, Oriented x3 - Psychiatric Exam Psychiatric exam: Normal Affect, Normal Mood - Skin Skin Exam: Dry, Intact, Normal Color, Warm Assessment and Plan - Assessment and Plan (Free Text) Plan: Dyspnea, Hypoxia on admission Pulmonary Embolism Bilateral DVTs Imaging: - EKG: sinus tachy at 117 BPM, RBBB noted - Chest CT w/o contrast: unremarkable - V/Q Scan (performed in light of renal function): High probability ventilation perfusion scan for pulmonary embolism. - Venous dopplers ordered of bilateral lower extremities: Right - Acute thrombosis of the right common femoral and femoral veins with severe reduction of the venous return. Left - Acute thrombosis of the left popliteal vein with severe reduction of the venous return. - Prior ECHO 01/2017 - normal LVEF - ECHO: LVEF 45-50% systolic dysfunction, severe pulm HTN Management: - Well's Score of 6 - Heparin drip started, PE management as per pulmonary - Hypercoagulability workup ordered - Recommend heme/onc eval for possible malignancy? Chest Pain - ACS ruled out Imaging: - EKG: sinus tachy at 117 BPM, RBBB noted Management: - SANDRA x 3 negative - Continue with ASA 81 PO daily Hypertension - Continue with ASA, Norvasc - Encourage heart healthy, low salt diet Recommend AC and Malidnancy work up Objective - Vital Signs/Intake and Output Vital Signs (last 24 hours): Temp Pulse Resp BP Pulse Ox 97.9 F 98 H 20 130/82 93 L 02/27/18 07:57 02/27/18 16:00 02/27/18 07:57 02/27/18 07:57 02/27/18 07:57 Intake and Output: 02/27/18 02/28/18 18:59 06:59 Intake Total 416 Output Total 300 Balance 116 - Medications Medications: Current Medications Albuterol/Ipratropium (Duoneb 3 Mg/0.5 Mg (3 Ml) Ud) 3 ml INH RQ6 [facility] Last Admin: 02/27/18 19:54 Dose: 3 ml Amlodipine Besylate (Norvasc) 5 mg PO DAILY [facility] Last Admin: 02/27/18 10:00 Dose: 5 mg Apixaban (Eliquis) 5 mg PO BID [facility] Last Admin: 02/27/18 20:55 Dose: 5 mg Aspirin (Aspirin Chewable) 81 mg PO DAILY [facility] Last Admin: 02/27/18 09:58 Dose: 81 mg Lorazepam (Ativan) 1 mg IVP ONCE PRN PRN Reason: Agitation Last Admin: 02/26/18 13:42 Dose: 1 mg - Labs Labs: 02/27/18 08:58 02/25/18 07:22 APTT 68 SECONDS (21-34) H D 02/27/18 08:58
[2018-02-28] MEDS: Albuterol-Ipratrop 3 mg / 0.5 (3 ml) UD INH SCH ×4 (01:09→20:40)
--- NOTE | 2018-02-28 08:09 | CP.PCM.PN ---
Subjective - Date & Time of Evaluation Date of Evaluation: 02/28/18 Time of Evaluation: 08:00 - Subjective Subjective: Pt has cough/ sneezing at night; mucus is clear/ whitish No CP, SOB w/ any effort, no edema, no diarrhea, no n/v, no dysurai Objective - Vital Signs/Intake and Output Vital Signs (last 24 hours): Temp Pulse Resp BP Pulse Ox 97.9 F 86 20 137/83 92 L 02/28/18 07:00 02/28/18 07:00 02/28/18 07:00 02/28/18 07:00 02/28/18 07:00 Intake and Output: 02/28/18 02/28/18 06:59 18:59 Intake Total 416 Output Total 500 Balance -84 - Medications Medications: Current Medications Albuterol/Ipratropium (Duoneb 3 Mg/0.5 Mg (3 Ml) Ud) 3 ml INH RQ6 [facility] Last Admin: 02/28/18 07:58 Dose: 3 ml Amlodipine Besylate (Norvasc) 5 mg PO DAILY [facility] Last Admin: 02/27/18 10:00 Dose: 5 mg Apixaban (Eliquis) 5 mg PO BID [facility] Last Admin: 02/27/18 20:55 Dose: 5 mg Aspirin (Aspirin Chewable) 81 mg PO DAILY [facility] Last Admin: 02/27/18 09:58 Dose: 81 mg Lorazepam (Ativan) 1 mg IVP ONCE PRN PRN Reason: Agitation Last Admin: 02/26/18 13:42 Dose: 1 mg Promethazine HCl/Dextromethorphan (Phenergan Dm Syrup) 10 ml PO HS [facility] - Labs Labs: 02/27/18 08:58 02/25/18 07:22 APTT 68 SECONDS (21-34) H D 02/27/18 08:58 - Constitutional Appears: No Acute Distress - Eye Exam Eye Exam: Normal appearance - ENT Exam ENT Exam: Mucous Membranes Dry. absent: Normal Oropharynx - Neck Exam Neck Exam: Full ROM. absent: Lymphadenopathy, Tenderness - Respiratory Exam Respiratory Exam: Decreased Breath Sounds. absent: Rales, Rhonchi, Wheezes - Cardiovascular Exam Cardiovascular Exam: REGULAR RHYTHM, +S1, +S2. absent: Gallop, JVD - GI/Abdominal Exam GI & Abdominal Exam: Soft. absent: Tenderness, Rebound - Extremities Exam Extremities Exam: Full ROM, Normal Capillary Refill. absent: Calf Tenderness, Joint Swelling, Pedal Edema Assessment and Plan - Assessment and Plan (Free Text) Assessment: Ac DVT/ PE; Gen Debility HTN, Hyperlipidemia Cont meds/ supportive care Does PT
--- NOTE | 2018-02-28 09:39 | PN ---
DATE: 02/28/2018 TIME OF EVALUATION: 07:10 a.m. NEUROLOGIC PROBLEM: Right subcortical dysfunction manifesting with left hemiparesis. The patient on anticoagulation for his pulmonary embolism. PHYSICAL EXAMINATION: VITAL SIGNS: Blood pressure 128/80, mean arterial pressure of 96, respiratory rate 18, temperature 98 degrees Fahrenheit. The patient is sleepy, arousable on calling his first name. Moves all four extremities without any discomfort. Examination is unchanged to compare with my previous examination. The patient is neurologically stable and we will follow while he is in the hospital. Continue the anticoagulation as recommended by fuel cell repairer. Augustus Hardwick MD
--- NOTE | 2018-02-28 10:40 | CP.PCM.PN ---
<Lynda Petit - Last Filed: 02/28/18 10:37> Subjective - Date & Time of Evaluation Date of Evaluation: 02/28/18 Time of Evaluation: 10:37 - Subjective Subjective: Cardiology Follow Up Patient seen and examined at bedside. Patient denied any chest pain, palpitations but did admit to some shortness of breath. Objective - Vital Signs/Intake and Output Vital Signs (last 24 hours): Temp Pulse Resp BP Pulse Ox 97.9 F 104 H 20 128/77 92 L 02/28/18 07:00 02/28/18 09:11 02/28/18 07:00 02/28/18 09:11 02/28/18 07:00 Intake and Output: 02/28/18 02/28/18 06:59 18:59 Intake Total 416 Output Total 500 Balance -84 - Medications Medications: Current Medications Albuterol/Ipratropium (Duoneb 3 Mg/0.5 Mg (3 Ml) Ud) 3 ml INH RQ6 [facility] Last Admin: 02/28/18 07:58 Dose: 3 ml Amlodipine Besylate (Norvasc) 5 mg PO DAILY [facility] Last Admin: 02/28/18 09:10 Dose: 5 mg Apixaban (Eliquis) 10 mg PO BID [facility] Stop: 03/07/18 18:01 Aspirin (Aspirin Chewable) 81 mg PO DAILY [facility] Last Admin: 02/28/18 09:10 Dose: 81 mg Lorazepam (Ativan) 1 mg IVP ONCE PRN PRN Reason: Agitation Last Admin: 02/26/18 13:42 Dose: 1 mg Promethazine HCl/Dextromethorphan (Phenergan Dm Syrup) 10 ml PO HS [facility] - Labs Labs: 02/27/18 08:58 02/25/18 07:22 APTT 31 SECONDS (21-34) D 02/28/18 08:33 - Additional Findings Additional findings: - Head Exam Head Exam: NORMAL INSPECTION, NORMOCEPHALIC - Eye Exam Eye Exam: EOMI, PERRL Pupil Exam: NORMAL ACCOMODATION - ENT Exam ENT Exam: Mucous Membranes Moist - Respiratory Exam Respiratory Exam: NORMAL BREATHING PATTERN. absent: Decreased Breath Sounds, Rales, Rhonchi, Wheezes - Cardiovascular Exam Cardiovascular Exam: +S1, +S2 - GI/Abdominal Exam GI & Abdominal Exam: Soft, Normal Bowel Sounds. absent: Tenderness, Mass - Extremities Exam Extremities Exam: Normal Inspection. absent: Pedal Edema, Tenderness - Neurological Exam Neurological Exam: Alert, Awake, Oriented x3 - Psychiatric Exam Psychiatric exam: Normal Affect, Normal Mood - Skin Skin Exam: Dry, Intact, Normal Color, Warm Assessment and Plan - Assessment and Plan (Free Text) Plan: Dyspnea, Hypoxia on admission Pulmonary Embolism Bilateral DVTs Imaging: - EKG: sinus tachy at 117 BPM, RBBB noted - Chest CT w/o contrast: unremarkable - V/Q Scan (performed in light of renal function): High probability ventilation perfusion scan for pulmonary embolism. - Venous dopplers ordered of bilateral lower extremities: Right - Acute thrombosis of the right common femoral and femoral veins with severe reduction of the venous return. Left - Acute thrombosis of the left popliteal vein with severe reduction of the venous return. 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 Clemens, Lynda Petit DO, PGY2 <Osei Clemens - Last Filed: 03/01/18 08:30> Objective - Vital Signs/Intake and Output Vital Signs (last 24 hours): Temp Pulse Resp BP Pulse Ox 97.7 F 84 20 110/69 99 03/01/18 07:31 18 07:45 03/01/18 07:31 03/01/18 07:31 03/01/18 07:31 - Medications Medications: Current Medications Albuterol/Ipratropium (Duoneb 3 Mg/0.5 Mg (3 Ml) Ud) 3 ml INH RQ6 [facility] Last Admin: 03/01/18 08:28 Dose: 3 ml Amlodipine Besylate (Norvasc) 5 mg PO DAILY [facility] Last Admin: 02/28/18 09:10 Dose: 5 mg Apixaban (Eliquis) 10 mg PO BID [facility] Stop: 03/07/18 18:01 Last Admin: 02/28/18 18:06 Dose: 10 mg Aspirin (Aspirin Chewable) 81 mg PO DAILY [facility] Last Admin: 02/28/18 09:10 Dose: 81 mg Lorazepam (Ativan) 1 mg IVP ONCE PRN PRN Reason: Agitation Last Admin: 02/26/18 13:42 Dose: 1 mg Lorazepam (Ativan) 1 mg IVP ONCE PRN PRN Reason: Agitation Last Admin: 02/28/18 13:05 Dose: 1 mg Pantoprazole Sodium (Protonix Ec Tab) 40 mg PO DAILY [facility] Promethazine HCl/Dextromethorphan (Phenergan Dm Syrup) 10 ml PO HS [facility] Last Admin: 02/28/18 22:00 Dose: 10 ml - Labs Labs: 02/27/18 08:58 02/25/18 07:22 APTT 31 SECONDS (21-34) D 02/28/18 08:33 Assessment and Plan - Assessment and Plan (Free Text) Plan: Patient seen and evaluated personally by me Plan of care d/w the resident and as documented
--- NOTE | 2018-02-28 13:38 | CP.PCM.PN ---
Subjective - Date & Time of Evaluation Date of Evaluation: 02/28/18 - Subjective Subjective: Patient seen and examined at bedside, sitting down comfortably. Patient reports SOB when getting up to use the bathroom. Reports no SOB when sitting in chair but mild discomfort. Denies cough, chest pain, fever. Patient on heparin drip to treat likely PE. Venous doppler scan of bilateral lower extremities (02/24/18): Right - Acute thrombosis of the right common femoral and femoral veins with severe reduction of the venous return. Left - Acute thrombosis of the left popliteal vein with severe reduction of the venous return. Carotid Doppler Study (02/26/18): No significant stenosis of the extracranial carotid arteries bilaterally CT Scan w/o contrast of head (02/26/18): No definitive acute intracranial findings. F/u CT or MRI is recommended if brain infarction is clinically suspected. Stable age related neuro degenerative changes are appreciated which are age appropriate. Ordered malignancy workup for patient. will follow up on results Patient on Eliquis 10 mg BID for anticoagulation Objective - Vital Signs/Intake and Output Vital Signs (last 24 hours): Temp Pulse Resp BP Pulse Ox 97.9 F 91 H 20 128/77 92 L 02/28/18 07:00 02/28/18 12:00 02/28/18 07:00 02/28/18 09:11 02/28/18 07:00 Intake and Output: 02/28/18 02/28/18 06:59 18:59 Intake Total 416 Output Total 500 Balance -84 - Medications Medications: Current Medications Albuterol/Ipratropium (Duoneb 3 Mg/0.5 Mg (3 Ml) Ud) 3 ml INH RQ6 [facility] Last Admin: 02/28/18 07:58 Dose: 3 ml Amlodipine Besylate (Norvasc) 5 mg PO DAILY [facility] Last Admin: 02/28/18 09:10 Dose: 5 mg Apixaban (Eliquis) 10 mg PO BID [facility] Stop: 03/07/18 18:01 Aspirin (Aspirin Chewable) 81 mg PO DAILY [facility] Last Admin: 02/28/18 09:10 Dose: 81 mg Lorazepam (Ativan) 1 mg IVP ONCE PRN PRN Reason: Agitation Last Admin: 02/26/18 13:42 Dose: 1 mg Lorazepam (Ativan) 1 mg IVP ONCE PRN PRN Reason: Agitation Last Admin: 02/28/18 13:05 Dose: 1 mg Pantoprazole Sodium (Protonix Ec Tab) 40 mg PO DAILY [facility] Promethazine HCl/Dextromethorphan (Phenergan Dm Syrup) 10 ml PO HS [facility] - Labs Labs: 02/27/18 08:58 02/25/18 07:22 APTT 31 SECONDS (21-34) D 02/28/18 08:33 Assessment and Plan (1) Pulmonary embolism Status: Acute
--- NOTE | 2018-02-28 13:41 | CP.PCM.CON ---
History of Present Illness - History of Present Illness History of Present Illness: Palliative consult requested by Marisabel LOVE for Code status discussion as per patient's request Patient is a 82 yo male admitted from home with SOb X 4 days and mild epigastric pain. patient reported SOB being relieved by rest. denies fever, chills, o2 use at home. CHR negative acute findings on this admission. VQ scan was with high probability for PE. CT chest did not R/O PE. Patient initially started on Heparin drip , than switched to Eliquis as recommended by Pulmonary consult. Patient continue to have dry cough. Neb. Tx and O2 in use for support. Palliative care was called to assist patient with completing the POLST as per his request. PMH: HTN, pneumonia as a child Soc. Hx: , adul childrn live in [place], lives alone, brother in the same building Fam. hx: denied Review of Systems - Constitutional Constitutional: absent: As Per HPI, Anorexia, Chills, Daytime Sleepiness, Excessive Sweating, Fatigue, Fever, Frequent Falls, Headache, Increased Appetite, Lethargy, Malaise, Night Sweats, Snoring, Sleep Apnea, Weight Gain, Weight Loss, Weakness, Other - EENT Eyes: absent: As Per HPI, Blind Spots, Blurred Vision, Change in Vision, Decreased Night Vision, Diplopia, Discharge, Dry Eye, Exophthalmos, Floaters, Irritation, Itchy Eyes, Loss of Peripheral Vision, Pain, Photophobia, Requires Corrective Lenses, Sees Flashes, Spots in Vision, Tunnel Vision, Other Visual Disturbances, Loss of Vision, Other Ears: absent: As Per HPI, Decreased Hearing, Ear Discharge, Ear Pain, Tinnitus, Abnormal Hearing, Disequilibrium, Dizziness, Other Nose/Mouth/Throat: absent: As Per HPI, Epistaxis, Nasal Congestion, Nasal Discharge, Nasal Obstruction, Nasal Trauma, Nose Pain, Post Nasal Drip, Sinus Pain, Sinus Pressure, Bleeding Gums, Change in Voice, Dental Pain, Dry Mouth, Dysphagia, Halitosis, Hoarsness, Lip Swelling, Mouth Lesions, Mouth Pain, Odynophagia, Sore Throat, Throat Swelling, Tongue Swelling, Facial Pain, Neck Pain, Neck Mass, Other - Cardiovascular Cardiovascular: Dyspnea on Exertion - Respiratory Respiratory: Dyspnea on Exertion - Gastrointestinal Gastrointestinal: absent: As Per HPI, Abdominal Pain, Belching, Bloating, Change in Bowel Habits, Change in Stool Character, Coffee Ground Emesis, Constipation, Cramping, Diarrhea, Dyspepsia, Dysphagia, Early Satiety, Excessive Flatus, Fecal Incontinence, Heartburn, Hematemesis, Hematochezia, Loose Stools, Melena, Nausea, Odynophagia, Temesmus, Vomiting, Other - Genitourinary Genitourinary: absent: As Per HPI, Change in Urinary Stream, Difficulty Urinating, Dysuria, Flank Pain, Hematuria, Pyuria, Nocturia, Urinary Incontinence, Urinary Frequency, Urinary Hesitance, Urinary Urgency, Voiding Freq/Small Amts, Freq UTI, Hx Renal/Bladder Calculi, Hx /Renal Surgery, Bladder Distension, Other - Musculoskeletal Musculoskeletal: absent: As Per HPI, Abnormal Gait, Arthralgias, Atrophy, Back Pain, Deformity, Joint Swelling, Limited Range of Motion, Loss of Height, Muscle Cramps, Muscle Weakness, Myalgias, Neck Pain, Numbness, Radiating Pain into Limb, Stiffness, Tingling, Other - Integumentary Integumentary: absent: As Per HPI, Acne, Alopecia, Bleeding Lesions, Change in Hair, Change in Nails, Change in Pigmentation, Changing Lesions, Dry Skin, Erythema, Furuncle, Hirsutism, Lesions, New Lesions, Non-Healing Lesions, Photosensitivity, Pruritus, Rash, Skin Pain, Skin Ulcer, Sores, Striae, Swelling, Unusual Bruising, Wounds, Jaundice, Other - Neurological Neurological: absent: As Per HPI, Abnormal Gait, Abnormal Hearing, Abnormal Movements, Abnormal Speech, Behavioral Changes, Burning Sensations, Confusion, C onvulsions, Disequilibrium, Dizziness, Numbness, Focal Weakness, Frequent Falls, Headaches, Lack of Coordination, Loss of Vision, Memory Loss, Paresthesias, Radicular Pain, Restless Legs, Sensory Deficit, Syncope, Tingling, Tremor, Vertigo, Weakness, Other Visual Disturbances, Other - Psychiatric Psychiatric: absent: As Per HPI, Abnormal Sleep Pattern, Anhedonia, Anxiety, Auditory Hallucinations, Behavioral Changes, Change in Appetite, Change in Libido, Confusion, Depression, Difficulty Concentrating, Hallucinations, Homicidal Ideation, Hopelessness, Irritability, Memory Loss, Mood Swings, Panic Attacks, Paranoia, Suicidal Ideation, Visual Hallucinations, Tactile Hallucinations, Other - Endocrine Endocrine: absent: As Per HPI, Change in Body Appearance, Change in Libido, Cold Intolorance, Deepening of Voice, Excessive Sweating, Fatigue, Flushing, Heat Intolorance, Increase in Ring/Shoe/Hat Size, Palpitations, Polydipsia, Polyphagia, Polyuria, Other - Hematologic/Lymphatic Hematologic: absent: As Per HPI, Easy Bleeding, Easy Bruising, Lymphadenopathy, Other Past Patient History - Infectious Disease Hx of Infectious Diseases: None - Past Medical History & Family History Past Medical History?: Yes - Past Social History Smoking Status: Never Smoked - CARDIAC Hx Hypertension: Yes - PULMONARY Hx Pneumonia: Yes (CHILDHOOD) - NEUROLOGICAL Hx Neurological Disorder: Yes Hx Dizziness: Yes - HEENT Hx HEENT Problems: No - RENAL Hx Chronic Kidney Disease: No - ENDOCRINE/METABOLIC Hx Endocrine Disorders: No - HEMATOLOGICAL/ONCOLOGICAL Hx Blood Disorders: Yes Hx Shingles: Yes - INTEGUMENTARY Hx Dermatological Problems: No - MUSCULOSKELETAL/RHEUMATOLOGICAL Hx Fractures: Yes (LEFT HEEL) - GASTROINTESTINAL Hx Gall Bladder Disease: Yes - GENITOURINARY/GYNECOLOGICAL Hx Genitourinary Disorders: Yes Hx Hematuria: Yes Hx Prostate Problems: Yes - PSYCHIATRIC Hx Substance Use: No - SURGICAL HISTORY Hx Cholecystectomy: Yes - ANESTHESIA Hx Anesthesia: Yes Hx Anesthesia Reactions: No Hx Malignant Hyperthermia: No Meds Allergies/Adverse Reactions: Allergies Allergy/AdvReac Type Severity Reaction Status Date / Time shellfish derived AdvReac Severe NAUSEA Verified 03/14/17 17:53 - Medications Medications: Current Medications Albuterol/Ipratropium (Duoneb 3 Mg/0.5 Mg (3 Ml) Ud) 3 ml INH RQ6 [facility] Last Admin: 02/28/18 07:58 Dose: 3 ml Amlodipine Besylate (Norvasc) 5 mg PO DAILY [facility] Last Admin: 02/28/18 09:10 Dose: 5 mg Apixaban (Eliquis) 10 mg PO BID [facility] Stop: 03/07/18 18:01 Aspirin (Aspirin Chewable) 81 mg PO DAILY [facility] Last Admin: 02/28/18 09:10 Dose: 81 mg Lorazepam (Ativan) 1 mg IVP ONCE PRN PRN Reason: Agitation Last Admin: 02/26/18 13:42 Dose: 1 mg Lorazepam (Ativan) 1 mg IVP ONCE PRN PRN Reason: Agitation Last Admin: 02/28/18 13:05 Dose: 1 mg Pantoprazole Sodium (Protonix Ec Tab) 40 mg PO DAILY [facility] Promethazine HCl/Dextromethorphan (Phenergan Dm Syrup) 10 ml PO HS [facility] Physical Exam - Head Exam Head Exam: ATRAUMATIC, NORMAL INSPECTION, NORMOCEPHALIC - Eye Exam Eye Exam: EOMI, Normal appearance, PERRL Pupil Exam: NORMAL ACCOMODATION, PERRL - ENT Exam ENT Exam: Mucous Membranes Moist, Normal Exam - Neck Exam Neck exam: Positive for: Normal Inspection - Respiratory Exam Respiratory Exam: Decreased Breath Sounds, NORMAL BREATHING PATTERN - Cardiovascular Exam Cardiovascular Exam: Tachycardia, REGULAR RHYTHM - GI/Abdominal Exam GI & Abdominal Exam: Normal Bowel Sounds, Soft - Rectal Exam Rectal Exam: Deferred - Extremities Exam Extremities exam: Positive for: normal inspection - Back Exam Back exam: NORMAL INSPECTION - Neurological Exam Neurological exam: Alert, Oriented x3 - Psychiatric Exam Psychiatric exam: Normal Affect, Normal Mood - Skin Skin Exam: Dry, Intact, Normal Color, Warm Results - Vital Signs Recent Vital Signs: Last Vital Signs Temp 97.9 F 02/28/18 07:00 Pulse 104 H 02/28/18 09:11 Resp 20 02/28/18 07:00 BP 128/77 02/28/18 09:11 Pulse Ox 92 L 02/28/18 07:00 - Labs Result Diagrams: 02/27/18 08:58 02/25/18 07:22 Labs: Laboratory Results - last 24 hr 02/28/18 08:33 APTT 31 D Assessment & Plan - Assessment and Plan (Free Text) Assessment: Palliative consult No Advance directive on chart, PPS 50% I reviewed Medical records, all diagnostic studies, examined and interviewed patient in the bed Patient is alert, oriented X 3 in mild distress due to irritating, dry cough. Skin is intact. Breathing regular, diminished breath sounds. Patient gets very easily SOB while talking. O2 via NC partially helps. Patient feels like " breathing in something' . Neb Tx available PRN. Abdomen soft, denies constipation, last BM yesterday. Urinates freely. Moves all four extremities. Goals of care discussed with patient. I reviewed his clinical presentation and elicited his understanding of condition. Patient showed good understanding as was explained by the Doctors. I questioned what was his expectation of this hospitalization and his biggest concern . Patient is looking forward to breathing easy again and return home. he understands that he may need JAILENE before goinf home and agreed with it. If unable to take care of him self , once home, patient will ask for help from his sister in law who lives in the same building. Code status discussed. I questioned patient about his thoughts when it comes to the end of life. patient said that he did not want his life " sustained by mechanical apparatus". After clarifying this statement patient confirmed again that he would not want CPR, MV assistance, PEG or NGT nor any surgical interventions. he feels that if comes to that point, than that will mean he has reached the end of his life and wants to peacefully. I assisted with POLST. DNR/DNI signed. This was shared with nursing and Marisabel LOVE. Impression * Acute dry cough * SOB on excretion * Limited activity due to SOB * Lives alone, lack of family support * Patient is very particular about end of life care and POLST completed accordingly * Patient agrees with JAILENE before home discharge, if indicated Suggestions * O 2 supplement * Neb. Tx PRN SOB * JAILENE planing * DNR/DNI * POLST on chart Palliaive care will sign off at this time. Advance care planing 55 min
--- NOTE | 2018-02-28 14:50 | MRI ---
Date of service: 02/28/2018 PROCEDURE: MRI BRAIN WITHOUT CONTRAST HISTORY: Rule out right-sided subcortical stroke COMPARISON: Comparison made with CT scan brain 02/26/2018.. TECHNIQUE: Multiplanar, multisequence MR images of the brain were obtained without intravenous contrast enhancement. FINDINGS: HEMORRHAGE: No acute parenchymal, subarachnoid or extra-axial hemorrhage. No evidence of hemosiderin deposition identified on gradient echo weighted sequence. DWI: No evidence of an acute or early subacute infarction seen on diffusion imaging.. BRAIN PARENCHYMA: Moderate to fairly significant diffuse/confluent chronic white matter ischemic changes seen extending peripherally into the deep and subcortical white matter both cerebral hemispheres. There are multiple more discrete chronic appearing lacunar type infarcts scattered about the deep and subcortical white matter as well as brainstem and right cerebellar hemisphere. There may also be a few tiny chronic lacunar is scattered about both basal nuclei difficult to distinguish from dilated perivascular spaces. None of these changes exhibit restricted diffusion. Moderate generalized volume loss. No obvious parenchymal nor extra-axial masses or collections seen on this noncontrast study VENTRICLES: No obstructive hydrocephalus. CRANIUM: No acute calvarial abnormalities ORBITS: Changes of bilateral cataract surgery again noted.. PARANASAL SINUSES/MASTOIDS: Polypoid like mucosal thickening along with linear mucosal thickening left maxillary sinus. Minor polypoid like mucosal thickening right maxillary sinus. There is also mild mucosal thickening seen within the ethmoid air complex extending superiorly into the inferior margin of the frontal sinus. VASCULAR SYSTEM: Visualized major vascular flow voids at skull base patent.. OTHER FINDINGS: None. IMPRESSION: No acute intracranial hemorrhages or infarctions. 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 Moderate generalized volume loss.
[2018-02-28] MEDS: Promethazine DM 12.5 mg-30 mg/10 ml Syrup PO SCH (22:00)
[2018-03-01] MEDS: Albuterol-Ipratrop 3 mg / 0.5 (3 ml) UD INH SCH ×4 (01:45→20:30)
--- NOTE | 2018-03-01 08:31 | CP.PCM.PN ---
Subjective - Date & Time of Evaluation Date of Evaluation: 03/01/18 Time of Evaluation: 08:10 - Subjective Subjective: Pt feels better slowly; able to sleep well last night Trying to move more; no CP, no SOB, no edema, (+) Dry cough Objective - Vital Signs/Intake and Output Vital Signs (last 24 hours): Temp Pulse Resp BP Pulse Ox 97.7 F 84 20 110/69 99 03/01/18 07:31 03/01/18 07:45 03/01/18 07:31 03/01/18 07:31 03/01/18 07:31 - Medications Medications: Current Medications Albuterol/Ipratropium (Duoneb 3 Mg/0.5 Mg (3 Ml) Ud) 3 ml INH RQ6 [facility] Last Admin: 03/01/18 01:45 Dose: Not Given Amlodipine Besylate (Norvasc) 5 mg PO DAILY [facility] Last Admin: 02/28/18 09:10 Dose: 5 mg Apixaban (Eliquis) 10 mg PO BID [facility] Stop: 03/07/18 18:01 Last Admin: 02/28/18 18:06 Dose: 10 mg Aspirin (Aspirin Chewable) 81 mg PO DAILY [facility] Last Admin: 02/28/18 09:10 Dose: 81 mg Lorazepam (Ativan) 1 mg IVP ONCE PRN PRN Reason: Agitation Last Admin: 02/26/18 13:42 Dose: 1 mg Lorazepam (Ativan) 1 mg IVP ONCE PRN PRN Reason: Agitation Last Admin: 02/28/18 13:05 Dose: 1 mg Pantoprazole Sodium (Protonix Ec Tab) 40 mg PO DAILY [facility] Promethazine HCl/Dextromethorphan (Phenergan Dm Syrup) 10 ml PO HS [facility] Last Admin: 02/28/18 22:00 Dose: 10 ml - Labs Labs: 02/27/18 08:58 02/25/18 07:22 APTT 31 SECONDS (21-34) D 02/28/18 08:33 - Constitutional Appears: No Acute Distress - Eye Exam Eye Exam: Normal appearance - ENT Exam ENT Exam: Mucous Membranes Moist - Neck Exam Neck Exam: Full ROM. absent: Normal Inspection, Thyromegaly - Respiratory Exam Respiratory Exam: Decreased Breath Sounds. absent: Rales, Rhonchi, Wheezes - Cardiovascular Exam Cardiovascular Exam: +S1, +S2. absent: Gallop, REGULAR RHYTHM, JVD, Murmur - GI/Abdominal Exam GI & Abdominal Exam: Soft. absent: Tenderness, Normal Bowel Sounds - Extremities Exam Extremities Exam: Normal Capillary Refill. absent: Calf Tenderness, Joint Swelling, Pedal Edema Assessment and Plan - Assessment and Plan (Free Text) Assessment: Pulm Em; HTN Cont meds/ palliative care
[2018-03-01 09:18] LABS: ALB/GLOB RATIO 1.1 (1.0-2.1); ALBUMIN 3.7 g/dL (3.5-5.0); ALT/SGPT 24 U/L (21-72); AST/SGOT 38 U/L (17-59); BLOOD UREA NITROGEN 12 mg/dL (9-20); CALCIUM 8.9 mg/dl (8.6-10.4); GFR NON-AFRICAN AMERICAN 53
[2018-03-01] MEDS: Pantoprazole 40 mg EC Tab PO SCH (09:49)
--- NOTE | 2018-03-01 12:22 | CP.PCM.CON ---
History of Present Illness - History of Present Illness History of Present Illness: 82M presented to the ED 02/24 with progressive SOB and chest pressure. He admitted to bilateral intermittent calf pain for the past few weeks and limited movement 2/2 SOB. Pt was found to have bilateral LE DVTs and VQ scan showed PE. He has been started on Eliquis at this point for anticoagulation. No history of DVT in past. Currently denies any current chest pain, shortness of breath, palpitations, dizziness, nausea, abdominal pain, lower extremity swelling or pain. Vascular Surgery consulted for possible IVC filter, possible thrombectomy. PMH: HTN, HLD, BPH, Chronic RBBB and LAFB, nonsustained VT on prior event monitoring, CVA PSH: Ureteral stents, Cardiac cath in 2017 SH: No tobacco, ETOH or drug use FH: Mother had a stroke at the age of 60, recovered well. All: shellfish (nausea) (has never had IV contrast before) Meds: No prior AC before admission. See MAR Review of Systems - Review of Systems All systems: reviewed and no additional remarkable complaints except (as per HPI) Past Patient History - Infectious Disease Hx of Infectious Diseases: None - Past Medical History & Family History Past Medical History?: Yes - Past Social History Smoking Status: Never Smoked - CARDIAC Hx Hypertension: Yes - PULMONARY Hx Pneumonia: Yes (CHILDHOOD) - NEUROLOGICAL Hx Neurological Disorder: Yes Hx Dizziness: Yes - HEENT Hx HEENT Problems: No - RENAL Hx Chronic Kidney Disease: No - ENDOCRINE/METABOLIC Hx Endocrine Disorders: No - HEMATOLOGICAL/ONCOLOGICAL Hx Blood Disorders: Yes Hx Shingles: Yes - INTEGUMENTARY Hx Dermatological Problems: No - MUSCULOSKELETAL/RHEUMATOLOGICAL Hx Fractures: Yes (LEFT HEEL) - GASTROINTESTINAL Hx Gall Bladder Disease: Yes - GENITOURINARY/GYNECOLOGICAL Hx Genitourinary Disorders: Yes Hx Hematuria: Yes Hx Prostate Problems: Yes - PSYCHIATRIC Hx Substance Use: No - SURGICAL HISTORY Hx Cholecystectomy: Yes - ANESTHESIA Hx Anesthesia: Yes Hx Anesthesia Reactions: No Hx Malignant Hyperthermia: No Meds Allergies/Adverse Reactions: Allergies Allergy/AdvReac Type Severity Reaction Status Date / Time shellfish derived AdvReac Severe NAUSEA Verified 03/14/17 17:53 - Medications Medications: Current Medications Albuterol/Ipratropium (Duoneb 3 Mg/0.5 Mg (3 Ml) Ud) 3 ml INH RQ6 [facility] Last Admin: 03/01/18 08:28 Dose: 3 ml Amlodipine Besylate (Norvasc) 5 mg PO DAILY [facility] Last Admin: 03/01/18 09:49 Dose: 5 mg Apixaban (Eliquis) 10 mg PO BID [facility] Stop: 03/07/18 18:01 Last Admin: 03/01/18 09:49 Dose: 10 mg Aspirin (Aspirin Chewable) 81 mg PO DAILY [facility] Last Admin: 03/01/18 09:49 Dose: 81 mg Lorazepam (Ativan) 1 mg IVP ONCE PRN PRN Reason: Agitation Last Admin: 02/26/18 13:42 Dose: 1 mg Lorazepam (Ativan) 1 mg IVP ONCE PRN PRN Reason: Agitation Last Admin: 02/28/18 13:05 Dose: 1 mg Pantoprazole Sodium (Protonix Ec Tab) 40 mg PO DAILY [facility] Last Admin: 03/01/18 09:49 Dose: 40 mg Promethazine HCl/Dextromethorphan (Phenergan Dm Syrup) 10 ml PO HS [facility] Last Admin: 02/28/18 22:00 Dose: 10 ml Physical Exam - Constitutional Appears: Non-toxic, No Acute Distress - Head Exam Head Exam: ATRAUMATIC, NORMOCEPHALIC - Eye Exam Eye Exam: EOMI. absent: Scleral icterus - ENT Exam ENT Exam: Mucous Membranes Moist, Normal Oropharynx - Neck Exam Neck exam: Positive for: Full Rom Additional comments: trachea midline - Respiratory Exam Respiratory Exam: NORMAL BREATHING PATTERN. absent: Accessory Muscle Use, Chest Wall Tenderness, Respiratory Distress - Cardiovascular Exam Cardiovascular Exam: RRR, +S1, +S2 - GI/Abdominal Exam GI & Abdominal Exam: Soft. absent: Distended, Firm, Guarding, Rebound, Rigid, Tenderness - Rectal Exam Rectal Exam: Deferred - Extremities Exam Extremities exam: Positive for: normal capillary refill. Negative for: calf tenderness, pedal edema, tenderness - Back Exam Back exam: absent: CVA tenderness (L), CVA tenderness (R) - Neurological Exam Neurological exam: Alert, Oriented x3 - Psychiatric Exam Psychiatric exam: Normal Affect, Normal Mood - Skin Skin Exam: Dry, Warm Results - Vital Signs Recent Vital Signs: Last Vital Signs Temp 97.7 F 03/01/18 07:31 Pulse 84 03/01/18 07:45 Resp 20 03/01/18 07:31 BP 110/69 12/01/18 07:31 Pulse Ox 99 03/01/18 07:31 - Labs Result Diagrams: 02/27/18 08:58 03/01/18 08:57 Labs: Laboratory Results - last 24 hr 02/24/18 02/24/18 03/01/18 14:06 14:06 08:57 Factor V see note Sodium 138 Potassium 4.0 Chloride 102 Carbon Dioxide 25 Anion Gap 15 BUN 12 Creatinine 1.3 Est GFR ( Amer) > 60 Est GFR (Non-Af Amer) 53 Random Glucose 109 Calcium 8.9 Total Bilirubin 0.6 AST 38 ALT 24 Alkaline Phosphatase 113 Total Protein 7.2 Albumin 3.7 Globulin 3.5 Albumin/Globulin Ratio 1.1 Prothrombin Mut Interp see note Prothrombin Gene Mutate see note Prothromb Gene Review see note - Imaging and Cardiology MRI - head Status: Image reviewed by me, Report reviewed by me CT scan - chest Status: Image reviewed by me, Report reviewed by me CT scan - head Status: Image reviewed by me, Report reviewed by me US - Carotid Status: Image reviewed by me, Report reviewed by me Venous US Status: Image reviewed by me, Report reviewed by me VQ scan Status: Image reviewed by me, Report reviewed by me Echocardiogram Status: Image reviewed by me, Report reviewed by me Assessment & Plan - Assessment and Plan (Free Text) Assessment: 82M with bilateral DVTs and PE. Plan: -Continue anticoagulation - Monitor for respiratory distress. - Possible candidate for IVC and/or thrombectomy - Will follow D/W Dr. Ochoa Hernandez PGY4
--- NOTE | 2018-03-01 15:30 | CP.PCM.PN ---
Subjective - Date & Time of Evaluation Date of Evaluation: 03/01/18 Time of Evaluation: 13:00 - Subjective Subjective: patient seen and examined Patient states he is slowly improving Afebrile on anticoagulation Vascular consult for extensive Dvt Objective - Vital Signs/Intake and Output Vital Signs (last 24 hours): Temp Pulse Resp BP Pulse Ox 97.7 F 84 20 110/69 99 03/01/18 07:31 03/01/18 07:45 03/01/18 07:31 03/01/18 07:31 03/01/18 07:31 - Medications Medications: Current Medications Albuterol/Ipratropium (Duoneb 3 Mg/0.5 Mg (3 Ml) Ud) 3 ml INH RQ6 [facility] Last Admin: 03/01/18 13:24 Dose: 3 ml Amlodipine Besylate (Norvasc) 5 mg PO DAILY [facility] Last Admin: 03/01/18 09:49 Dose: 5 mg Apixaban (Eliquis) 10 mg PO BID [facility] Stop: 03/07/18 18:01 Last Admin: 03/01/18 09:49 Dose: 10 mg Lorazepam (Ativan) 1 mg IVP ONCE PRN PRN Reason: Agitation Last Admin: 02/26/18 13:42 Dose: 1 mg Lorazepam (Ativan) 1 mg IVP ONCE PRN PRN Reason: Agitation Last Admin: 02/28/18 13:05 Dose: 1 mg Pantoprazole Sodium (Protonix Ec Tab) 40 mg PO DAILY [facility] Last Admin: 03/01/18 09:49 Dose: 40 mg Promethazine HCl/Dextromethorphan (Phenergan Dm Syrup) 10 ml PO HS [facility] Last Admin: 02/28/18 22:00 Dose: 10 ml - Labs Labs: 02/27/18 08:58 03/01/18 08:57 APTT 31 SECONDS (21-34) D 02/28/18 08:33 Assessment and Plan (1) Pulmonary embolism Status: Acute
[2018-03-01] MEDS ORDERED: Aluminum Hydroxide/Magnesium Hydroxide Susp (30 mL) PO PRN (19:53)
[2018-03-01] MEDS: Promethazine DM 12.5 mg-30 mg/10 ml Syrup PO SCH (21:39)
[2018-03-02] MEDS: Albuterol-Ipratrop 3 mg / 0.5 (3 ml) UD INH SCH ×4 (01:32→21:33)
[2018-03-02] MEDS: Pantoprazole 40 mg EC Tab PO SCH (09:22)
--- NOTE | 2018-03-02 10:21 | CP.PCM.PN ---
Subjective - Date & Time of Evaluation Date of Evaluation: 03/01/18 Time of Evaluation: 18:20 - Subjective Subjective: Patient seen and examined at bedside. Patient denied any chest pain, palpitations but did admit to some shortness of breath. Objective - Additional Findings Additional findings: - Head Exam Head Exam: NORMAL INSPECTION, NORMOCEPHALIC - Eye Exam Eye Exam: EOMI, PERRL Pupil Exam: NORMAL ACCOMODATION - ENT Exam ENT Exam: Mucous Membranes Moist - Respiratory Exam Respiratory Exam: NORMAL BREATHING PATTERN. absent: Decreased Breath Sounds, Rales, Rhonchi, Wheezes - Cardiovascular Exam Cardiovascular Exam: +S1, +S2 - GI/Abdominal Exam GI & Abdominal Exam: Soft, Normal Bowel Sounds. absent: Tenderness, Mass - Extremities Exam Extremities Exam: Normal Inspection. absent: Pedal Edema, Tenderness - Neurological Exam Neurological Exam: Alert, Awake, Oriented x3 - Psychiatric Exam Psychiatric exam: Normal Affect, Normal Mood - Skin Skin Exam: Dry, Intact, Normal Color, Warm Assessment and Plan - Assessment and Plan (Free Text) Plan: Dyspnea, Hypoxia on admission Pulmonary Embolism Bilateral DVTs Imaging: - EKG: sinus tachy at 117 BPM, RBBB noted - Chest CT w/o contrast: unremarkable - V/Q Scan (performed in light of renal function): High probability ventilation perfusion scan for pulmonary embolism. - Venous dopplers ordered of bilateral lower extremities: Right - Acute thrombosis of the right common femoral and femoral veins with severe reduction of the venous return. Left - Acute thrombosis of the left popliteal vein with severe reduction of the venous return. - Prior ECHO 01/2017 - normal LVEF - ECHO: LVEF 45-50% systolic dysfunction, severe pulm HTN Management: - Well's Score of 6 - Hypercoagulability workup ordered - Started Eliquis 10mg PO BID for 7 days then 5mg PO BID for minimum 6 months Chest Pain - ACS ruled out Imaging: - EKG: sinus tachy at 117 BPM, RBBB noted Management: - SANDRA x 3 negative - Continue with ASA 81 PO daily Hypertension - Continue Norvasc - Encourage heart healthy, low salt diet D/C ASA Objective - Vital Signs/Intake and Output Vital Signs (last 24 hours): Temp Pulse Resp BP Pulse Ox 97.9 F 85 18 144/82 98 03/02/18 07:27 03/02/18 07:27 03/02/18 07:27 03/02/18 07:27 03/02/18 07:27 - Medications Medications: Current Medications Al Hydrox/Mg Hydrox/Simethicone (Maalox 30 Ml) 30 ml PO Q8H PRN PRN Reason: Indigestion / Heartburn Last Admin: 03/01/18 20:21 Dose: 30 ml Albuterol/Ipratropium (Duoneb 3 Mg/0.5 Mg (3 Ml) Ud) 3 ml INH RQ6 [facility] Last Admin: 03/02/18 08:23 Dose: 3 ml Amlodipine Besylate (Norvasc) 5 mg PO DAILY [facility] Last Admin: 03/02/18 09:22 Dose: 5 mg Apixaban (Eliquis) 10 mg PO BID [facility] Stop: 03/07/18 18:01 Last Admin: 03/02/18 09:22 Dose: 10 mg Lorazepam (Ativan) 1 mg IVP ONCE PRN PRN Reason: Agitation Last Admin: 02/26/18 13:42 Dose: 1 mg Lorazepam (Ativan) 1 mg IVP ONCE PRN PRN Reason: Agitation Last Admin: 02/28/18 13:05 Dose: 1 mg Pantoprazole Sodium (Protonix Ec Tab) 40 mg PO DAILY [facility] Last Admin: 03/02/18 09:22 Dose: 40 mg Promethazine HCl/Dextromethorphan (Phenergan Dm Syrup) 10 ml PO HS [facility] Last Admin: 03/01/18 21:39 Dose: 10 ml - Labs Labs: 02/27/18 08:58 03/01/18 08:57 APTT 31 SECONDS (21-34) D 02/28/18 08:33
--- NOTE | 2018-03-02 10:30 | CP.PCM.PN ---
Subjective - Date & Time of Evaluation Date of Evaluation: 03/02/18 Time of Evaluation: 07:15 - Subjective Subjective: Surgery Progress note. Dr. Packer service Pt seen and examined at bedside. No acute events overnight. No leg swelling noted. No fevers or chills. no new complaints. Patient now DNR/DNI. Objective - Vital Signs/Intake and Output Vital Signs (last 24 hours): Temp Pulse Resp BP Pulse Ox 97.9 F 85 18 144/82 98 03/02/18 07:27 03/02/18 07:27 03/02/18 07:27 03/02/18 07:27 03/02/18 07:27 - Medications Medications: Current Medications Al Hydrox/Mg Hydrox/Simethicone (Maalox 30 Ml) 30 ml PO Q8H PRN PRN Reason: Indigestion / Heartburn Last Admin: 03/01/18 20:21 Dose: 30 ml Albuterol/Ipratropium (Duoneb 3 Mg/0.5 Mg (3 Ml) Ud) 3 ml INH RQ6 [facility] Last Admin: 03/02/18 08:23 Dose: 3 ml Amlodipine Besylate (Norvasc) 5 mg PO DAILY [facility] Last Admin: 03/02/18 09:22 Dose: 5 mg Apixaban (Eliquis) 10 mg PO BID [facility] Stop: 03/07/18 18:01 Last Admin: 03/02/18 09:22 Dose: 10 mg Lorazepam (Ativan) 1 mg IVP ONCE PRN PRN Reason: Agitation Last Admin: 02/26/18 13:42 Dose: 1 mg Lorazepam (Ativan) 1 mg IVP ONCE PRN PRN Reason: Agitation Last Admin: 02/28/18 13:05 Dose: 1 mg Pantoprazole Sodium (Protonix Ec Tab) 40 mg PO DAILY [facility] Last Admin: 03/02/18 09:22 Dose: 40 mg Promethazine HCl/Dextromethorphan (Phenergan Dm Syrup) 10 ml PO HS [facility] Last Admin: 03/01/18 21:39 Dose: 10 ml - Labs Labs: 02/27/18 08:58 03/01/18 08:57 APTT 31 SECONDS (21-34) D 02/28/18 08:33 - Constitutional Appears: Non-toxic, No Acute Distress - Head Exam Head Exam: ATRAUMATIC, NORMAL INSPECTION, NORMOCEPHALIC - Eye Exam Eye Exam: absent: Scleral icterus - ENT Exam ENT Exam: Mucous Membranes Moist - Respiratory Exam Respiratory Exam: NORMAL BREATHING PATTERN. absent: Accessory Muscle Use, Res piratory Distress - Cardiovascular Exam Cardiovascular Exam: absent: JVD - GI/Abdominal Exam GI & Abdominal Exam: Soft. absent: Distended, Guarding, Rigid, Tenderness - Extremities Exam Extremities Exam: Normal Inspection. absent: Calf Tenderness, Pedal Edema Additional comments: distal lower extremity pulses intact - Neurological Exam Neurological Exam: Alert, Awake, Oriented x3 - Psychiatric Exam Psychiatric exam: Normal Affect, Normal Mood - Skin Skin Exam: Dry, Intact, Normal Color, Warm Assessment and Plan - Assessment and Plan (Free Text) Assessment: 82yo M with bilateral DVTs and PE. On theraputic anticoagulation Plan: - Continue theraputic anticoagulation - f/u hematology recs - No plans for any surgical intervention at this time. Further recs as per Dr. Ochoa Nix PGY2 Surgery
--- NOTE | 2018-03-02 17:03 | CP.PCM.PN ---
Subjective - Date & Time of Evaluation Date of Evaluation: 03/02/18 Time of Evaluation: 17:01 - Subjective Subjective: S: Awake. C/o cough and SOB on exretion Objective - Vital Signs/Intake and Output Vital Signs (last 24 hours): Temp Pulse Resp BP Pulse Ox 98 F 92 H 18 117/77 96 03/02/18 16:00 03/02/18 16:00 03/02/18 16:00 03/02/18 16:00 03/02/18 16:00 - Medications Medications: Current Medications Al Hydrox/Mg Hydrox/Simethicone (Maalox 30 Ml) 30 ml PO Q8H PRN PRN Reason: Indigestion / Heartburn Last Admin: 03/01/18 20:21 Dose: 30 ml Albuterol/Ipratropium (Duoneb 3 Mg/0.5 Mg (3 Ml) Ud) 3 ml INH RQ6 [facility] Last Admin: 03/02/18 13:40 Dose: 3 ml Amlodipine Besylate (Norvasc) 5 mg PO DAILY [facility] Last Admin: 03/02/18 09:22 Dose: 5 mg Apixaban (Eliquis) 10 mg PO BID [facility] Stop: 03/07/18 18:01 Last Admin: 03/02/18 09:22 Dose: 10 mg Lorazepam (Ativan) 1 mg IVP ONCE PRN PRN Reason: Agitation Last Admin: 02/26/18 13:42 Dose: 1 mg Lorazepam (Ativan) 1 mg IVP ONCE PRN PRN Reason: Agitation Last Admin: 02/28/18 13:05 Dose: 1 mg Pantoprazole Sodium (Protonix Ec Tab) 40 mg PO DAILY [facility] Last Admin: 03/02/18 09:22 Dose: 40 mg Promethazine HCl/Dextromethorphan (Phenergan Dm Syrup) 10 ml PO HS [facility] Last Admin: 03/01/18 21:39 Dose: 10 ml - Labs Labs: 02/27/18 08:58 03/01/18 08:57 APTT 31 SECONDS (21-34) D 02/28/18 08:33 - Constitutional Appears: Chronically Ill - Head Exam Head Exam: NORMAL INSPECTION - Respiratory Exam Respiratory Exam: Decreased Breath Sounds - Cardiovascular Exam Cardiovascular Exam: REGULAR RHYTHM - GI/Abdominal Exam GI & Abdominal Exam: Soft - Rectal Exam Rectal Exam: Deferred - Neurological Exam Neurological Exam: Alert Assessment and Plan (1) Hypoxia Status: Acute (2) PVD (peripheral vascular disease) Status: Acute (3) Pulmonary embolism Status: Acute - Assessment and Plan (Free Text) Assessment: A/P: Continue medications
--- NOTE | 2018-03-02 18:23 | CON ---
DATE: 03/02/2018 HEMATOLOGY CONSULTATION HISTORY OF PRESENT ILLNESS: This is an 82-year-old man with DVT and pulmonary embolism, who has many other underlying medical problems including arrhythmia. PHYSICAL EXAMINATION: GENERAL: The patient is able to lie flat in bed. HEART: S1 and S2, irregularly irregular. SKIN: No petechiae. No bruises. HEENT: Anicteric. NODES: Nonpalpable in the axillary, cervical, supraclavicular, and inguinal regions. ABDOMEN: Shows no liver, no spleen, no tenderness. EXTREMITIES: Shows some edema at the ankles. SIGN ERECTOR: No focal finding. ASSESSMENT AND PLAN: The patient has pulmonary embolism and deep venous thrombosis. He is on Eliquis right now. I think, at this point, that is adequate treatment. Further testing will be done but essentially he will be on anticoagulation for the rest of his life and so I will hold off on doing the blood test in terms of coagulopathy as it will not be clinically meaningful at this point. Joce Castillo MD
[2018-03-02] MEDS: Promethazine DM 12.5 mg-30 mg/10 ml Syrup PO SCH (21:10)
[2018-03-03] MEDS: Albuterol-Ipratrop 3 mg / 0.5 (3 ml) UD INH SCH ×4 (02:00→20:00)
--- NOTE | 2018-03-03 08:37 | CP.PCM.PN ---
Subjective - Date & Time of Evaluation Date of Evaluation: 03/03/18 Time of Evaluation: 08:05 - Subjective Subjective: Pt no CP, no SOB , no edema, (+) dry cough and R upper back pain No n/v, no diarrhea; Walk to bath room and need his O2 Objective - Vital Signs/Intake and Output Vital Signs (last 24 hours): Temp Pulse Resp BP Pulse Ox 98.0 F 85 20 138/92 H 96 03/02/18 23:00 03/03/18 08:07 03/02/18 23:00 03/02/18 23:00 03/02/18 23:00 - Medications Medications: Current Medications Al Hydrox/Mg Hydrox/Simethicone (Maalox 30 Ml) 30 ml PO Q8H PRN PRN Reason: Indigestion / Heartburn Last Admin: 03/01/18 20:21 Dose: 30 ml Albuterol/Ipratropium (Duoneb 3 Mg/0.5 Mg (3 Ml) Ud) 3 ml INH RQ6 [facility] Last Admin: 03/03/18 07:50 Dose: 3 ml Amlodipine Besylate (Norvasc) 5 mg PO DAILY [facility] Last Admin: 03/02/18 09:22 Dose: 5 mg Apixaban (Eliquis) 10 mg PO BID [facility] Stop: 03/07/18 18:01 Last Admin: 03/02/18 17:04 Dose: 10 mg Lorazepam (Ativan) 1 mg IVP ONCE PRN PRN Reason: Agitation Last Admin: 02/26/18 13:42 Dose: 1 mg Lorazepam (Ativan) 1 mg IVP ONCE PRN PRN Reason: Agitation Last Admin: 02/28/18 13:05 Dose: 1 mg Pantoprazole Sodium (Protonix Ec Tab) 40 mg PO DAILY [facility] Last Admin: 03/02/18 09:22 Dose: 40 mg Promethazine HCl/Dextromethorphan (Phenergan Dm Syrup) 10 ml PO HS [facility] Last Admin: 03/02/18 21:10 Dose: 10 ml - Labs Labs: 02/27/18 08:58 03/01/18 08:57 APTT 31 SECONDS (21-34) D 02/28/18 08:33 - Constitutional Appears: No Acute Distress - Eye Exam Eye Exam: Normal appearance - ENT Exam ENT Exam: Mucous Membranes Moist - Neck Exam Neck Exam: Full ROM. absent: Lymphadenopathy - Respiratory Exam Respiratory Exam: Decreased Breath Sounds, Rales. absent: Rhonchi, Wheezes (R rales on R base) - Cardiovascular Exam Cardiovascular Exam: REGULAR RHYTHM, +S1, +S2. absent: Diastolic murmur, Gallop, JVD - GI/Abdominal Exam GI & Abdominal Exam: Soft. absent: Tenderness, Mass - Extremities Exam Extremities Exam: Full ROM, Normal Capillary Refill. absent: Calf Tenderness, Pedal Edema Assessment and Plan - Assessment and Plan (Free Text) Assessment: Pulm Embolism; HTN; BPH Pt want to go home; Will do PT assessment/ social insurance adviser consult Check CXR Cont meds
[2018-03-03] MEDS: Pantoprazole 40 mg EC Tab PO SCH (10:23)
--- NOTE | 2018-03-03 12:25 | RAD ---
Date of service: 03/03/2018 HISTORY: Develop rales R base COMPARISON: Comparison chest 02/23/2018 TECHNIQUE: Chest PA and lateral FINDINGS: LUNGS: Minor biapical pleural thickening. Suspect minimal bibasilar atelectasis.. Persistent slight elevation right hemidiaphragm PLEURA: No significant pleural effusion identified. No pneumothorax apparent. CARDIOVASCULAR: No discernible aortic atherosclerotic calcification present. Heart appears enlarged no pulmonary vascular congestion. OSSEOUS STRUCTURES: No significant abnormalities. VISUALIZED UPPER ABDOMEN: Normal. OTHER FINDINGS: None. IMPRESSION: Mild biapical pleural thickening. Suspect minimal bibasilar atelectasis
--- NOTE | 2018-03-03 12:32 | CP.PCM.PN ---
<Lynda Petit - Last Filed: 03/03/18 12:28> Subjective - Date & Time of Evaluation Date of Evaluation: 03/03/18 Time of Evaluation: 12:28 - Subjective Subjective: Cardiology Follow Up Patient seen and examined at bedside. Patient denied any chest pain, palpitations or shortness of breath. Objective - Vital Signs/Intake and Output Vital Signs (last 24 hours): Temp Pulse Resp BP Pulse Ox 97.7 F 69 20 111/77 95 03/03/18 08:00 03/03/18 10:21 03/03/18 08:00 03/03/18 10:21 03/03/18 08:00 - Medications Medications: Current Medications Al Hydrox/Mg Hydrox/Simethicone (Maalox 30 Ml) 30 ml PO Q8H PRN PRN Reason: Indigestion / Heartburn Last Admin: 03/01/18 20:21 Dose: 30 ml Albuterol/Ipratropium (Duoneb 3 Mg/0.5 Mg (3 Ml) Ud) 3 ml INH RQ6 [facility] Last Admin: 03/03/18 07:50 Dose: 3 ml Amlodipine Besylate (Norvasc) 5 mg PO DAILY [facility] Last Admin: 03/03/18 10:21 Dose: 5 mg Apixaban (Eliquis) 10 mg PO BID [facility] Stop: 03/07/18 18:01 Last Admin: 03/03/18 10:21 Dose: 10 mg Hydrochlorothiazide (Hydrodiuril) 25 mg PO DAILY [facility] Last Admin: 03/03/18 10:21 Dose: 25 mg Lorazepam (Ativan) 1 mg IVP ONCE PRN PRN Reason: Agitation Last Admin: 02/26/18 13:42 Dose: 1 mg Lorazepam (Ativan) 1 mg IVP ONCE PRN PRN Reason: Agitation Last Admin: 02/28/18 13:05 Dose: 1 mg Pantoprazole Sodium (Protonix Ec Tab) 40 mg PO DAILY [facility] Last Admin: 03/03/18 10:23 Dose: 40 mg Promethazine HCl/Dextromethorphan (Phenergan Dm Syrup) 10 ml PO HS [facility] Last Admin: 03/02/18 21:10 Dose: 10 ml - Labs Labs: 02/27/18 08:58 03/01/18 08:57 APTT 31 SECONDS (21-34) D 02/28/18 08:33 - Additional Findings Additional findings: - Head Exam Head Exam: NORMAL INSPECTION, NORMOCEPHALIC - Eye Exam Eye Exam: EOMI, PERRL Pupil Exam: NORMAL ACCOMODATION - ENT Exam ENT Exam: Mucous Membranes Moist - Respiratory Exam Respiratory Exam: NORMAL BREATHING PATTERN. absent: Decreased Breath Sounds, Rales, Rhonchi, Wheezes - Cardiovascular Exam Cardiovascular Exam: +S1, +S2 - GI/Abdominal Exam GI & Abdominal Exam: Soft, Normal Bowel Sounds. absent: Tenderness, Mass - Extremities Exam Extremities Exam: Normal Inspection. absent: Pedal Edema, Tenderness - Neurological Exam Neurological Exam: Alert, Awake, Oriented x3 - Psychiatric Exam Psychiatric exam: Normal Affect, Normal Mood - Skin Skin Exam: Dry, Intact, Normal Color, Warm Assessment and Plan - Assessment and Plan (Free Text) Plan: Dyspnea, Hypoxia on admission Pulmonary Embolism Bilateral DVTs Imaging: - EKG: sinus tachy at 117 BPM, RBBB noted - Chest CT w/o contrast: unremarkable - V/Q Scan (performed in light of renal function): High probability ventilation perfusion scan for pulmonary embolism. - Venous dopplers ordered of bilateral lower extremities: Right - Acute thrombosis of the right common femoral and femoral veins with severe reduction of the venous return. Left - Acute thrombosis of the left popliteal vein with severe reduction of the venous return. - Prior ECHO 01/2017 - normal LVEF - ECHO: LVEF 45-50% systolic dysfunction, severe pulm HTN Management: - Well's Score of 6 - Hypercoagulability workup ordered - No surgical intervention for IVC filter at this time, continue with AC - Started Eliquis 10mg PO BID for 7 days then 5mg PO BID (starting 03/08/18) for life most likely, follow up with heme/onc, pulmonary Chest Pain - ACS ruled out Imaging: - EKG: sinus tachy at 117 BPM, RBBB noted Management: - SANDRA x 3 negative Hypertension - Continue with Norvasc - Encourage heart healthy, low salt diet Case discussed with Lynda Roy DO, PGY2 <Osei Clemens - Last Filed: 03/03/18 22:33> Objective - Vital Signs/Intake and Output Vital Signs (last 24 hours): Temp Pulse Resp BP Pulse Ox 97.7 F 99 H 18 133/86 97 03/03/18 15:00 03/03/18 15:00 03/03/18 15:00 03/03/18 15:00 03/03/18 15:00 - Medications Medications: Current Medications Al Hydrox/Mg Hydrox/Simethicone (Maalox 30 Ml) 30 ml PO Q8H PRN PRN Reason: Indigestion / Heartburn Last Admin: 03/01/18 20:21 Dose: 30 ml Albuterol/Ipratropium (Duoneb 3 Mg/0.5 Mg (3 Ml) Ud) 3 ml INH RQ6 [facility] Last Admin: 03/03/18 20:00 Dose: 3 ml Amlodipine Besylate (Norvasc) 5 mg PO DAILY [facility] Last Admin: 03/03/18 10:21 Dose: 5 mg Apixaban (Eliquis) 10 mg PO BID [facility] Stop: 03/07/18 18:01 Last Admin: 03/03/18 18:07 Dose: 10 mg Hydrochlorothiazide (Hydrodiuril) 25 mg PO DAILY [facility] Last Admin: 03/03/18 10:21 Dose: 25 mg Lorazepam (Ativan) 1 mg IVP ONCE PRN PRN Reason: Agitation Last Admin: 02/26/18 13:42 Dose: 1 mg Lorazepam (Ativan) 1 mg IVP ONCE PRN PRN Reason: Agitation Last Admin: 02/28/18 13:05 Dose: 1 mg Pantoprazole Sodium (Protonix Ec Tab) 40 mg PO DAILY [facility] Last Admin: 03/03/18 10:23 Dose: 40 mg Promethazine HCl/Dextromethorphan (Phenergan Dm Syrup) 10 ml PO HS [facility] Last Admin: 03/03/18 21:59 Dose: 10 ml - Labs Labs: 02/27/18 08:58 03/01/18 08:57 APTT 31 SECONDS (21-34) D 02/28/18 08:33 Assessment and Plan - Assessment and Plan (Free Text) Plan: Patient seen and evaluated in person by me. Plan of care d/w the medical instructor and as documented
--- NOTE | 2018-03-03 13:00 | PN ---
DATE: 03/03/2018 TIME OF EVALUATION: 07:15 a.m. NEUROLOGICAL PROBLEM: Left hemiparesis with DVT, on oral anticoagulation. PHYSICAL EXAMINATION: VITAL SIGNS: Blood pressure 138/92, mean arterial pressure of 107, respiratory rate 18, temperature afebrile. GENERAL: The patient is sleepy, arousable calling his name. EXTREMITIES: Moves all four extremities against the gravity. Examination is unchanged to compared with my previous examination. DIAGNOSTIC DATA: 1. 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 2. EEG does not show any focal paroxysmal activities. If medically stable, the patient can be discharged and should have active physical therapy to improve his gait and strength. From neurological point of view, I will be signing him off for followup. If those were to change, please consider to contact me. Augustus Hardwick MD
--- NOTE | 2018-03-03 17:44 | CP.PCM.PN ---
Subjective - Date & Time of Evaluation Date of Evaluation: 03/03/18 Time of Evaluation: 09:40 - Subjective Subjective: Patient seen and examined at bedside, sitting down comfortably. Patient reports SOB when getting up to use the bathroom. Reports no SOB when sitting in chair but mild discomfort. Denies chest pain, fever, cough Patient on Eliquis 10 mg BID for one week and then 5 mg b.i.d. for 3-6 months to treat PE/DVT. Surgery service (Dr. Packer) saw patient and will not do any intervention at this point Patient stable from pulmonary standpoint Will need Echo outpatient Follow up outpatient in 1 month Objective - Vital Signs/Intake and Output Vital Signs (last 24 hours): Temp Pulse Resp BP Pulse Ox 97.7 F 99 H 18 133/86 97 03/03/18 15:00 03/03/18 15:00 03/03/18 15:00 03/03/18 15:00 03/03/18 15:00 - Medications Medications: Current Medications Al Hydrox/Mg Hydrox/Simethicone (Maalox 30 Ml) 30 ml PO Q8H PRN PRN Reason: Indigestion / Heartburn Last Admin: 03/01/18 20:21 Dose: 30 ml Albuterol/Ipratropium (Duoneb 3 Mg/0.5 Mg (3 Ml) Ud) 3 ml INH RQ6 [facility] Last Admin: 03/03/18 13:42 Dose: 3 ml Amlodipine Besylate (Norvasc) 5 mg PO DAILY [facility] Last Admin: 03/03/18 10:21 Dose: 5 mg Apixaban (Eliquis) 10 mg PO BID [facility] Stop: 03/07/18 18:01 Last Admin: 03/03/18 10:21 Dose: 10 mg Hydrochlorothiazide (Hydrodiuril) 25 mg PO DAILY [facility] Last Admin: 03/03/18 10:21 Dose: 25 mg Lorazepam (Ativan) 1 mg IVP ONCE PRN PRN Reason: Agitation Last Admin: 02/26/18 13:42 Dose: 1 mg Lorazepam (Ativan) 1 mg IVP ONCE PRN PRN Reason: Agitation Last Admin: 02/28/18 13:05 Dose: 1 mg Pantoprazole Sodium (Protonix Ec Tab) 40 mg PO DAILY [facility] Last Admin: 03/03/18 10:23 Dose: 40 mg Promethazine HCl/Dextromethorphan (Phenergan Dm Syrup) 10 ml PO HS [facility] Last Admin: 03/02/18 21:10 Dose: 10 ml - Labs Labs: 02/27/18 08:58 03/01/18 08:57 APTT 31 SECONDS (21-34) D 02/28/18 08:33 Assessment and Plan (1) Pulmonary embolism Status: Acute
[2018-03-03] MEDS: Promethazine DM 12.5 mg-30 mg/10 ml Syrup PO SCH (21:59)
[2018-03-04] MEDS: Albuterol-Ipratrop 3 mg / 0.5 (3 ml) UD INH SCH ×3 (01:06→13:51)
[2018-03-04 07:34] VITALS: RESP 18; TEMP 97.6; O2SAT 96
--- NOTE | 2018-03-04 08:27 | CP.PCM.PN ---
Subjective - Date & Time of Evaluation Date of Evaluation: 03/04/18 Time of Evaluation: 08:10 - Subjective Subjective: Pt unable to slep last night; SOB w/ effort is much improve No IVC filter nor david work up contemplated; No CP, no edema, leg pain is on/off but improve; min dry cough Objective - Vital Signs/Intake and Output Vital Signs (last 24 hours): Temp Pulse Resp BP Pulse Ox 97.6 F 86 18 113/76 96 03/04/18 07:00 03/04/18 07:43 03/04/18 07:00 03/04/18 07:00 03/04/18 07:00 Intake and Output: 03/04/18 03/04/18 06:59 18:59 Intake Total 500 Balance 500 - Medications Medications: Current Medications Al Hydrox/Mg Hydrox/Simethicone (Maalox 30 Ml) 30 ml PO Q8H PRN PRN Reason: Indigestion / Heartburn Last Admin: 03/01/18 20:21 Dose: 30 ml Albuterol/Ipratropium (Duoneb 3 Mg/0.5 Mg (3 Ml) Ud) 3 ml INH RQ6 [facility] Last Admin: 03/04/18 01:06 Dose: Not Given Amlodipine Besylate (Norvasc) 5 mg PO DAILY [facility] Last Admin: 03/03/18 10:21 Dose: 5 mg Apixaban (Eliquis) 10 mg PO BID [facility] Stop: 03/07/18 18:01 Last Admin: 03/03/18 18:07 Dose: 10 mg Hydrochlorothiazide (Hydrodiuril) 25 mg PO DAILY [facility] Last Admin: 03/03/18 10:21 Dose: 25 mg Lorazepam (Ativan) 1 mg IVP ONCE PRN PRN Reason: Agitation Last Admin: 02/26/18 13:42 Dose: 1 mg Lorazepam (Ativan) 1 mg IVP ONCE PRN PRN Reason: Agitation Last Admin: 02/28/18 13:05 Dose: 1 mg Pantoprazole Sodium (Protonix Ec Tab) 40 mg PO DAILY [facility] Last Admin: 03/03/18 10:23 Dose: 40 mg Promethazine HCl/Dextromethorphan (Phenergan Dm Syrup) 10 ml PO HS [facility] Last Admin: 03/03/18 21:59 Dose: 10 ml - Labs Labs: 02/27/18 08:58 03/01/18 08:57 APTT 31 SECONDS (21-34) D 02/28/18 08:33 - Constitutional Appears: No Acute Distress - Eye Exam Eye Exam: Normal appearance - ENT Exam ENT Exam: Mucous Membranes Moist - Neck Exam Neck Exam: Full ROM, Normal Inspection. absent: Thyromegaly - Respiratory Exam Respiratory Exam: Decreased Breath Sounds. absent: Rales, Rhonchi, Wheezes - Cardiovascular Exam Cardiovascular Exam: REGULAR RHYTHM, +S1, +S2. absent: Gallop, JVD - GI/Abdominal Exam GI & Abdominal Exam: Soft. absent: Tenderness, Mass - Extremities Exam Extremities Exam: Normal Capillary Refill. absent: Calf Tenderness, Full ROM, Joint Swelling, Pedal Edema Assessment and Plan - Assessment and Plan (Free Text) Assessment: DVT/ Pulm Embolism; HTN, BPH For discharge home Cont meds
[2018-03-04] MEDS: Pantoprazole 40 mg EC Tab PO SCH (09:30)
[2018-03-04 09:31] VITALS: BP 124/85; PULSE 102
--- NOTE | 2018-03-04 11:47 | EEG ---
DATE: 02/26/2018 This is a 16-channel electroencephalogram of awake and drowsy adult. During the study, photic stimulation was performed. Hyperventilation was not performed. The resting electroencephalogram is well organized to form 30 to 40 microvolt alpha activity seen at posterior parietal region. Anteriorly fast activities superimposed with the 2 to 3 Hz of delta activities seen at frontal leads. Some movement artifact contaminated the background rhythm. Photic stimulation did not evoke driving response noted at 2 to 20 Hz. IMPRESSION: This is normal electroencephalogram of awake and drowsy adult. During the study, neither electroencephalographic, paroxysmal activities, nor focal slowing noted. Augustus Hardwick MD MTDD
--- NOTE | 2018-03-16 16:49 | CP.PCM.DIS ---
Provider - Provider Date of Admission: 02/23/18 12:02 CC: Fatigue 82 y/o with mardk fatigue and shortness of breath about 3 days prior to admission. He was seen in ER and was admitted for CHF c/o inc Pro BNR & inc dimers. Attending physician: Angel Hughes MD Consults: 02/23/18 15:41 Cardiology Consult Routine Comment: Consulting Provider: Osei Clemens Consulting Physician: Osei Clemens Reason for Consult: CHEST PAIN 02/24/18 08:32 Pulmonology Consult Routine Comment: Please notify attending Consulting Provider: Ray Liriano Consulting Physician: Ray Liriano Reason for Consult: R/O PE 02/24/18 12:25 Physician Consult Routine Comment: Pulmonary Embolism Consulting Provider: Haile Manriquez Consulting Physician: Haile Manriquez Reason for Consult: Pulmonary Embolism 02/25/18 08:39 Neurology Consult Routine Comment: Consulting Provider: Augustus Hardwick Consulting Physician: Augustus Hardwick Reason for Consult: h/o CVA 02/28/18 10:34 Palliative Care Consult Routine Comment: Consulting Provider: Lizett Webster Physician Instructions: Reason For Exam: wants to fill out advance directive 03/01/18 08:31 General Surgery Consult Routine Comment: Please notify attending Consulting Provider: Jeffrey Packer Jr. Consulting Physician: Jeffrey Packer Jr. Reason for Consult: DVT/PE 03/01/18 14:45 Hematology Oncology Consult Routine Comment: Please notify attending Consulting Provider: Joce Castillo Consulting Physician: Joce Castillo Reason for Consult: R/O malignancy and hypercoagulable state (DVT and PE) 03/03/18 08:39 Fire Prevention Inspector [Case Management Referral] Routine Comment: Physician Instructions: Reason For Exam: discharge planning Reason for Referral: Discharge Planning Time Spent in preparation of Discharge (in minutes): 12 Hospital Course - Lab Results Lab Results: Most Recent Lab Values WBC 5.5 K/uL (4.8-10.8) 02/27/18 08:58 RBC 4.99 Mil/uL (4.40-5.90) 02/27/18 08:58 Hgb 14.4 g/dL (12.0-18.0) 02/27/18 08:58 Hct 41.9 % (35.0-51.0) 02/27/18 08:58 MCV 83.9 fL (80.0-94.0) 02/27/18 08:58 MCH 28.8 pg (27.0-31.0) 02/27/18 08:58 MCHC 34.3 g/dL (33.0-37.0) 02/27/18 08:58 RDW 13.5 % (11.5-14.5) 02/27/18 08:58 Plt Count 334 K/uL (130-400) 02/27/18 08:58 MPV 8.1 fL (7.2-11.7) 02/27/18 08:58 Neut % (Auto) 61.5 % (50.0-75.0) 02/25/18 07:22 Lymph % (Auto) 24.2 % (20.0-40.0) 02/25/18 07:22 [place] % (Auto) 10.0 % (0.0-10.0) 02/25/18 07:22 Eos % (Auto) 3.4 % (0.0-4.0) 02/25/18 07:22 Baso % (Auto) 0.9 % (0.0-2.0) 02/25/18 07:22 Neut # (Auto) 4.4 K/uL (1.8-7.0) 02/25/18 07:22 Lymph # (Auto) 1.7 K/uL (1.0-4.3) 02/25/18 07:22 [place] # (Auto) 0.7 K/uL (0.0-0.8) 02/25/18 07:22 Eos # (Auto) 0.2 K/uL (0.0-0.7) 02/25/18 07:22 Baso # (Auto) 0.1 K/uL (0.0-0.2) 02/25/18 07:22 APTT 31 SECONDS (21-34) D 02/28/18 08:33 D-Dimer, Quantitative 1274 ng/mlDDU (0-243) H 02/23/18 14:41 Protein C Activity 120 % (70-180) 02/24/18 14:06 Protein S Activity 94 % (70-150) 02/24/18 14:06 Antithrombin III Activ 92 % activity (80-120) 02/24/18 14:06 Factor V see note 02/24/18 14:06 Sodium 138 mmol/L (132-148) 03/01/18 08:57 Potassium 4.0 mmol/L (3.6-5.2) 03/01/18 08:57 Chloride 102 mmol/L (98-107) 03/01/18 08:57 Carbon Dioxide 25 mmol/L (22-30) 03/01/18 08:57 Anion Gap 15 (10-20) 03/01/18 08:57 BUN 12 mg/dL (9-20) 03/01/18 08:57 Creatinine 1.3 mg/dL (0.8-1.5) 03/01/18 08:57 Est GFR ( Amer) > 60 03/01/18 08:57 Est GFR (Non-Af Amer) 53 03/01/18 08:57 Random Glucose 109 mg/dL (75-110) 03/01/18 08:57 Hemoglobin A1c 6.0 % (4.2-6.5) 02/24/18 14:06 Calcium 8.9 mg/dl (8.6-10.4) 03/01/18 08:57 Phosphorus 4.2 mg/dL (2.5-4.5) 02/25/18 07:22 Magnesium 1.9 mg/dL (1.6-2.3) 02/25/18 07:22 Total Bilirubin 0.6 mg/dL (0.2-1.3) 03/01/18 08:57 AST 38 U/L (17-59) 03/01/18 08:57 ALT 24 U/L (21-72) 03/01/18 08:57 Alkaline Phosphatase 113 U/L (38-126) 03/01/18 08:57 Troponin I 0.0730 ng/mL (0.00-0.120) 02/24/18 01:58 NT-Pro-B Natriuret Pep 8780 pg/mL (0-900) H 02/23/18 10:13 Total Protein 7.2 g/dL (6.3-8.3) 03/01/18 08:57 Albumin 3.7 g/dL (3.5-5.0) 03/01/18 08:57 Globulin 3.5 gm/dL (2.2-3.9) 03/01/18 08:57 Albumin/Globulin Ratio 1.1 (1.0-2.1) 03/01/18 08:57 Triglycerides 155 mg/dL (0-149) H 02/26/18 07:44 Cholesterol 182 mg/dL (0-199) 02/26/18 07:44 LDL Cholesterol Direct 131 mg/dL (0-129) H 02/26/18 07:44 HDL Cholesterol 29 mg/dL (30-70) L 02/26/18 07:44 Vitamin B12 532 pg/mL (239-931) 02/26/18 07:44 Free T4 1.79 ng/dL (0.78-2.19) 02/26/18 07:44 TSH 3rd Generation 0.34 mIU/L (0.46-4.68) L 02/26/18 07:44 Prolactin 14.8 ng/mL (3.7-17.9) 02/26/18 07:44 Prothrombin Mut Interp see note 02/24/18 14:06 Prothrombin Gene Mutate see note 02/24/18 14:06 Prothromb Gene Review see note 02/24/18 14:06 - Hospital Course Hospital Course: Pt admitted for CHF. Pt seen c/o Cardio and pulmonary. Patient work up showed large PE on both lung d field. His chest CT showed bronchiectasis & leg doppler with acute trhrombus. Pt in hosp had ? TIA and Pulmonary got Neuro consult. Head MRI showed lacunar infarcts. Patient initially place on Heparin and later placed on Eliquis. Patient improve and still short of breath but do not want subacute. Patient discharge home. Discharge Exam - Head Exam Head Exam: NORMAL INSPECTION - Eye Exam Eye Exam: Normal appearance - ENT Exam ENT Exam: Mucous Membranes Dry - Neck Exam Neck exam: Full Rom - Respiratory Exam Respiratory Exam: Decreased Breath Sounds. absent: Rales, Rhonchi, Wheezes - Cardiovascular Exam Cardiovascular Exam: REGULAR RHYTHM, +S1. absent: Gallop, JVD, Systolic Murmur - GI/Abdominal Exam GI & Abdominal Exam: Soft. absent: Pulsatile Mass, Tenderness - Extremities Exam Extremities exam: full ROM, normal capillary refill, pedal pulses present - Neurological Exam Neurological exam: Abnormal Gait, Alert, Oriented x3 Discharge Plan - Follow Up Plan Condition: GUARDED Disposition: HOME/ ROUTINE Instructions: Heart Failure, Adult (DC), Peripheral Vascular (Arterial) Disease (DC), Pulmonary Embolism (Blood Clot in the Lungs) (DC), Apixaban, Amlodipine Additional Instructions: Please follow up with Dr. Hughes in one week, call for appointment. Eliquis and Sadec sent to pharmacy electronically. Return to ED for any new or worsening symptoms. Referrals: Ray Liriano MD [Staff Provider] - Osei Clemens MD [Staff Provider] - Angel Hughes MD [Staff Provider] - Joce Castillo MD [Staff Provider] - Augustus Hardwick MD [Staff Provider] - Jeffrey Packer Jr., MD [Staff Provider] -
== END 2018-03-04 14:15 | disposition home or self-care (01) | DRG 291 ==
LOC: C.ER 09:34 → C.9E 12:02 → C.5S 02-24 07:21
PROVIDERS: ADMIT Internal Medicine; ATTEND Internal Medicine
DX: I11.0 Hypertensive heart disease with heart failure (principal); I26.99 Other pulmonary embolism without acute cor pulmonale; G81.94 Hemiplegia, unspecified affecting left nondominant side; I82.432 Acute embolism and thrombosis of left popliteal vein; D68.9 Coagulation defect, unspecified; I82.411 Acute embolism and thrombosis of right femoral vein; E87.5 Hyperkalemia; I50.9 Heart failure, unspecified; N40.0 Benign prostatic hyperplasia without lower urinary tract symptoms; Z51.5 Encounter for palliative care; R09.02 Hypoxemia